=== PATIENT | male | born 1950 | race Caucasian/White ===

== ENCOUNTER 2017-09-14 11:22 | Inpatient (IN) ==
[2017-09-14 12:47] VITALS: BMI 37.6
[2017-09-14] MEDS ORDERED: ALBUTEROL 2.5mg/3ml (0.083%) NEB AEROSOL PRN (13:15)
[2017-09-14] MEDS ORDERED: ACETAMINOPHEN 325 MG TABLET PO PRN (13:15)
--- OUTSIDE RECORDS SUMMARY | 2017-09-14 13:24 | External Medical Summary | Continuity of Care Document ---
:1950 Author Organization [facility] Care Team Providers Name Role Phone Surinder Pleitez MD Unavailable Unavailable Insurance Providers Payer Name Policy Number Subscriber Name Relationship Humana [id number] JesusJunior Sr 17 Self / Same As Patient Medicare A And B [id number] Junior Lee Sr 18 Self / Same As Patient Advance Directives Directive Response Recorded Date/Time Advanced Directives Not applicable 01/09/16 3:40am Chief Complaint and Reason for Visit Chief Complaint Pain Reason for Visit [id number] Problems Active Problems Medical Problem Onset Date Status Ureterolithiasis ~10/31/2014 Acute Medications Current Home Medications Medication Dose Units Route Directions Days/Qty Instructions Start Date Acetaminophen/Hydr 1-2 Tab ORAL Every 6 Hours as 20 01/09/16 ocodone Bitart 1 needed for Pain Each Tamsulosin Hcl 0.4 0.4 Mg ORAL Daily 7 01/09/16 Mg Past Home Medications Medication Directions Ordered Status Hydrocodone Bit/Acetaminophen 1 Every 4HRS as needed for Severe 10/31/14 Discontinued Each Tablet, 1 Each Oral Pain Hydrocodone Bit/Acetaminophen 1 Four Times Daily as needed for 05/23/15 Discontinued Each Tablet, 1 Each Oral Severe Pain Social History Query Response Start Date Stop Date Smoking Status Never smoker Hospital Discharge Instructions No hospital discharge instructions. Plan of Care Discharge Date 01/09/16 5:00am Disposition 01 HOME OR SELF-CARE Condition at Discharge Stable Instructions/Education Provided Nephrolithiasis (ED) Renal Colic (ED) Prescriptions See Medication Section Referrals Surinder Pleitez MD - Additional Instructions/Education Follow up in the office if symptoms not completely resolved in 3-5 days, sooner if worsen. Ibuprofen 800mg 4 times daily for pain. Some of your test results may not be complete prior to your leaving the Emergency Department. The Emergency Department is not authorized to give test results over the phone. Please contact the doctor's office listed in this packet of information for your final results. Follow up with your primary care physician or return to the Emergency Department for worsening or worrisome symptoms. * Emergency Department phone number: [phone], x [phone]* MEDICAL RECORD If you need copies of your X-rays, call [phone] x [phone]. If you need copies of your medical record, including lab results, a signed authorization for release of records will be required. A telephone call for release of Health Information is not allowed. BILLING Billing can sometimes be confusing and frustrating. To help avoid confusion in the future, please take a moment to acquaint yourself with the billing parties for services. [employer] Emergency Room Services [facility] Physician Services [facility] X[facility] Patients will receive bills for services from the appropriate provider. If you have any questions about your [facility] bill, our staff will be happy to assist you. Please call [phone], and ask for the billing department. THANK YOU for choosing [facility] as your emergency care provider! Care Plan and Goals ~~Discharge Care Plan~~ Problem: Kidney stone Goal: Pass the kidney stone and decrease pain. Instructions: Strain all urine. When you pass the kidney stone, keep stone and take it to the physician's office as directed, for stone analysis. Drink 6-8 glasses of water or fresh squeezed lemonade. Follow discharge instructions as directed. Functional Status No functional status results. Allergies, Adverse Reactions, Alerts No known allergies. Immunizations Name Given Type Status Date Influenza Vaccine Received if Current 01/07/16 Historical Historical Vital Signs Acute Vital Signs Vital Response Date/Time Temperature (Fahrenheit) 97.5 01/09/2016 5:33am Pulse 91 bpm 01/09/2016 5:33am Respirations 20 01/09/2016 5:33am Height 6 ft 2 in Weight 352 lb Body Mass Index 45.0 kg/m^2 Results Laboratory Results Test Name Result Units Flags Reference Collection Result Comments Date/Time Date/Time White Blood Count 8.28 10^3uL 4.0-11.0 01/09/2016 01/09/2016 4:00am 4:27am Red Blood Count 4.19 10^6uL L 4.50-5.50 01/09/2016 01/09/2016 4:00am 4:27am Hemoglobin 13.5 g/dL 13.5-17.0 01/09/2016 01/09/2016 4:00am 4:27am Hematocrit 38.90 % L 39.00-50.00 01/09/2016 01/09/2016 4:00am 4:27am Mean Corpuscular 93 FL 80-100 01/09/2016 01/09/2016 Volume 4:00am 4:27am Mean Corpuscular 32.2 PG 26.0-34.0 01/09/2016 01/09/2016 Hemoglobin 4:00am 4:27am Mean Corpuscular 34.7 g/dL 31.0-37.0 01/09/2016 01/09/2016 Hemoglobin Concent 4:00am 4:27am Red Cell 13.0 % 11.8-15.6 01/09/2016 01/09/2016 Distribution Width 4:00am 4:27am Platelet Count 179 10^3uL 150-450 01/09/2016 01/09/2016 4:00am 4:27am Mean Platelet 9.9 FL H 6.0-9.5 01/09/2016 01/09/2016 Volume 4:00am 4:27am Neutrophils (%) 66 % 51-67 01/09/2016 01/09/2016 (Auto) 4:00am 4:27am Lymphocytes (%) 20 % 20-46 01/09/2016 01/09/2016 (Auto) 4:00am 4:27am Monocytes (%) 11 % 3-11 01/09/2016 01/09/2016 (Auto) 4:00am 4:27am Eosinophils (%) 3 % 0-4 01/09/2016 01/09/2016 (Auto) 4:00am 4:27am Basophils (%) 0 % 0-2 01/09/2016 01/09/2016 (Auto) 4:00am 4:27am Neutrophils # 5.5 X10^3 01/09/2016 01/09/2016 (Auto) 4:00am 4:27am Lymphocytes # 1.6 X10^3 01/09/2016 01/09/2016 (Auto) 4:00am 4:27am Monocytes # (Auto) 0.9 X10^3 01/09/2016 01/09/2016 4:00am 4:27am Eosinophils # 0.2 10^3uL 01/09/2016 01/09/2016 (Auto) 4:00am 4:27am Basophils # (Auto) 0.0 10^3uL 01/09/2016 01/09/2016 4:00am 4:27am Volume Urine 12 mL 01/09/2016 01/09/2016 Centrifuged 3:40am 4:32am Urine Collection CLEAN 01/09/2016 01/09/2016 Type CATCH 3:40am 4:32am Urine Color Yellow 01/09/2016 01/09/2016 3:40am 4:31am Urine Clarity Clear 01/09/2016 01/09/2016 3:40am 4:31am Urine pH 5.0 5.0 - 8.0 01/09/2016 01/09/2016 3:40am 4:31am Urine Specific >=1.030 1.005-1.030 01/09/2016 01/09/2016 [place] 3:40am 4:31am Urine Protein 1+ H Negative 01/09/2016 01/09/2016 3:40am 4:31am Urine Glucose (UA) Negative Negative 01/09/2016 01/09/2016 3:40am 4:31am Urine RBC (Auto) 3+ H Negative 01/09/2016 01/09/2016 3:40am 4:31am Urine Ketones Negative Negative 01/09/2016 01/09/2016 3:40am 4:31am Urine Nitrite Negative Negative 01/09/2016 01/09/2016 3:40am 4:31am Urine Bilirubin Negative Negative 01/09/2016 01/09/2016 3:40am 4:31am Urine Urobilinogen 0.2 mg/dL 0.2-1.0 01/09/2016 01/09/2016 3:40am 4:31am Urine Leukocyte Negative Negative 01/09/2016 01/09/2016 Esterase 3:40am 4:31am Urine RBC >100 /HPF 01/09/2016 01/09/2016 3:40am 4:32am Urine WBC 2-5 /HPF 01/09/2016 01/09/2016 3:40am 4:32am Urine Bacteria None Seen /HPF 01/09/2016 01/09/2016 3:40am 4:32am Urine Squamous 10-20 /LPF 01/09/2016 01/09/2016 Epithelial Cells 3:40am 4:32am Urine Mucus 2+ H 01/09/2016 01/09/2016 3:40am 4:32am Sodium Level 143 mmol/L 135-150 01/09/2016 01/09/2016 4:00am 4:26am Potassium Level 5.0 mmol/L # 3.5-5.1 01/09/2016 01/09/2016 4:00am 4:26am Chloride Level 105 mmol/L 98-108 01/09/2016 01/09/2016 4:00am 4:26am Carbon Dioxide 28 mmol/L 22-29 01/09/2016 01/09/2016 Level 4:00am 4:26am Anion Gap 15.1 MEQ/L H 3-15 01/09/2016 01/09/2016 4:00am 4:26am Blood Urea Nitrogen 17 mg/dL # 7-18 01/09/2016 01/09/2016 4:00am 4:26am Creatinine 1.30 mg/dL 0.8-1.5 01/09/2016 01/09/2016 4:00am 4:26am BUN/Creatinine 13 10-20 01/09/2016 01/09/2016 Ratio 4:00am 4:26am Estimat Glomerular 66.8 01/09/2016 01/09/2016 Filtration Rate 4:00am 4:26am Estimated GFR 55.2 01/09/2016 01/09/2016 (Non- 4:00am 4:26am [place] Glucose Level 117 mg/dL H 70-110 01/09/2016 01/09/2016 4:00am 4:26am Calculated 278 mosm/L L 280-300 01/09/2016 01/09/2016 Osmolality 4:00am 4:26am Calcium Level 9.0 mg/dL 8.8-10.8 01/09/2016 01/09/2016 4:00am 4:26am Calcium/Ionized 3.7 mg/dL L 3.8-4.6 01/09/2016 01/09/2016 Calcium Ratio 4:00am 4:26am Total Bilirubin 0.8 mg/dL 0.1-1.0 01/09/2016 01/09/2016 4:00am 4:26am Alkaline 84 U/L 38-126 01/09/2016 01/09/2016 Phosphatase 4:00am 4:26am Aspartate Amino 28 U/L 15-37 01/09/2016 01/09/2016 Transf (AST/SGOT) 4:00am 4:26am Alanine 24 U/L L 30-65 01/09/2016 01/09/2016 Aminotransferase 4:00am 4:26am (ALT/SGPT) Total Protein 8.1 g/dL 6.4-8.5 01/09/2016 01/09/2016 4:00am 4:26am Albumin 3.9 g/dL 3.4-5.0 01/09/2016 01/09/2016 4:00am 4:26am Albumin/Globulin 0.928 L 1.1-1.8 01/09/2016 01/09/2016 Ratio 4:00am 4:26am Procedures No known history of procedures. Encounters Encounter Location Arrival/Admit Date Discharge/Depart Date Attending Provider Departed [facility] 01/09/16 3:21am 01/09/16 5:00am [facility] Reyna Hare MD Recent Diagnosis
--- OUTSIDE RECORDS SUMMARY | 2017-09-14 13:24 | External Medical Summary | Summary of Care ---
:1950 Author Name Nayana Griggs Address [address] Unavailable [place], [place] [id number] Care Team Providers Name Role Phone Nayana Griggs Unavailable Unavailable Surinder Henriquez Unavailable Unavailable Unavailable Unavailable Unavailable Functional Status Functional Status Health Issues Name Dates Details Functional status health issues are not documented Status: Cognitive Status Health Issues Name Dates Details Cognitive status health issues are not documented Status: Problems Name Dates Details Hematuria (599.70, R31.9) Status: Active Recurrent UTI (urinary tract infection) (599.0, N39.0) Status: Active Postoperative visit (V58.49, Z48.89) Status: Active Infected tooth (522.4, K04.7) Status: Active 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.2, D49.2) Status: Active Medications Name Dates Details Medication not documented Allergies and Adverse Reactions Name Dates Details No Known Allergies (Allergy) Status: Active Past Medical History Name Dates Details History of kidney stones (V13.01, Z87.442) Status: Resolved History of Request for circumcision Status: Resolved Procedures Procedure Dates Details History of Elective Cardioversion External Completed: History of Elective Circumcision Procedures not documented Immunization Name Dates Details Immunizations not documented Family History Mother Name Dates Details Family history of Status: Active Family history of Dementia in Alzheimer's disease (331.0, G30.9) Status: Active Father Name Dates Details Family history of Status: Active Family history of lung cancer (V16.1, Z80.1) Status: Active Social History Name Dates Details - Status: Smoking Status Name Dates Details Former smoker Vital Signs Date Test Result Details 15-Mar-2016 08:19 BP Systolic 130 mm[Hg] Status: Comments: Location: ; Position: BP Diastolic 98 mm[Hg] Status: Comments: Location: ; Position: Temperature 97.5 f Status: Comments: Method: Heart Rate 92 /min Status: Comments: Location: ; Weight 356.375 lb Status: Physical Findings 98 Status: Comments: O2 Saturation Body Mass Index Calculated 45.76 kg/m2 Status: Body Surface Area Calculated 2.78 m2 Status: Results Date Description Value Details Results not documented Plan of Care Name Dates Details Planned Observations Planned Goals not documented Instructions Name Dates Details Instructions not documented Encounters Appointment; Shaw Saravia M.D. On 31-Dec-2015 Encounter Diagnosis: Problem not documented 16:20 Appointment; Jose Eduardo Bradley M.D. On Encounter Diagnosis: Problem not documented 10:30 Appointment; Jose Eduardo Bradley M.D. On Encounter Diagnosis: Problem not documented 09:00 Appointment; Jose Eduardo Bradley M.D. On Encounter Diagnosis: Problem not documented 11:00
--- OUTSIDE RECORDS SUMMARY | 2017-09-14 13:24 | External Medical Summary | Summary of Care ---
:1950 Author Name Jose Eduardo Bradley M.D. Address Unavailable Unavailable , Care Team Providers Name Role Phone MartinezSurinder Primary Care Provider Unavailable Unavailable Unavailable Unavailable Functional Status Functional Status Health Issues Name Dates Details Functional status health issues are not documented Status: Cognitive Status Health Issues Name Dates Details Cognitive status health issues are not documented Status: Problems Name Dates Details Request for circumcision Status: Active Encounter for circumcision (V50.2, Z41.2) Status: Active Phimosis (605, N47.1) Status: Active Medications Name Dates Details No Reported Medications Refills: 0 Active Allergies and Adverse Reactions Name Dates Details No Known Allergies Status: Active Past Medical History Name Dates Details History of kidney stones (V13.01, Z87.442) Status: Resolved Procedures Procedure Dates Details History of Elective Cardioversion External Completed: Procedures not documented Immunization Name Dates Details Immunizations not documented Family History Mother Name Dates Details Family history of Status: Active Family history of Dementia in Alzheimer's disease (331.0, G30.9) Status: Active Father Name Dates Details Family history of Status: Active Family history of lung cancer (V16.1, Z80.1) Status: Active Social History Name Dates Details Smoking StatusFormer smoker Vital Signs Date Test Result Details 08:15 BP Systolic 169 mm[Hg] Status: BP Diastolic 90 mm[Hg] Status: Heart Rate 89 /min Status: Height 74 in Status: Weight 316 lb Status: Body Mass Index Calculated 40.57 kg/m2 Status: Body Surface Area Calculated 2.64 m2 Status: 10:46 Height 74 in Status: Results Date Description Value Details Results not documented Plan of Care Planned Observations Name Dates Details Planned Goals not documented Goal Instructions Instructions not documented Encounters Appointment; Jose Eduardo Bradley On Encounter Diagnosis: Problem not documented 09:00 Appointment; Jose Eduardo Bradley On Encounter Diagnosis: Problem not documented 11:00
--- OUTSIDE RECORDS SUMMARY | 2017-09-14 13:24 | External Medical Summary | Summary of Care ---
:1950 Author Name Jose Eduardo Bradley M.D. Address Unavailable Unavailable , Care Team Providers Name Role Phone Jem Sherwood M.D. Unavailable Unavailable Jose Eduardo Bradley M.D. Unavailable Unavailable Chris Crawford M.D. Unavailable Unavailable Surinder Henriquez Primary Care Provider Unavailable Unavailable Unavailable Unavailable Functional Status Functional Status Health Issues Name Dates Details Functional status health issues are not documented Status: Cognitive Status Health Issues Name Dates Details Cognitive status health issues are not documented Status: Problems Name Dates Details Request for circumcision Status: Active Encounter for circumcision (V50.2, Z41.2) Status: Active Balanitis (607.1, N48.1) Status: Active Phimosis (605, N47.1) Status: Active Medications Name Dates Details Aspirin 81 MG TABS Refills: 0 Jem Sherwood M.D. Started ActiveAtenolol 50 MG Oral Tablet TAKE 1 TABLET DAILY. Quantity: 30 Refills: 3 Chris Crawford M.D. Started ActiveClotrimazole-Betamethasone 1-0.05 % External Cream Apply to affected area twice daily x 2 weeks Quantity: 1 Refills: 0 Jose Eduardo Bradley M.D. Started Jetoww14 GM Tube Allergies and Adverse Reactions Name Dates Details [...] smoker Vital Signs Date Test Result Details 10:46 Height 74 in Status: Results Date Description Value Details Results not documented Plan of Care Planned Observations Name Dates Details Planned Goals not documented Goal Planned Encounters Appointment; Provider: Jose Eduardo Bradley On 09:00 Instructions Instructions not documented Encounters Appointment; Jose Eduardo Bradley On Encounter Diagnosis: Problem not documented 11:00
--- OUTSIDE RECORDS SUMMARY | 2017-09-14 13:25 | External Medical Summary | Summary of Care ---
:1950 Author Name Jose Eduardo Bradley M.D. Address [address] [place] [address] [place] [address] Care Team Providers Name Role Phone Jose Eduardo Bradley M.D. Unavailable Unavailable Surinder Henriquez Unavailable Unavailable Unavailable [...] Active Postoperative visit (V58.49, Z48.89) Status: Active Medications Name Dates Details TraMADol HCl - 50 MG Oral Tablet 1 tablet po every 4 hours prn Quantity: 40 Refills: 0 Jose Eduardo Bradley M.D. Start Active Allergies and Adverse Reactions Name Dates [...] Details 08:15 BP Systolic 169 mm[Hg] Status: Comments: Location: ; Position: BP Diastolic 90 mm[Hg] Status: Comments: Location: ; Position: Heart Rate 89 /min Status: Comments: Location: ; Height 74 in Status: Weight 316 lb Status: Body Mass Index Calculated 40.57 kg/m2 Status: Body Surface Area Calculated 2.64 m2 Status: 10:46 Height 74 in Status: Results Date Description Value Details Results not documented Plan of Care Name Dates Details Planned Observations Planned Goals not documented Instructions Name Dates Details Instructions not documented Encounters Appointment; Jose Eduardo Bradley M.D. On Encounter Diagnosis: Problem not documented 09:00 Appointment; Jose Eduardo Bradley M.D. On Encounter Diagnosis: Problem not documented 11:00
--- OUTSIDE RECORDS SUMMARY | 2017-09-14 13:25 | External Medical Summary | Continuity of Care Document ---
:1950 Author Organization [facility] Care Team Providers Name Role Phone Surinder Pleitez MD Unavailable Unavailable Insurance Providers Payer Name Policy Number Subscriber Name Relationship [employer] [id number] Junior Lee Sr 17 Self / Same As Patient Medicare A And B [id number] Junior Lee Sr 17 Self / Same As Patient Advance Directives Directive Response Recorded Date/Time Advanced Directives No 05/06/16 7:05pm Chief Complaint and Reason for Visit Chief Complaint Skin Condition Reason for Visit Erythrasma Problems Active Problems Medical Problem Onset Date Status Erythrasma Unknown Acute Left medial knee pain Unknown Acute Ureterolithiasis ~10/31/2014 Acute Medications Current Home Medications Medication Dose Units Route Directions Days/Qty Instructions Start Date Ibuprofen (Motrin) 400 Mg ORAL As Needed 05/06/16 400 Mg Erythromycin 30 Gm TOPICAL Twice A Day 10 Days 05/06/16 Base/Ethanol 30 Gm Erythromycin Base 500 Mg ORAL Four Times Daily 10 Days 05/06/16 500 Mg Past Home Medications Medication Directions Ordered Status Hydrocodone Bit/Acetaminophen 1 Every 4HRS as needed for Severe 10/31/14 Discontinued Each Tablet, 1 Each Oral Pain Hydrocodone Bit/Acetaminophen 1 Four Times Daily as needed for 05/23/15 Discontinued Each Tablet, 1 Each Oral Severe Pain Acetaminophen/Hydrocodone Bitart Every 6 Hours as needed for 01/09/16 Discontinued 1 Each Tablet, 1-2 Tab Oral Pain Tamsulosin Hcl 0.4 Mg Cap, 0.4 Daily 01/09/16 Discontinued Mg Oral Tramadol Hcl 50 Mg Tablet, 50 Mg Four Times Daily as needed for 03/02/16 Discontinued Oral Severe Pain Social History Query Response Start Date Stop Date Smoking Status Former smoker Hospital Discharge Instructions No hospital discharge instructions. Plan of Care Discharge Date 05/06/16 8:30pm Disposition 01 HOME OR SELF-CARE Condition at Discharge Stable Instructions/Education Provided Cellulitis (Skin Infection), Adult (DC) Prescriptions See Medication Section Referrals Surinder Pleitez MD - Additional Instructions/Education Erythromycin 2% Gel, as Rx'd, apply twice a day for 10 days, 1 refill. Erythromycin 500mg as Rx'd, orally, four times a day for 10 days, 1 refill. Keep area as dry as possible. Loose clothing. Try to lose weight. Avoid excessive heat also -- no heat lamps on the area. Use an Anti-bacterial soap, such as Dove or other brand, daily. Follow up with PCP next week to re-evaluate. Some of your test results may not [...] worrisome symptoms. * Emergency Department phone number: [phone], x [phone]* MEDICAL RECORD If you need copies of your X-rays, call [phone] x [phone]. If you need copies of [...] the billing parties for services. SERVICE [employer]ILLING [employer] Emergency Room Services [facility] Physician Services [facility] X-rays [facility] Patients will receive bills for services from the appropriate provider. If you have any questions about your [facility] bill, our staff will be happy to assist you. Please call [phone], and ask for the billing department. THANK YOU for choosing [facility] as your emergency care provider! Care Plan and Goals ~~Discharge Care Plan~~ Problem: Rash/hives Goal: Decreased redness, itching, and blotches. Instructions: Take medication(s) as directed. Keep a log of medication times and dosages to avoid over or under dosage. Avoid triggers that cause your rash or hives. Call return for worsening of symptoms Functional Status No functional status results. Allergies, Adverse Reactions, Alerts Allergen Type Severity Reaction Status Last Updated No Known Allergies Allergy Unknown Active 05/06/16 Immunizations Name Given Type Status Date Influenza Vaccine Received if Current 01/07/16 Historical Historical Vital Signs Acute Vital Signs Vital Response Date/Time Temperature (Fahrenheit) 99.0 05/06/2016 7:05pm Pulse 77 bpm 05/06/2016 8:28pm Respirations 20 05/06/2016 8:28pm Height 6 ft 2 in Weight 360 lb Body Mass Index 46.0 kg/m^2 Results No known relevant diagnostic tests, laboratory data and/or discharge summary. Procedures No known history of procedures. Encounters Encounter Location Arrival/Admit Date Discharge/Depart Date Attending Provider Departed [facility] 05/06/16 6:58pm 05/06/16 8:30pm [facility] Emergency Room [facility] DIEGO Duarte MD Recent Diagnosis
--- OUTSIDE RECORDS SUMMARY | 2017-09-14 13:25 | External Medical Summary | Continuity of Care Document ---
:1950 Author Organization Care Team Providers Name Role Phone Surinder Pleitez MD Unavailable Unavailable Insurance Providers Payer Name Policy Number Subscriber Name Relationship [employer] [id number] Junior Lee Sr 17 Self / Same As Patient Medicare A And B [id number] Junior Lee Sr 17 Self / Same As Patient Advance Directives Directive Response Recorded Date/Time Advanced Directives No 03/02/16 7:50pm Chief Complaint and Reason for Visit Chief Complaint Pain Reason for Visit Left medial knee pain Problems Active Problems Medical Problem Onset Date Status Left medial knee pain Unknown Acute Ureterolithiasis ~10/31/2014 Acute Medications Current Home Medications Medication Dose Units Route Directions Days/Qty Instructions Start Date Tramadol Hcl 50 Mg 50 Mg ORAL Four Times Daily 20 03/02/16 as needed for Severe Pain Past Home Medications Medication Directions Ordered Status [...] Cap, 0.4 Daily 01/09/16 Discontinued Mg Oral Social History Query Response Start Date Stop Date Smoking Status Never smoker Hospital Discharge Instructions No hospital discharge instructions. Plan of Care Discharge Date 03/02/16 8:45pm Disposition 01 HOME OR SELF-CARE Condition at Discharge Stable Instructions/Education Provided Knee Sprain (ED) Prescriptions See Medication Section Referrals Surinder Pleitez MD - Additional Instructions/Education Keep Left knee ALESHIA and splint, except to shower. Elevate, ice for another 24 hours. OTC Tylenol, per bottle, as main pain med. Ultram 50mg as Dispensed / Rx'd, as needed for severe pain. Follow up with PCP next week. You might need an MRI to further evaluate. Some of your test results may not [...] worrisome symptoms. * Emergency Department phone number: [phone], x [phone]* MEDICAL RECORD If you need copies of your X-rays, call [phone]. If you need copies of [...] [facility] [employer] Emergency Room Services Physician Services [facility] Patients will receive bills for services from the appropriate provider. If you have any questions about your bill, our staff will be happy to assist you. Please call [phone], and ask for the billing department. THANK YOU for choosing as your emergency care provider! Care Plan and Goals ~~Discharge Care Plan~~ Problem: Sprain, strain or fracture of extremity Goal: Extremity will be pink and warm to touch, with good movement of fingers or toes. Instructions: Apply ice bag and elevate extremity above the level of your heart. Monitor extremity for pink color to fingers or toes and movement. Call your physician if extremity becomes blue in color or cool to touch. Some swelling of fingers or toes is expected, continue to wiggle fingers and toes and keep elevated. Allow 24-48 hours for the splint to dry completely. Do not place splint on a hard surface to avoid a pressure area. Take medication(s) as directed. Follow up with Orthopedic or primary care physician as directed. Functional Status No functional status results. Allergies, Adverse Reactions, Alerts Allergen Type Severity Reaction Status Last Updated No Known Allergies Allergy Unknown Active 03/02/16 Immunizations Name Given Type Status Date Influenza Vaccine Received if Current 01/07/16 Historical Historical Vital Signs Acute Vital Signs Vital Response Date/Time Temperature (Fahrenheit) 97.9 03/02/2016 8:46pm Pulse 90 bpm 03/02/2016 8:46pm Respirations 20 03/02/2016 8:46pm Height 6 ft 2 in Weight 361 lb Body Mass Index 46.0 kg/m^2 Results No known relevant diagnostic tests, laboratory data and/or discharge summary. Procedures No known history of procedures. Encounters Encounter Location Arrival/Admit Date Discharge/Depart Date Attending Provider Departed Mackenzie 03/02/16 7:50pm 03/02/16 8:45pm LUZ [facility] Emergency Room [facility] DIEGO Duarte MD Recent Diagnosis
--- OUTSIDE RECORDS SUMMARY | 2017-09-14 13:25 | External Medical Summary | Summary of Care ---
:1950 Author Name Jose Eduardo Bradley M.D. Address [address] [place] [address] [place] [address] Care Team Providers Name Role Phone Jose Eduardo Bradley M.D. Unavailable Unavailable Surinder Henriquez Primary Care [...] N47.1) Status: Active Medications Name Dates Details TraMADol HCl - 50 MG Oral Tablet 1 tablet po every 4 hours prn Quantity: 40 Refills: 0 Jose Eduardo Bradley M.D. Started Active Allergies and Adverse Reactions Name Dates [...] Encounters Appointment; Provider: Jose Eduardo Bradley On 10:30 Appointment; Provider: Jose Eduardo Bradley On 13:30 Instructions Instructions not documented Encounters Appointment; Jose Eduardo Bradley On Encounter Diagnosis: Problem not documented 09:00 Appointment; Jose Eduardo Bradley On Encounter Diagnosis: Problem not documented 11:00
--- OUTSIDE RECORDS SUMMARY | 2017-09-14 13:25 | External Medical Summary | Continuity of Care Document ---
:1950 Author Organization [facility] Care Team Providers Name Role Phone Surinder Pleitez MD Unavailable Unavailable Insurance Providers Payer Name Policy Number Subscriber Name Relationship [employer] [id number] Junior Lee Sr 17 Self / Same As Patient Advance Directives Directive Response Recorded Date/Time Advanced Directives No 05/27/16 7:46am Chief Complaint and Reason for Visit Chief Complaint Skin Condition Reason for Visit Abscess of skin or subcutaneous tissue [id number] Problems Active Problems Medical Problem Onset Date Status Abscess of leg, right Unknown Acute Abscess of skin or subcutaneous tissue Unknown Acute Erythrasma ~05/06/2016 Acute Left medial knee pain Unknown Resolved Ureterolithiasis ~10/31/2014 Resolved Medications Current Home Medications Medication Dose Units Route Directions Days/Qty Instructions Start Date Ibuprofen (Motrin) 400 Mg ORAL As Needed 05/06/16 400 Mg Erythromycin 30 Gm TOPICAL Twice A Day 10 Days 05/06/16 Base/Ethanol 30 Gm Erythromycin Base 500 Mg ORAL Four Times Daily 10 Days 05/06/16 500 Mg Sulfamethoxazole/T 1 Tab ORAL Three Times A 30 05/27/16 rimethoprim 1 Each Day Past Home Medications Medication Directions Ordered Status [...] discharge instructions. Plan of Care Discharge Date 05/27/16 8:10am Disposition 01 HOME OR SELF-CARE Condition at Discharge Stable Instructions/Education Provided Skin Abscess Prescriptions See Medication Section Referrals Surinder Pleitez MD - Additional Instructions/Education Some of your test results may not [...] worrisome symptoms. * Emergency Department phone number: [phone], x [phone]* MEDICAL RECORD If you need copies of your X-rays, call [phone]. If you need copies of [...] the billing parties for services. [facility] [employer] Emergency Room Services [facility] Physician Services [facility] X-rays [facility] Patients will receive bills for services from the appropriate provider. If you have any questions about your [facility] bill, our staff will be happy to assist you. Please call [phone], and ask for the billing department. THANK YOU for choosing [facility] as your emergency care provider! Care Plan and Goals ~~Discharge Care Plan~~ Problem: Wound care and treatment Goal: Wound will be clean and dry, without redness, swelling or drainage. Instructions: Take medication(s) as prescribed. Keep wound clean and dry. Apply antibiotic ointment as directed. Follow up with primary care physician as directed. Keep wound covered if working in an unclean environment. Functional Status No functional status results. Allergies, Adverse Reactions, Alerts Allergen Type Severity Reaction Status Last Updated No Known Allergies Allergy Unknown Active 05/27/16 Immunizations Name Given Type Status Date Influenza Vaccine Received if Current 01/07/16 Historical Historical Vital Signs Acute Vital Signs Vital Response Date/Time Temperature (Fahrenheit) 96.9 05/27/2016 8:01am Pulse 74 bpm 05/27/2016 8:01am Respirations 16 05/27/2016 8:01am Height 6 ft 2 in Weight 359 lb Body Mass Index 46.0 kg/m^2 Results No known relevant diagnostic tests, laboratory data and/or discharge summary. Procedures Procedure Status Date Provider(s) EMERGENCY DEPT VISIT Completed 05/06/16 Encounters Encounter Location Arrival/Admit Date Discharge/Depart Date Attending Provider Departed Mack[facility] 05/27/16 7:37am 05/27/16 8:10am [facility] Emergency Room [facility] PRADEEP Harrison MD Departed Arechiga 05/06/16 6:58pm 05/06/16 8:30pm [facility] Room [facility] DIEGO Duarte MD Recent Diagnosis
--- OUTSIDE RECORDS SUMMARY | 2017-09-14 13:25 | External Medical Summary | Summary of Care ---
:1950 Author Name Shaw Saravia M.D. Address Unavailable Unavailable , Care Team Providers Name Role Phone Shaw Saravia M.D. Unavailable Unavailable Surinder Henriquez Unavailable Unavailable [...] Active Infected tooth (522.4, K04.7) Status: Active Medications Name Dates Details Clarithromycin 500 MG Oral Tablet TAKE 1 TABLET EVERY 12 HOURS DAILY. Quantity: 20 Refills: 1 Shaw Saravia M.D. Start 31-Dec-2015 Active Allergies and Adverse Reactions Name Dates [...] smoker Vital Signs Date Test Result Details 31-Dec-2015 16:26 BP Systolic 148 mm[Hg] Status: Comments: Location: ; Position: BP Diastolic 90 mm[Hg] Status: Comments: Location: ; Position: Temperature 98.2 f Status: Comments: Method: Heart Rate 103 /min Status: Comments: Location: ; Weight 356 lb Status: Physical Findings 95 Status: Comments: O2 Saturation Body Mass Index Calculated 45.71 kg/m2 Status: Body Surface Area Calculated 2.78 m2 Status: Results Date Description Value Details Results not documented Plan of Care Name Dates Details Planned Observations Planned Goals not documented Interventions Provided Medication ChangesClarithromycin 500 MG Oral Tablet - Start Instructions Name Dates Details Instructions not documented Encounters Appointment; Jose Eduardo Bradley M.D. On Encounter Diagnosis: Problem not documented 10:30 Appointment; Jose Eduardo Bradley M.D. On Encounter Diagnosis: Problem not documented 09:00 Appointment; Jose Eduardo Bradley M.D. On Encounter Diagnosis: Problem not documented 11:00
--- OUTSIDE RECORDS SUMMARY | 2017-09-14 13:25 | External Medical Summary | Continuity of Care Document ---
:1950 Author Organization [facility] Care Team Providers Name Role Phone Surinder Pleitez MD Unavailable Unavailable Insurance Providers Payer Name Policy Number Subscriber Name Relationship [employer] [id number] Junior Lee Sr 17 Self / Same As Patient Chief Complaint and Reason for Visit Chief Complaint GI Complaint Reason for Visit [id number] Problems Medical Problems Problem Onset Date Status Ureterolithiasis ~10/31/2014 Active Medications Medication Dose Route Sig Days/Qty Instructions Order Discontinued Status Date Date Hydrocodone 1 Each ORAL EVERY 20 Qty Active Bit/Acetaminop 4HRS PRN 5 hen SEVERE PAIN Social History No social history. Hospital Discharge Instructions No hospital discharge instructions. Plan of Care Discharge Date 10/31/14 5:23am Disposition 01 HOME OR SELF-CARE Condition at Discharge Stable Instructions/Education Provided Nephrolithiasis (ED) Prescriptions See Medications Section Referrals Surinder Pleitez MD Additional Instructions/Education Push fluids. Strain urine, collect any stones for your PCP. OTC Ibuprofen 400mg every 6 to 8 hours with food as needed, as main pain med. Hydrocodone 5's as Dispensed / Rx'd, as needed for severe pain. Follow up with PCP in 3 days. Return to ER as needed. Some of your test results may not [...] worrisome symptoms. * Emergency Department phone number: [phone], x [phone]* MEDICAL RECORD If you need copies of your X-rays, call [phone]. If you need copies of [...] [facility]ICE [facility] [employer] Emergency Room Services [facility] Physician Services [facility] X-rays [facility] Patients will receive bills for services from the appropriate provider. If you have any questions about your [facility] bill, our staff will be happy to assist you. Please call [phone], and ask for the billing department. THANK YOU for choosing [facility] as your emergency care provider! Functional Status No functional status results. Allergies, Adverse Reactions, Alerts Allergen Type Severity Reaction Status Last Updated No Known Drug Allergies Active 10/31/14 Immunizations No immunization records. Vital Signs Acute Vital Signs Vital Response Date/Time Temperature (Fahrenheit) 97.4 Pulse 90 bpm Respirations 20 Height 6 ft 2 in Weight 356 lb Body Mass Index 45.0 kg/m^2 Results Test Source Date Result Interp. Ref. Range Comments Albumin/Globulin October 31, 1.058 L 1.1-1.8 Ratio 2014 2:47am Albumin October 31, 3.6 g/dL N 3.4-5.0 2014 2:47am Total Protein October 31, 7.0 g/dL N 6.4-8.5 2014 2:47am Alanine October 31, 21 U/L L 30-65 Aminotransferase 2015 (ALT/SGPT) 2:47am Aspartate Amino October 31, 25 U/L N 15-37 Transf (AST/SGOT) 2014 2:47am Alkaline Phosphatase October 31, 85 U/L N 38-126 2015 2:47am Total Bilirubin October 31, 0.5 mg/dL N 0.1-1.0 2014 2:47am Calcium/Ionized October 31, 4.1 mg/dL N 3.8-4.6 Calcium Ratio 2014 2:47am Calcium Level October 31, 9.2 mg/dL N 8.8-10.8 2014 2:47am Calculated Osmolality October 31, 280 mosm/L N [phone] 2:47am Glucose Level October 31, 133 mg/dL H 70-110 2014 2:47am Estimated GFR October 31, 48.1 (Non- 2015 2:47am Estimat Glomerular October 31, 58.2 Filtration Rate 2014 2:47am BUN/Creatinine Ratio October 31, 8 L 10-20 2014 2:47am Creatinine October 31, 1.47 mg/dL N 0.8-1.5 2014 2:47am Blood Urea Nitrogen October 31, 12 mg/dL N 7-18 2014 2:47am Anion Gap October 31, 14.7 MEQ/L N 3-15 2014 2:47am Carbon Dioxide Level October 31, 26 mmol/L N 22-29 2014 2:47am Chloride Level October 31, 107 mmol/L N 98-108 2014 2:47am Potassium Level October 31, 3.8 mmol/L N 3.5-5.1 2014 2:47am Sodium Level October 31, 144 mmol/L N [phone] 2:47am Urine Calcium Oxalate October 31, 1+ /HPF H Urine Crystals 2014 collection 2:40am method Clean Catch Urine Squamous October 31, 0-2 /LPF Urine Epithelial Cells 2015 collection 2:40am method Clean Catch Urine Bacteria October 31, None seen Urine 2015 /HPF collection 2:40am method Clean Catch Urine WBC October 31, None seen Urine 2015 /HPF collection 2:40am method Clean Catch Urine RBC October 31, 10-20 /HPF H Urine 2015 collection 2:40am method Clean Catch Urine Collection Type October 31, Random voided Urine 2015 collection 2:40am method Clean Catch Volume Urine October 31, <10ml Urine Centrifuged 2015 unspun collection 2:40am method Clean Catch Urine Leukocyte October 31, Negative Negative Urine Esterase 2014 collection 2:40am method Clean Catch Urine Urobilinogen October 31, 1.0 mg/dL 0.2-1.0 Urine 2015 collection 2:40am method Clean Catch Urine Bilirubin October 31, Negative Negative Urine 2014 collection 2:40am method Clean Catch Urine Nitrite October 31, Negative Negative Urine 2014 collection 2:40am method Clean Catch Urine Ketones October 31, Negative Negative Urine 2014 collection 2:40am method Clean Catch Urine RBC (Auto) October 31, 3+ H Negative Urine 2014 collection 2:40am method Clean Catch Urine Glucose (UA) October 31, Negative Negative Urine 2014 collection 2:40am method Clean Catch Urine Protein October 31, Trace H Negative Urine 2014 collection 2:40am method Clean Catch Urine Specific October 31, >=1.030 1.005-1.030 Urine Iron 2014 collection 2:40am method Clean Catch Urine pH October 31, 5.0 5.0 - 8.0 Urine 2014 collection 2:40am method Clean Catch Urine Clarity October 31, Clear Urine 2014 collection 2:40am method Clean Catch Urine Color October 31, Yellow Urine 2014 collection 2:40am method Clean Catch Basophils # (Auto) October 31, 0.0 10^3uL 2014 2:47am Eosinophils # (Auto) October 31, 0.4 10^3uL 2014 2:47am Monocytes # (Auto) October 31, 0.8 X10^3 2014 2:47am Lymphocytes # (Auto) October 31, 2.0 X10^3 2014 2:47am Neutrophils # (Auto) October 31, 5.4 X10^3 2014 2:47am Basophils (%) (Auto) October 31, 0 % N 0-2 2014 2:47am Eosinophils (%) October 31, 4 % N 0-4 (Auto) 2014 2:47am Monocytes (%) (Auto) October 31, 10 % N 3-11 2014 2:47am Lymphocytes (%) October 31, 23 % N 20-46 (Auto) 2014 2:47am Neutrophils (%) October 31, 63 % N 51-67 (Auto) 2014 2:47am Mean Platelet Volume October 31, 9.7 FL H 6.0-9.5 2014 2:47am Platelet Count October 31, 172 10^3uL N 121-669 1817 2:47am Red Cell Distribution October 31, 12.6 % N 11.8-15.6 Width 2014 2:47am Mean Corpuscular October 31, 35.1 g/dL N 31.0-37.0 Hemoglobin Concent 2014 2:47am Mean Corpuscular October 31, 32.7 PG N 26.0-34.0 Hemoglobin 2014 2:47am Mean Corpuscular October 31, 93 FL N 80-100 Volume 2014 2:47am Hematocrit October 31, 39.00 % N 39.00-50.00 2014 2:47am Hemoglobin October 31, 13.7 g/dL N 13.5-17.0 2014 2:47am Red Blood Count October 31, 4.19 10^6uL L 4.50-5.50 2014 2:47am White Blood Count October 31, 8.56 10^3uL N 4.0-11.0 2014 2:47am Procedures No known history of procedures. Encounters Encounter Location Date/Time Departed Emergency Room [facility] 10/31/14 2:26am Recent Diagnosis
--- NOTE | 2017-09-14 13:33 | IRU History & Physical Report ---
HPI IRU Date: Date: 09/14/17 Time: 1330 HPI: Mr. Lee is admitted to the rehabilitation area to try to regain the skills to return to his home. He sustained a stroke on 05/13/2017. Siew affected his left side. Significant sore throat. He has been in skilled rehabilitation at [facility] has continued to progress. He is interested in returning home but needs more intensive rehabilitation to meet that goal. PFSH Hyperglycemia Sleep apnea Hypertension Atrial fib Review of Systems - Constitutional Constitutional: Present: weakness. Absent: anorexia - Cardiovascular Rhythm: Present: abnormal rhythm - Musculoskeletal Musculoskeletal: Present: muscle weakness Medications Home Medications Medication Instructions Recorded Confirmed Type Acetaminophen [Tylenol 650 mg/20.3 325 mg PO Q4H PRN 09/14/17 09/14/17 History ml Soln] Albuterol Sulfate 2.5 mg AEROSOL Q6H PRN 09/14/17 09/14/17 History Aspirin 1 tab PO DAILY 09/14/17 09/14/17 History Atorvastatin [Lipitor] 1 tab PO HS 09/14/17 09/14/17 History Clotrimazole 1% Cream [LOTRIMIN 15 applicatio TOP TID 09/14/17 09/14/17 History Cream] Cyanocobalamin (Vitamin B-12) 1 tab PO DAILY 09/14/17 09/14/17 History [Vitamin B-12] Ferrous Gluconate 1 tab PO WB 09/14/17 09/14/17 History Gabapentin 300 mg PO TID 09/14/17 09/14/17 History Melatonin/Pyridoxine HCl (B6) 1 each PO DAILY PRN 09/14/17 09/14/17 History [Melatonin 3 mg Tablet] Metoprolol Tartrate [Lopressor] 25 mg PO BIDWM 09/14/17 09/14/17 History Pantoprazole Sodium [Protonix] 1 tab PO ACB 09/14/17 09/14/17 History Trazodone [Desyrel] 50 mg PO HS 09/14/17 09/14/17 History Warfarin Sodium [Coumadin] 5 mg PO DAILY 09/14/17 09/14/17 History Allergies Allergy/AdvReac Type Severity Reaction Status Date / Time No Known Allergies Allergy Verified 09/14/17 12:06 Exam Vital Signs: Temperature 97.4 F 06/08/18 11:58 Pulse Rate 87 09/14/17 11:58 Respiratory Rate 20 09/14/17 11:58 Blood Pressure 133/72 09/14/17 11:58 Pulse Oximetry 97 09/14/17 11:58 Height/Weight/BMI: Height 1.88 m Weight 133 kg Body Mass Index 37.6 - Routine Extremities Exam Comments: weakness on the Left side IRU A/P (1) Left hemiparesis Current visit: Yes Status: Acute work on ambulation, transfers and fall prevention (2) CVA (cerebral vascular accident) Qualifiers: CVA mechanism: unspecified Qualified Code(s): I63.9 - Cerebral infarction, unspecified Current visit: Yes Status: Acute DVT Prophylaxis: Coumadin Resuscitation Status: Full Code - Course Hospital Course: Erik Shwa MD: - Interventions to Obtain Goals PT Treatment Plan: Balance/Proprioception, Functional Activities, Gait Training OT Treatment Plan: ADL (Basic Care), Balance Training Goals Progress/Modifications: become as independent as possible
[2017-09-14] MEDS ORDERED: FALL RISK - PHARMACY CONSULT MC ONE (13:38)
--- NOTE | 2017-09-14 13:52 | IRU 24Hr Post Admit Eval ---
24 Hr Post Admission Physical - Relevant Changes Relevant Changes: No Reviewed: I have reviewed the patient's information and concur with the finding and results of the pre-admission screen. Certification: I certify the patient for rehabilitation. - Patient Condition (1) Left hemiparesis Status: Acute Code(s): G81.94 - Hemiplegia, unspecified affecting left nondominant side (2) CVA (cerebral vascular accident) Status: Acute Qualifiers: CVA mechanism: unspecified Qualified Code(s): I63.9 - Cerebral infarction, unspecified Code(s): I63.9 - Cerebral infarction, unspecified - Prior Functional Status Lives With: Spouse Residence Type: Apartment/Private Home Assitive Devices: None Prior Functional Status: Indep. at home or school - Current Functional Status Failed Alternative Therapy: Arrived from Acute Care Patient Requirements: The patient requires oversight by rehabilitation physician to manage their rehabilitation treatment plan and multidisciplinary approach to care that can only be provided in an IRF and requires a multidisciplinary approach to care, provided by professional PTs, OTs, STs, dieticians, RTs, rehabilitation nurses and is not available in lesser levels of care. Limitations Req: Mobility Impairment, ADL Impairment, Limited Mobility Speech Therapy Minutes: 90 Physical Therapy Minutes: 90 Occupational Therapy Minutes: 90 Therapy: The patient is to receive therapy at least 5 days a week. - Complications/Comorbidities Impact on Functional Outcomes: atrial fib, HTN Barriers to Discharge: Weakness, Balance, Endurance - Plan to Avoid Complications Plan to Avoid Complications: The patient cannot receive this care in a lesser intensive setting such as [facility] or Outpatient Therapy due to the patient requiring the following .
--- NOTE | 2017-09-14 15:52 | Consult Note ---
Consult Information - Data of Consult Consult date: 09/14/17 Requesting Physician: Reginald Landaverde MD Primary Care Provider: Surinder Pleitez - Consult Narrative Reason for consult: Management of medical concerns s/p stroke History of present illness: Junior is a very pleasant 67-year-old gentleman who was hospitalized extensively at [facility] following a stroke. 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 On the morning of his stroke, his Justina woke up during the night and hurt the patient gurgling. He was noted to have acute onset of left facial droop and left-sided weakness, and he also fell out of bed. She reports a known history of atrial fibrillation 10 years, and had not previously been treated with any rate controlling agents or anticoagulation. At the time of his initial admission , he was on no medications at home. Following EMS assessment, he was transferred to [facility], where he was found to have a very large acute right MCA stroke. Initial NIH stroke scale was 11. He had very severe cognitive and functional deficits with medical stabilization, therefore he was dismissed to senior living facility. He did require a G-tube initially, but he has been advanced to eating completely by mouth. His G-tube has been successfully removed. He has noted to have new muscle activation in his previously hemiplegic left side. Patient is very motivated to return to more functional lifestyle, therefore he has been accepted at [facility] for more aggressive physical therapy. Patient is fully alert, very pleasant. He reports his main desire is to "make me walk again". He is demonstrating increasing movement of his left leg, and he does have some minor movement of his left arm. He is very cognizant during our visit, is joking around, and participating with therapy as well. Medical records have been extensively reviewed today during his initial visit. He reports that overall, he is feeling well, and does not report any other acute concerns today. Past Medical History Medical History Updates: Large right CVA stroke, involving right cerebral hemisphere and right temporal lobe, insular cortex left carl-neglect, hemianopsia, left arm weakness, dysphasia. Atrial fibrillation. H/O Escherichia coli bacteremia. Hypertension. Morbid obesity. Anemia, iron deficiency and B12 deficiency. Hypokalemia, hypophosphatemia. LUCIE. Hyperlipidemia. Insomnia. Chronic low back pain Surgical History: Lumbar laminectomy Family History: No family history of heart disease Family History: As Above - Social History Smoking status: Never smoker Substance use type: does not use Alcohol intake frequency: a few times a week Housing: house Household members: spouse Current occupational status: employed Current residence: Assisted Review of Systems All systems PM: 10-point ROS was reviewed, no additional remarkable complaints except - Cardiovascular Rhythm: Present: abnormal rhythm - Respiratory Respiratory: Absent: dyspnea, hemoptysis, chest congestion - Genitourinary Genitourinary: Present: urinary incontinence - Musculoskeletal Musculoskeletal: Present: abnormal gait - Neurological Neurological: Present: abnormal gait, abnormal movements, lack of coordination, weakness Medications Home Medications Medication Instructions Recorded Confirmed Type Acetaminophen [Tylenol 650 mg/20.3 325 mg PO Q4H PRN 09/14/17 09/14/17 History ml Soln] Albuterol Sulfate 2.5 mg AEROSOL Q6H PRN 09/14/17 09/14/17 History Aspirin 1 tab PO DAILY 09/14/17 09/14/17 History Atorvastatin [Lipitor] 1 tab PO HS 09/14/17 09/14/17 History Clotrimazole 1% Cream [LOTRIMIN 15 applicatio TOP TID 09/14/17 09/14/17 History Cream] Cyanocobalamin (Vitamin B-12) 1 tab PO DAILY 09/14/17 09/14/17 History [Vitamin B-12] Ferrous Gluconate 1 tab PO WB 09/14/17 09/14/17 History Gabapentin 300 mg PO TID 09/14/17 09/14/17 History Melatonin/Pyridoxine HCl (B6) 1 each PO DAILY PRN 09/14/17 09/14/17 History [Melatonin 3 mg Tablet] Metoprolol Tartrate [Lopressor] 25 mg PO BIDWM 09/14/17 09/14/17 History Pantoprazole Sodium [Protonix] 1 tab PO ACB 09/14/17 09/14/17 History Trazodone [Desyrel] 50 mg PO HS 09/14/17 09/14/17 History Warfarin Sodium [Coumadin] 5 mg PO DAILY 09/14/17 09/14/17 History Allergies Allergy/AdvReac Type Severity Reaction Status Date / Time No Known Allergies Allergy Verified 09/14/17 12:06 Exam Vital Signs: Temperature 97.4 F 09/14/17 11:58 Pulse Rate 87 09/14/17 11:58 Respiratory Rate 20 09/14/17 11:58 Blood Pressure 133/72 09/14/17 11:58 Pulse Oximetry 97 09/14/17 11:58 Height/Weight/BMI: Height 1.88 m Weight 133 kg Body Mass Index 37.6 - Constitutional Present: no acute distress, well nourished, well developed, obese, cooperative - Routine HEENT Exam Head: Present: normocephalic, atraumatic Eye: Present: EOMI, PERRL ENT: Present: mucous membranes moist - Routine Neck Exam Present: trachea midline. Absent: JVD, tenderness - Routine Respiratory Exam Present: decreased breath sounds, CTA bilaterally, diminished air movement. Absent: rales, rhonchi, wheezes, crackles - Routine Cardiovascular Exam Present: S1, S2, no murmur, irregular rhythm - Routine Abdominal Exam Present: soft, normoactive bowel sounds, non distended, non tender - Routine Extremities Exam Present: edema (Trace LE edema left left, some dependent edema left hand/arm) - Routine Skin Exam Present: intact, dry, warm - Routine Neurological Exam Present: alert, oriented X3, sensory deficit, motor deficit, abnormal gait, moving all extremities, vision grossly intact, normal speech. Absent: CN II- XII intact, facial asymmetry - Routine Psychiatric Exam Present: normal affect, normal thought process, cooperative Results - Labs Microbiology Results: Blood culture 1 out of 2 positive for Escherichia coli 05/15/2017 Levaquin 2 weeks per ID recommendations - Impressions 05/11/2017 Brain MRI: Acute cortical infarct involving the right cerebral hemisphere, with the majority of right temporal lobe and insular cortex. No evidence of mass lesion, bleeding or shift. May 11, 2017 Carotid ultrasound: No hemodynamically significant stenosis 05/11/2017 2-D echocardiogram: Moderate left atrial, severe right atrial, mild right ventricular enlargement. EF 60-65%, underlying atrial fib. No right to left shunting. 05/15/2017 Overnight oximetry, revealed significant nocturnal hypoxia 05/15/2017 PEG tube placement, revealed gastric ulcers with successful a PEG tube placement Assessment and Plan (1) CVA (cerebral vascular accident) Current visit: Yes Status: Acute (2) Left hemiparesis Current visit: Yes Status: Acute Assessment and Plan: Impression: Large right MCA stroke (05/11/17) Left hemiparesis Dysphagia, resolved Paroxysmal Atrial Fib Chronic anticoagulation on Warfarin HTN LUCIE Anemia, ARMANDO, B12 deficiency Plan: 09/14/2017 Agree with IRU admission for further therapy. Patient is very motivated to return to walking and self care. Continue ASA, Warfarin due to atrial fib-chronic. Metoprolol for HTN and weight control. Continue CPAP for LUCIE. s/p PEG tube removal, dysphagia has resolved. Continue oral supplements for anemia, and repeat baseline labs in AM. Continue supportive care. If additional support at home is needed, may be able to refer to [facility] for 's benefits as he served in the [facility] [place]. Thank you for the consult. We will follow this pt with you. DVT Prophylaxis: Coumadin GI Prophylaxis: Protonix Resuscitation Status: Full Code - Physician Narrative Physician: Bertha Lopez MD Narrative: Date: 09/14/17 Time: 2049 I have independently evaluated and examined this patient. I reviewed the chart, the patient's history, and the [employer]/PA's documented findings as above. We discussed and formulated the assessment and plan as above with additions as below: Mr. Lee was seen earlier this evening. He was resting comfortably in bed and indicated that he has been able to pivot transfer recently but has not been able to walk since his stroke. In the recent past he's had return of some functional use of his left leg and can now raise it off the bed resulting in hope that further functional return and potentially ambulation can be restored. Patient denied pain or loss of sensation on the left. NAD Respirations nonlabored, anterior breath sounds clear Regular rhythm, S1-S2 Slight left facial droop Very weak left shoulder shrug present but no power evident left hand or forearm left dorsiflexion/plantar flexion graded 4/5, able to lift left leg off the bed but cannot hold up against resistance Sensation intact to light touch symmetrically right/left INR 4.34 Aggressive PT/OT to restore function; high-risk medications in use-pharmacy to assist in management of warfarin dosing. Warfarin on hold due to elevated INR. Blood pressure stable. Hospital Course Summary Disclaimer: The visit summary below is not to be considered part of the above Progress Note. 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 Patient is very motivated to return to walking and self care. Continue ASA, Warfarin due to atrial fib-chronic. Metoprolol for HTN and weight control. Continue CPAP for LUCIE. s/p PEG tube removal, dysphagia has resolved. Continue oral supplements for anemia, and repeat baseline labs in AM. Continue supportive care. If additional support at home is needed, may be able to refer to [facility] for 's benefits as he served in the [facility]. Thank you for the consult. We will follow this pt with you. Addendum entered and electronically signed by Simona Noel APRN 09/14/17 16:16 : Gastric ulcers on EGD when PEG placed. Continue PPI for GI healing and protection due to chronic warfarin need.
[2017-09-14] MEDS ORDERED: WARFARIN - PHARMACY CONSULT MC ONE (16:17)
[2017-09-14] MEDS: GABAPENTIN 300 MG CAPSULE PO SCH ×2 (16:32→21:43)
[2017-09-14] MEDS ORDERED: WARFARIN 5 MG TABLET PO SCH (17:00)
[2017-09-14] MEDS: ATORVASTATIN 20 MG TABLET PO SCH (21:43)
[2017-09-14] MEDS: MELATONIN 1 MG TABLET PO PRN (21:43)
[2017-09-14] MEDS: TRAZODONE 50 MG TABLET PO SCH (21:43)
[2017-09-14] MEDS: CIPROFLOXACIN 500 MG TABLET PO SCH (22:24)
[2017-09-15] MEDS: PANTOPRAZOLE 40 MG TABLET PO SCH (06:11)
[2017-09-15] MEDS: CYANOCOBALAMIN (B-12) 500mcg TABLET PO SCH (08:43)
[2017-09-15] MEDS: ASPIRIN 81 MG CHEWABLE TABLET PO SCH (08:44)
[2017-09-15] MEDS: FERROUS GLUCONATE 324 MG TABLET PO SCH (08:44)
[2017-09-15] MEDS: GABAPENTIN 300 MG CAPSULE PO SCH ×3 (08:44→21:51)
[2017-09-15] MEDS: CIPROFLOXACIN 500 MG TABLET PO SCH ×2 (08:50→21:51)
[2017-09-15] MEDS: MELATONIN 1 MG TABLET PO PRN (21:51)
[2017-09-15] MEDS: ATORVASTATIN 20 MG TABLET PO SCH (21:51)
[2017-09-15] MEDS: TRAZODONE 50 MG TABLET PO SCH (21:51)
[2017-09-16] MEDS: PANTOPRAZOLE 40 MG TABLET PO SCH (06:30)
[2017-09-16] MEDS: CYANOCOBALAMIN (B-12) 500mcg TABLET PO SCH (09:28)
[2017-09-16] MEDS: GABAPENTIN 300 MG CAPSULE PO SCH ×3 (09:28→21:50)
[2017-09-16] MEDS: ASPIRIN 81 MG CHEWABLE TABLET PO SCH (09:28)
[2017-09-16] MEDS: CIPROFLOXACIN 500 MG TABLET PO SCH (09:29)
[2017-09-16] MEDS: FERROUS GLUCONATE 324 MG TABLET PO SCH (09:29)
[2017-09-16] MEDS ORDERED: WARFARIN - PHARMACY CONSULT MC ONE (13:03)
--- NOTE | 2017-09-16 13:38 | Pharmacy Consult ---
Pharmacy Consult-Warfarin - Laboratory Information 09/14/17 09/15/17 09/15/17 13:31 04:10 04:10 Hgb 9.8 L Hct 31.4 L INR 4.34 H 4.17 H 09/16/17 11:22 Hgb Hct INR 2.69 H - Consult Information Warfarin consult noted by Dr. Lopez for Mr Lee. Dx is chronic afib. Target INR is 2-3. Warfarin 4mg is ordered for today. Will continue to follow. Thank you.
[2017-09-16] MEDS: NYSTATIN TP SCH ×3 (13:45→21:51)
[2017-09-16] MEDS: TRIAMCINOLONE TP SCH ×3 (13:45→21:51)
[2017-09-16] MEDS ORDERED: WARFARIN 4 MG TABLET PO ONE (14:00)
[2017-09-16] MEDS: TRAZODONE 50 MG TABLET PO SCH (21:50)
[2017-09-16] MEDS: ATORVASTATIN 20 MG TABLET PO SCH (21:51)
[2017-09-17] MEDS: PANTOPRAZOLE 40 MG TABLET PO SCH ×2 (04:42→08:28)
--- NOTE | 2017-09-17 07:52 | Pharmacy Consult ---
Pharmacy Consult-Warfarin - Laboratory Information 09/14/17 09/15/17 09/15/17 13:31 04:10 04:10 Hgb 9.8 L Hct 31.4 L INR 4.34 H 4.17 H 09/16/17 09/17/17 11:22 04:48 Hgb Hct INR 2.69 H 2.13 H - Consult Information 67 y.o. M with history of a.fib and chronic anticoagulation with warfarin. Home warfarin dose= 5 mg po daily. goal INR range= 2.0 to 3.0 INR was supratherapeutic on admission, no dose given 09/14 and 09/15 date INR dose 09/14 4.34 no dose 09/15 4. no dose 09/16 2.69 4 mg 09/17 2.13 plan: 4 mg INR is in therapeutic range. Due to high INR on admission will give a dose of Warfarin 4 mg po x 1 dose this is less than home dose. Potential drug-drug interaction exists between Cephalexin and Warfarin. This may increase INR and risk of bleeding. Pharmacy will monitor and adjust as needed. Thank you, Odalys Rousseau [facility]
[2017-09-17] MEDS: FERROUS GLUCONATE 324 MG TABLET PO SCH (08:29)
[2017-09-17] MEDS: ASPIRIN 81 MG CHEWABLE TABLET PO SCH (08:29)
[2017-09-17] MEDS: GABAPENTIN 300 MG CAPSULE PO SCH ×3 (08:30→21:00)
[2017-09-17] MEDS: CYANOCOBALAMIN (B-12) 500mcg TABLET PO SCH (08:30)
[2017-09-17] MEDS: TRIAMCINOLONE TP SCH ×4 (10:45→21:00)
[2017-09-17] MEDS: NYSTATIN TP SCH ×4 (10:45→21:00)
--- NOTE | 2017-09-17 12:00 | IRU Plan of Care ---
U Overall Plan of Care - Date Date: 09/17/17 - Patient Impairments (1) CVA (cerebral vascular accident) Qualifiers: CVA mechanism: embolism Precerebral and cerebral artery: middle cerebral artery Laterality of affected vessel: right Qualified Code(s): I63.411 - Cerebral infarction due to embolism of right middle cerebral artery Code(s): I63.9 - Cerebral infarction, unspecified Status: Acute Classification: Present on IRF Admission, IRF Tx That Should Address Diagnosis, Diagnosis Requiring Medical Follow Up (2) Left hemiparesis Code(s): G81.94 - Hemiplegia, unspecified affecting left nondominant side Status: Acute Classification: Present on IRF Admission, IRF Tx That Should Address Diagnosis, Diagnosis Requiring Medical Follow Up (3) Paroxysmal atrial fibrillation Code(s): I48.0 - Paroxysmal atrial fibrillation Status: Acute Classification: Present on IRF Admission, IRF Tx That Should Address Diagnosis, Diagnosis Requiring Medical Follow Up (4) Hypertension Qualifiers: Hypertension type: essential hypertension Qualified Code(s): I10 - Essential (primary) hypertension Code(s): I10 - Essential (primary) hypertension Status: Chronic Classification: Present on IRF Admission, IRF Tx That Should Address Diagnosis, Diagnosis Requiring Medical Follow Up (5) Obstructive sleep apnea Code(s): G47.33 - Obstructive sleep apnea (adult) (pediatric) Status: Chronic Classification: Present on IRF Admission, Diagnosis Requiring Medical Follow Up - Relevant Changes Relevant Changes: No Reviewed: I have reviewed the patient's information and concur with the finding and results of the pre-admission screen. Certification: I certify the patient for rehabilitation. - Medical Prognosis Medical Prognosis: Good Vital Signs: Last Vital Signs Temp 98.0 F 09/17/17 07:24 Pulse 75 09/17/17 07:24 Resp 20 09/17/17 07:24 BP 127/69 09/17/17 07:24 Pulse Ox 94 09/17/17 07:24 - Anticipated Interventions Anticipated Interventions: The patient requires inpatient IRF care for PT, OT, and/or ST for residuals remaining from right hemispheric CVA resulting in muscular weakness and strength deficits. Strength Deficits: Left Upper Extremity, Left Lower Extremity - Current Functional Status Failed Alternative Therapy: Arrived from Acute Care Patient Requires: The patient requires oversight by rehabilitation physician to manage their rehabilitation treatment plan and multidisciplinary approach to care that can only be provided in an IRF and requires a multidisciplinary approach to care, provided by professional PTs, OTs, STs, rehabilitation nurses, and may require STs, dieticians, and RTS. This is not available in lesser levels of care. Physical Therapy Minutes: 90 Occupational Therapy Minutes: 90 Therapy: The patient is to receive therapy at least [address] Treatment Plan: Evaluation Only ST Treatment Plan Duration: N/A ST Treatment Plan Frequency: N/A - Anticipated LOS/Outcomes Anticipated Functional Outcome: It is anticipated the patient will able to return to return to his home with his 's assistance. He will continue to require assistance with ADLs but will be able to perform most of his own care with minimal assistance. Expected functional improvements include: -- Modified independant to independant ambulation with or without assistive device -- Modified independant to independant ADL's with or without assistive device -- Return to pre-morbid level of mobility -- Maximize level of mobility and ADL's to decrease burden on any caregiver involved with this patient's care Anticipated Length of Stay (days): 7 Anticipated DC Destination: Home Health Service Home Safety Plan: The patient will be provided with the development of a Home Safety Plan for return to a home or home-like environment and and to ensure safety post discharge. - Plan to Avoid Complications Barriers to Attaining Goals: Weakness, Endurance Plan to Avoid Complications: The patient cannot receive this care in a lesser intensive setting such as Detention or Outpatient Therapy due to the patient requiring the following : This patient has paroxysmal atrial fibrillation and requires close monitoring of his INR and warfarin dosing. He has a history of anemia, obstructive sleep apnea and nocturnal hypoxemia. He has a history of hypertension. He has a recent stroke in May resulting in multiple functional deficits. Because of these multiple medical problems he requires a multidisciplinary approach with PT , OT and medical supervision along with 24 hour rehabilitation nursing monitoring and treatment.
[2017-09-17] MEDS: DOCUSATE SODIUM 100 MG CAPSULE PO SCH (12:42)
[2017-09-17] MEDS: POLYETHYL GLYCOL 3350 17gm PACKET PO SCH (12:42)
--- NOTE | 2017-09-17 13:12 | Progress Note ---
- Date 09/17/17 Subjective: Junior was watching TV in his room. He was sitting in his wheelchair. His left arm was in a sling. He reports that he sometimes has pain with urination and sometimes he cannot empty his bladder. He denies chest pain, dyspnea, abdominal pain or GI complaints. Objective Vital signs: Temperature 98.0 F 09/17/17 07:24 Pulse Rate 75 09/17/17 07:24 Respiratory Rate 20 09/17/17 07:24 Blood Pressure 127/69 09/17/17 07:24 Pulse Oximetry 94 09/17/17 07:24 Height/Weight/BMI: Height 1.88 m Weight 133 kg Body Mass Index 37.6 - Constitutional Present: no acute distress, well nourished, well developed, obese - Routine HEENT Exam Head: Present: normocephalic Eye: Present: PERRL. Absent: conjunctival icterus, scleral injection ENT: Present: mucous membranes moist - Routine Respiratory Exam Present: CTA bilaterally - Routine Cardiovascular Exam Present: RRR, S1, S2 - Routine Abdominal Exam Present: soft, normoactive bowel sounds, non distended, non tender - Routine Extremities Exam Present: edema (trace) - Routine Musculoskeletal Exam Musculoskeletal: Present: other (left arm in sling) - Routine Skin Exam Present: intact, dry, warm - Routine Neurological Exam Present: alert, motor deficit (LUE, LLE), facial asymmetry (left facial droop) - Routine Psychiatric Exam Present: normal affect, normal thought process, cooperative Results - Labs CBC & Chem 7: 09/15/17 04:10 09/15/17 04:10 Microbiology Results: Microbiology 09/14/17 16:16 Urine, Voided (Cc/notcc) Urine Culture - Final Escherichia coli Assessment and Plan (1) Left hemiparesis Current visit: Yes Status: Acute (2) CVA (cerebral vascular accident) Current visit: Yes Status: Acute Assessment and Plan: Impression: E. coli UTI Large right MCA stroke (05/11/17) Left hemiparesis Dysphagia, resolved Paroxysmal Atrial Fib Chronic anticoagulation on Warfarin HTN LUCIE Anemia, ARMANDO, B12 deficiency Plan: 09/17/2017 E. coli UTI. Continue Keflex (started 09/16/17). Sensitivities reviewed. INR therapeutic. BP under good control. Medically stable given significant comorbidities. DVT Prophylaxis: Coumadin GI Prophylaxis: Protonix Resuscitation Status: Full Code - Physician Narrative Narrative: Date: 09/17/17 Time: 1309 Hospital Course Summary Disclaimer: The visit summary below is not to be considered part of the above Progress Note. 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 Patient is very motivated to return to walking and self care. Continue ASA, Warfarin due to atrial fib-chronic. Metoprolol for HTN and weight control. Continue CPAP for LUCIE. s/p PEG tube removal, dysphagia has resolved. Continue oral supplements for anemia, and repeat baseline labs in AM. Continue supportive care. If additional support at home is needed, may be able to refer to [facility] for 's benefits as he served in the [employer] [facility] [facility] [place] [place]. Thank you for the consult. We will follow this pt with you. 09/17/2017 E. coli UTI. Continue Keflex (started 09/16/17). Sensitivities reviewed. INR therapeutic. BP under good control.
--- NOTE | 2017-09-17 14:57 | IRU Progress Note ---
- Subjective/Serverity of Illness Date: 09/17/17 Junior was interviewed in his room on inpatient rehabilitation. He is cooperative. He is anxious to get back home and get back to working at [employer]. Unfortunately has a dense left hemiparesis. Has no movement in the left upper extremity. He denies any chest pain and denies any shortness of breath. We did discuss his obstructive sleep apnea. He has used a nasal CPAP in the past but has declined to use it since because of claustrophobia. Unfortunately overnight oximetry does demonstrate presence of significant hypoxia. The patient does have atrial fibrillation and is recently placed on warfarin. Junior does complain of constipation with no stool for the past 5 days according to his report. Update on medical issues were actively monitoring and managing as follows: 1. Acute right hemispheric CVA affecting the left side with a dense left hemiparesis: There've been no new neurologic changes identified. He is cooperative with therapy. 2. Hypertension: Controlled at present 3. Atrial fibrillation: He is on warfarin with a therapeutic INR managed by pharmacy 4. Obstructive sleep apnea with nocturnal hypoxemia: Patient refuses to use nasal CPAP. He may require repeat overnight oximetry and use of oxygen at night at least. 5. Morbid obesity 6. Constipation Exam Vital Signs: Temperature 98.0 F 09/17/17 07:24 Pulse Rate 75 09/17/17 07:24 Respiratory Rate 20 09/17/17 07:24 Blood Pressure 127/69 09/17/17 07:24 Pulse Oximetry 94 09/17/17 07:24 Height/Weight/BMI: Height 1.88 m Weight 133 kg Body Mass Index 37.6 - Constitutional Present: no acute distress, well nourished, well developed, obese, cooperative - Routine HEENT Exam Head: Present: normocephalic Eye: Present: EOMI ENT: Present: mucous membranes moist, oropharynx clear - Routine Neck Exam Present: supple - Routine Respiratory Exam Present: decreased breath sounds, CTA bilaterally. Absent: wheezes, crackles - Routine Cardiovascular Exam Present: S1, S2, irregularly irregular. Absent: murmur - Routine Abdominal Exam Present: soft, normoactive bowel sounds, non distended. Absent: tenderness - Routine Extremities Exam Present: no edema, normal capillary refill - Routine Skin Exam Present: dry, warm - Routine Neurological Exam Present: alert, oriented X3, motor deficit (dense left hemiparesis), facial asymmetry. Absent: CN II-XII intact - Routine Psychiatric Exam Present: normal affect, cooperative Results IRU - Labs Labs: I reviewed other providers notes as well as laboratory findings etc. IRU A/P (1) CVA (cerebral vascular accident) Qualifiers: CVA mechanism: embolism Precerebral and cerebral artery: middle cerebral artery Laterality of affected vessel: right Qualified Code(s): I63.411 - Cerebral infarction due to embolism of right middle cerebral artery Current visit: Yes Status: Acute He has sustained significant left hemiparesis. He is cooperative with therapy. (2) Left hemiparesis Current visit: Yes Status: Acute (3) Paroxysmal atrial fibrillation Current visit: Yes Status: Acute He remains on warfarin at the present time. His INR is therapeutic. No evidence of bleeding. (4) Hypertension Qualifiers: Hypertension type: essential hypertension Qualified Code(s): I10 - Essential (primary) hypertension Current visit: Yes Status: Chronic Blood pressures appear to be adequately controlled. (5) Obstructive sleep apnea Current visit: Yes Status: Chronic He does have history of nocturnal hypoxemia. Patient refuses to use nasal CPAP. He may well require oxygen at home at night. DVT Prophylaxis: Coumadin Resuscitation Status: Full Code - Course Hospital Course: Erik Shaw MD: 09/17/17 14:58 Cooperative with therapy. Declines to use nasal CPAP. Blood pressures are controlled. Constipated. - Interventions to Obtain Goals PT Treatment Plan: Balance/Proprioception, Functional Activities, Gait Training , Patient/Family Education, Therapeutic Exercise OT Treatment Plan: ADL (Basic Care), Balance Training, Pt./Family Education, Ther. Exercise for ADL Goals Progress/Modifications: Junior is cooperative with therapy. We will add on MiraLAX for his constipation. He does have evidence of significant left hemiparesis. His blood pressures are well controlled. He is on warfarin which is a new medication for him over the last several weeks. His INR is therapeutic and there is no evidence of active bleeding. Continue working with him with PT and OT.
[2017-09-17] MEDS: ATORVASTATIN 20 MG TABLET PO SCH (21:00)
[2017-09-17] MEDS: TRAZODONE 50 MG TABLET PO SCH (21:00)
[2017-09-18] MEDS: PANTOPRAZOLE 40 MG TABLET PO SCH (06:10)
[2017-09-18] MEDS: FERROUS GLUCONATE 324 MG TABLET PO SCH (09:39)
[2017-09-18] MEDS: ASPIRIN 81 MG CHEWABLE TABLET PO SCH (09:39)
[2017-09-18] MEDS: CYANOCOBALAMIN (B-12) 500mcg TABLET PO SCH (09:40)
[2017-09-18] MEDS: DOCUSATE SODIUM 100 MG CAPSULE PO SCH (09:40)
[2017-09-18] MEDS: GABAPENTIN 300 MG CAPSULE PO SCH ×3 (09:41→22:38)
[2017-09-18] MEDS: NYSTATIN TP SCH ×4 (09:41→22:39)
[2017-09-18] MEDS: POLYETHYL GLYCOL 3350 17gm PACKET PO SCH (09:41)
[2017-09-18] MEDS: TRIAMCINOLONE TP SCH ×4 (09:41→22:39)
[2017-09-18] MEDS: BISACODYL 10 MG SUPPOSITORY RECTALLY PRN ×2 (09:57→14:31)
--- NOTE | 2017-09-18 11:14 | Pharmacy Consult ---
Pharmacy Consult-Warfarin - Laboratory Information 09/16/17 09/17/17 09/18/17 11:22 04:48 04:14 Hgb Hct INR 2.69 H 2.13 H 1.97 H - Consult Information Day 3 67 y.o. M with history of a.fib and chronic anticoagulation with warfarin. Home warfarin dose= 5 mg p o daily. goal INR range= 2.0 to 3.0 INR was supratherapeutic on admission, no dose given 09/14 and 09/15 date INR dose 09/14 4.34 no dose 09/15 4. no dose 09/16 2.69 4 mg 09/17 2.13 4 mg 09/18 1.97 5 mg INR is in subtherapeutic range. Due to the drop in INR, I ordered a dose of Warfarin 5 mg p o x 1 dose get him over the 2.00 range. Potential drug-drug interaction exists between Cephalexin and Warfarin. This may increase INR and risk of bleeding. It appears that the interaction is no effecting the INR at this time. The Pharmacy will monitor and adjust the Warfarin as needed. Thanks, Ez Simon, Pharmacist
[2017-09-18] MEDS ORDERED: WARFARIN 5 MG TABLET PO SCH (12:00)
--- NOTE | 2017-09-18 12:38 | IRU Progress Note ---
- Subjective/Serverity of Illness Date: 09/18/17 Junior was reassessed in his room on inpatient rehabilitation. He states that he is doing well and slept well until he got a blood draw this morning. He denies any chest pain or shortness of breath. Bowels continue to be sluggish he states. Upon exam, he is able to lift the left leg up off the bed to some degree but not against resistance. Left arm appears to be fairly flaccid. With regard to therapy, his flaccid left arm continues to be an issue. He requires moderate assistance for upper body dressing and maximum assistance for lower body dressing. Exam Vital Signs: Temperature 98.2 F 09/18/17 08:00 Pulse Rate 82 09/18/17 08:00 Respiratory Rate 18 09/18/17 08:00 Blood Pressure 115/78 09/18/17 08:00 Pulse Oximetry 91 09/18/17 08:00 Height/Weight/BMI: Height 1.88 m Weight 133 kg Body Mass Index 37.6 - Constitutional Present: well nourished, well developed, obese - Routine HEENT Exam Head: Present: normocephalic Eye: Present: EOMI ENT: Present: mucous membranes moist, oropharynx clear - Routine Neck Exam Present: supple - Routine Respiratory Exam Present: CTA bilaterally. Absent: wheezes - Routine Cardiovascular Exam Present: S1, S2, irregularly irregular. Absent: murmur - Routine Abdominal Exam Present: soft, normoactive bowel sounds, non distended. Absent: tenderness - Routine Extremities Exam Present: no edema, normal capillary refill - Routine Skin Exam Present: dry, warm - Routine Neurological Exam Present: alert, oriented X3, CN II-XII intact, motor deficit (left arm fairly flaccid. Is able to lift up her left leg off the bed about 6 inches but not much against resistance.) - Routine Psychiatric Exam Present: normal affect Results IRU - Labs Labs: Labs and other chart data reviewed. INR slightly subtherapeutic today. IRU A/P (1) CVA (cerebral vascular accident) Qualifiers: CVA mechanism: embolism Precerebral and cerebral artery: middle cerebral artery Laterality of affected vessel: right Qualified Code(s): I63.411 - Cerebral infarction due to embolism of right middle cerebral artery Current visit: Yes Status: Acute Primary deficit continues to be the left upper extremity. Left lower extremity is weak but able to move it. No new neurologic events. Remains on warfarin. Management per pharmacy. (2) Left hemiparesis Current visit: Yes Status: Acute (3) Paroxysmal atrial fibrillation Current visit: Yes Status: Acute Continues to appear to be in atrial fibrillation with controlled ventricular response. (4) Hypertension Qualifiers: Hypertension type: essential hypertension Qualified Code(s): I10 - Essential (primary) hypertension Current visit: Yes Status: Chronic (5) Obstructive sleep apnea Current visit: Yes Status: Chronic DVT Prophylaxis: Coumadin Resuscitation Status: Full Code - Course Hospital Course: Erik Shaw MD: 09/17/17 14:58 Cooperative with therapy. Declines to use nasal CPAP. Blood pressures are controlled. Constipated. 09/18/17 12:38 Slow progress with therapy. Blood pressures look good. Continues to be constipated. - Interventions to Obtain Goals PT Treatment Plan: Balance/Proprioception, Functional Activities, Gait Training , Patient/Family Education, Therapeutic Exercise OT Treatment Plan: ADL (Basic Care), Balance Training, Pt./Family Education, Ther. Exercise for ADL
[2017-09-18] MEDS ORDERED: BENZOCAINE 20% HEMORRHOIDAL OINT 28 GM TOP PRN (16:14)
[2017-09-18] MEDS: TRAZODONE 50 MG TABLET PO SCH (22:38)
[2017-09-18] MEDS: ATORVASTATIN 20 MG TABLET PO SCH (22:38)
[2017-09-19] MEDS: PANTOPRAZOLE 40 MG TABLET PO SCH (06:21)
[2017-09-19] MEDS: DOCUSATE SODIUM 100 MG CAPSULE PO SCH (08:30)
[2017-09-19] MEDS: CYANOCOBALAMIN (B-12) 500mcg TABLET PO SCH (08:30)
[2017-09-19] MEDS: ASPIRIN 81 MG CHEWABLE TABLET PO SCH (08:30)
[2017-09-19] MEDS: FERROUS GLUCONATE 324 MG TABLET PO SCH (08:31)
[2017-09-19] MEDS: GABAPENTIN 300 MG CAPSULE PO SCH ×3 (08:31→20:13)
[2017-09-19] MEDS: POLYETHYL GLYCOL 3350 17gm PACKET PO SCH (08:31)
--- NOTE | 2017-09-19 09:13 | Pharmacy Consult ---
Pharmacy Consult-Warfarin - Laboratory Information 09/14/17 09/15/17 09/15/17 13:31 04:10 04:10 Hgb 9.8 L Hct 31.4 L INR 4.34 H 4.17 H 09/16/17 09/17/17 09/18/17 11:22 04:48 04:14 Hgb Hct INR 2.69 H 2.13 H 1.97 H 09/19/17 09/19/17 05:13 05:13 Hgb 10.4 L Hct 33.1 L INR 1.84 H - Consult Information COUMADIN CONSULT (Recurring): 67 yr old male admitted to IRU on warfarin 5 mg daily at home for A.Fib. Patient's INR was elevated at admit. Patient currently on Cephalexin for UTI. Date INR Dose 09/15/17 4.17 None 09/16/17 2.69 4 mg 09/17/17 2.13 4 mg 09/18/17 1.97 5 mg 09/19/17 1.84 Will give 6 mg warfarin today. Pharmacy will continue to monitor the INR and adjust the warfarin dose. Thank you. Sarah Garcia, PharmD
[2017-09-19] MEDS: TRIAMCINOLONE TP SCH ×4 (09:30→20:13)
[2017-09-19] MEDS: NYSTATIN TP SCH ×4 (09:30→20:13)
[2017-09-19] MEDS ORDERED: WARFARIN 6 MG TABLET PO SCH (12:00)
[2017-09-19] MEDS ORDERED: WARFARIN 5 MG TABLET PO SCH (12:00)
--- NOTE | 2017-09-19 15:49 | Progress Note ---
- Date 09/19/17 Subjective: Patient is seen resting in his room this afternoon. Nursing staff asked that I visit him as he has been tearful and sad the past few days. He reports he misses being in [place] (he was there for rehab since his stroke in May.) His son and don't visit him as much here in [place] since they live in [place]. He states he has had some feelings of depression when he was in [place] but has felt more sad over the past few days being here. He has not had tx for depression in the past. He is not suicidal. He states he has some pain in the L arm/shoulder. He reports he had a [place] the [place] previously and thinks he may have injured it then. He is on Keflex for a UTI. Has no urinary sxs at this time. Objective Vital signs: Temperature 97.2 F 09/19/17 08:00 Pulse Rate 79 09/19/17 08:00 Respiratory Rate 20 09/19/17 08:00 Blood Pressure 139/66 09/19/17 08:00 Pulse Oximetry 97 09/19/17 08:00 Height/Weight/BMI: Height 1.88 m Weight 133 kg Body Mass Index 37.6 - Constitutional Present: no acute distress, well nourished, well developed Comments: tearful at times - Routine HEENT Exam Head: Present: normocephalic, atraumatic - Routine Respiratory Exam Present: CTA bilaterally. Absent: wheezes - Routine Cardiovascular Exam Present: no murmur, irregular rhythm - Routine Abdominal Exam Present: soft, non distended, non tender - Routine Extremities Exam Present: no edema, normal capillary refill Comments: L arm in a sling. Compression glove on the L hand. (L arm is mostly flaccid as result of prior stroke.) - Routine Skin Exam Present: dry, warm - Routine Neurological Exam Present: alert, oriented X3 - Routine Lymphatic Exam Lymphatic: Absent: adenopathy - Routine Psychiatric Exam Present: cooperative, depressed Results - Labs CBC & Chem 7: 09/19/17 05:13 09/15/17 04:10 Microbiology Results: Microbiology 09/14/17 16:16 Urine, Voided (Cc/notcc) Urine Culture - Final Escherichia coli - ABG Interpretation Interpretation: venous blood gas Assessment and Plan (1) Left hemiparesis Current visit: Yes Status: Acute (2) CVA (cerebral vascular accident) Current visit: Yes Status: Acute Assessment and Plan: Impression: E. coli UTI Situational depression L shoulder/arm pain - 09/19/17 Large right MCA stroke (05/11/17) Left hemiparesis Dysphagia, resolved Paroxysmal Atrial Fib Chronic anticoagulation on Warfarin HTN LUCIE Anemia, ARMANDO, B12 deficiency Plan: On day #4 of cephalexin for UTI. No sxs. Pharmacy following INR/coumadin dosing. Slightly subtherapeutic today- 1.84. Pt is willing to try an antidepressant. As he hasn't had much of an appetite, will start mirtazapine. Suspect large part of his current sxs is r/t fact that he isn't spending as much time with family and has less social interaction that what he was accustomed to. PRN Tylenol ordered for his L shoulder/arm pain. Will wait on imaging as pt has had no known injury since arriving here and today is first complaint of pain from what I can tell. If he consistently complains of pain, would go ahead with imaging. Vitals stable. Labs reviewed. - Physician Narrative Narrative: Date: 09/19/17 Time: 1544 Hospital Course Summary Disclaimer: The visit summary below is not to be considered part of the above Progress Note. 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 Patient is very motivated to return to walking and self care. Continue ASA, Warfarin due to atrial fib-chronic. Metoprolol for HTN and weight control. Continue CPAP for LUCIE. s/p PEG tube removal, dysphagia has resolved. Continue oral supplements for anemia, and repeat baseline labs in AM. Continue supportive care. If additional support at home is needed, may be able to refer to [facility] for 's benefits as he served in the [employer] [facility] [facility] [place]. Thank you for the consult. We will follow this pt with you. 09/17/2017 E. coli UTI. Continue Keflex (started 09/16/17). Sensitivities reviewed. INR therapeutic. BP under good control. 09/19/17 On day #4 of cephalexin for UTI. No sxs. Start mirtazapine for situational depression. Tylenol PRN for L shoulder/arm pain. If consistently complains, proceed with imaging.
[2017-09-19] MEDS: ATORVASTATIN 20 MG TABLET PO SCH (20:12)
[2017-09-19] MEDS: TRAZODONE 50 MG TABLET PO SCH (20:13)
[2017-09-19] MEDS: MIRTAZAPINE 15 MG TABLET PO SCH (20:13)
[2017-09-20] MEDS: PANTOPRAZOLE 40 MG TABLET PO SCH (06:25)
--- NOTE | 2017-09-20 07:52 | Pharmacy Consult ---
Pharmacy Consult-Warfarin - Laboratory Information 09/19/17 09/19/17 09/20/17 05:13 05:13 04:07 Hgb 10.4 L Hct 33.1 L INR 1.84 H 2.07 H - Consult Information Day 5 67 y.o. M with history of a.fib and chronic anticoagulation with warfarin. Home warfarin dose= 5 mg p o daily. goal INR range= 2.0 to 3.0 INR was supratherapeutic on admission, no dose given 09/14 and 09/15 date INR dose 09/14 4.34 no dose 09/15 4. no dose 09/16 2.69 4 mg 09/17 2.13 4 mg 09/18 1.97 5 mg 09/19 1.84 6 mg 09/20 2.07 6 mg INR is in therapeutic range. Due to the drop in INR, I ordered a dose of Warfarin 6 mg p o x 1 dose keep him over the 2.00 range. Potential drug-drug interaction exists between Cephalexin and Warfarin. This may increase INR and risk of bleeding. It appears that the interaction is no effecting the INR at this time. The Pharmacy will monitor and adjust the Warfarin as needed. Thanks, Ez Simon, Pharmacist
[2017-09-20] MEDS: ASPIRIN 81 MG CHEWABLE TABLET PO SCH (09:26)
[2017-09-20] MEDS: CYANOCOBALAMIN (B-12) 500mcg TABLET PO SCH (09:27)
[2017-09-20] MEDS: FERROUS GLUCONATE 324 MG TABLET PO SCH (09:27)
[2017-09-20] MEDS: GABAPENTIN 300 MG CAPSULE PO SCH ×3 (09:27→20:32)
[2017-09-20] MEDS: DOCUSATE SODIUM 100 MG CAPSULE PO SCH (09:27)
[2017-09-20] MEDS: TRIAMCINOLONE TP SCH ×4 (09:28→20:33)
[2017-09-20] MEDS: NYSTATIN TP SCH ×4 (09:28→20:33)
[2017-09-20] MEDS: POLYETHYL GLYCOL 3350 17gm PACKET PO SCH (09:28)
--- NOTE | 2017-09-20 11:42 | IRU Progress Note ---
- Subjective/Serverity of Illness Date: 09/20/17 Junior was reassessed in his room today. I also visited with his therapist. He is making great strides with therapy. Previously upon admission he was able to ambulate 3 feet with assistance of 2 people. He is now up to 18 feet with 1 person maximum assist. He is transferring with maximum assistance. The patient is improving from a functional standpoint. The patient is having adequate bowel movements at the present time which is an improvement. He continues to have an irregular heartbeat consistent with atrial fibrillation. He is INR is now therapeutic at 2.07. With regard to his neurologic status the left lower extremity does have strength although reduced compared to the right. Left upper extremity appears to be fairly flaccid and he is wearing a sling in this regard. Has been noted to be more tearful. He is sad because his family is not visiting him as much here in [place]. He would like to be back home. He was seen by the hospitalist service and started on mirtazapine which should help his sleep as well as depression. Likely the depression is situational however. Exam Vital Signs: Temperature 97.4 F 09/20/17 08:00 Pulse Rate 91 09/20/17 08:00 Respiratory Rate 20 09/20/17 08:00 Blood Pressure 124/74 09/20/17 08:00 Pulse Oximetry 92 09/20/17 08:00 Height/Weight/BMI: Height 1.88 m Weight 133 kg Body Mass Index 37.6 - Constitutional Present: no acute distress, well nourished, well developed, cooperative - Routine HEENT Exam Head: Present: normocephalic Eye: Present: EOMI ENT: Present: mucous membranes moist, oropharynx clear - Routine Neck Exam Present: supple - Routine Respiratory Exam Present: CTA bilaterally. Absent: wheezes - Routine Cardiovascular Exam Present: S1, S2, irregularly irregular. Absent: murmur - Routine Abdominal Exam Present: soft, normoactive bowel sounds, non distended. Absent: tenderness - Routine Extremities Exam Present: no edema, normal capillary refill - Routine Skin Exam Present: dry, warm - Routine Neurological Exam Present: alert, oriented X3, CN II-XII intact, motor deficit (left upper extremity is flaccid. Left lower extremity is able to be lifted up off the bed against resistance although is weaker than the right side.) - Routine Psychiatric Exam Present: cooperative, depressed Results IRU - Labs Labs: I reviewed other providers notes as well as chart data. IRU A/P (1) CVA (cerebral vascular accident) Qualifiers: CVA mechanism: embolism Precerebral and cerebral artery: middle cerebral artery Laterality of affected vessel: right Qualified Code(s): I63.411 - Cerebral infarction due to embolism of right middle cerebral artery Current visit: Yes Status: Acute He remains neurologically stable. Functionally he is improving with regard ambulatory skills and transfers. (2) Left hemiparesis Current visit: Yes Status: Acute (3) Paroxysmal atrial fibrillation Current visit: Yes Status: Acute Appears to be in atrial fibrillation. Mental time. His INR is therapeutic. Management per pharmacy. (4) Hypertension Qualifiers: Hypertension type: essential hypertension Qualified Code(s): I10 - Essential (primary) hypertension Current visit: Yes Status: Chronic (5) Obstructive sleep apnea Current visit: Yes Status: Chronic (6) Situational depression Current visit: Yes Status: Acute Patient has been more tearful. He is not sleeping well. He has been started on mirtazapine. DVT Prophylaxis: Coumadin Resuscitation Status: Full Code - Course Hospital Course: Erik Shaw MD: 09/17/17 14:58 Cooperative with therapy. Declines to use nasal CPAP. Blood pressures are controlled. Constipated. 09/18/17 12:38 Slow progress with therapy. Blood pressures look good. Continues to be constipated. 09/20/17 11:42 Started on mirtazapine for depression and sleep. Blood pressure stable. He is having bowel movements. Making significant progress particular with PT. - Interventions to Obtain Goals PT Treatment Plan: Balance/Proprioception, Functional Activities, Gait Training , Patient/Family Education, Therapeutic Exercise OT Treatment Plan: ADL (Basic Care), Balance Training, Pt./Family Education, Ther. Exercise for ADL Goals Progress/Modifications: He appears to remain in atrial fibrillation. His INR is therapeutic. He was started on mirtazapine for sleep and situational depression. Patient was encouraged in this regard. He is finally having bowel movements. We are also encouraged by his progress with regard to transfers and ambulation in particular. His blood pressure remained stable. Neurologically he is unchanged.
[2017-09-20] MEDS ORDERED: WARFARIN 6 MG TABLET PO SCH (12:00)
--- NOTE | 2017-09-20 14:05 | IRU Team Meeting ---
IRU Team Meeting - Nursing Bladder Assistive Devices Utilized:: Absorbent Pad Bladder Management Level of Assist: Total Assistance Bladder Frequency of Accidents: No accidents Bowel Assistive Devices Utilized:: Medication, Absorbent Pad Bowel Management Level of Assist: Modified Independent Vital Signs: Vital Signs - 24 hr 09/19/17 16:00 09/19/17 21:59 09/20/17 08:00 Temperature 97.4 F 98.1 F 97.4 F Pulse Rate 76 81 91 Respiratory Rate 18 20 20 Blood Pressure 126/67 123/78 124/74 Pulse Oximetry 96 100 92 Current Medications: Acetaminophen (Tylenol) 650 mg PO Q5H PRN PRN Reason: Pain Albuterol Sulfate (Proventil Neb (0.083%)) 2.5 mg AEROSOL Q6H PRN PRN Reason: Shortness of air/wheezing Aspirin (Asa) 81 mg PO DAILY [facility] Last Admin: 09/20/17 09:26 Dose: 81 mg Atorvastatin Calcium (Lipitor) 20 mg PO HS [facility] Last Admin: 09/19/17 20:12 Dose: 20 mg Benzocaine (Preparation H) 1 applic TOP Q4H PRN PRN Reason: Hemorrhoids Bisacodyl (Dulcolax) 10 mg RECTALLY DAILY PRN PRN Reason: Constipation Last Admin: 09/18/17 14:31 Dose: 10 mg Cephalexin HCl (Keflex 500 Mg) 500 mg PO TID [facility] Stop: 09/21/17 14:59 Last Admin: 09/20/17 09:27 Dose: 500 mg Cyanocobalamin (Vit. B-12) 1,000 mcg PO DAILY [facility] Last Admin: 09/20/17 09:27 Dose: 1,000 mcg Docusate Sodium (Colace) 100 mg PO DAILY [facility] Last Admin: 09/20/17 09:27 Dose: 100 mg Ferrous Gluconate (Fergon) 324 mg PO WB [facility] Last Admin: 09/20/17 09:27 Dose: 324 mg Gabapentin (Neurontin) 300 mg PO TID [facility] Last Admin: 09/20/17 09:27 Dose: 300 mg Magnesium Hydroxide (Mom) 30 ml PO DAILY PRN PRN Reason: Constipation Last Admin: 09/18/17 09:57 Dose: 30 ml Melatonin (Melatonin) 3 mg PO HS PRN PRN Reason: Sleep Last Admin: 09/15/17 21:51 Dose: 3 mg Metoprolol Tartrate (Lopressor) 25 mg PO BIDWM [facility] Last Admin: 09/20/17 09:26 Dose: 25 mg Mirtazapine (Remeron) 15 mg PO HS [facility] Last Admin: 09/19/17 20:13 Dose: 15 mg Nystatin/Triamcinolone Acetonide (Mycolog Ii) 1 applic TP QID [facility] Last Admin: 09/20/17 13:26 Dose: 1 applic Pantoprazole Sodium (Protonix Tab) 40 mg PO ACB [facility] Last Admin: 09/20/17 06:25 Dose: 40 mg Polyethylene Glycol (Miralax) 17 gm PO DAILY [facility] Last Admin: 09/20/17 09:28 Dose: 17 gm Trazodone HCl (Desyrel) 50 mg PO HS [facility] Last Admin: 09/19/17 20:13 Dose: 50 mg Warfarin Sodium (Coumadin Protocol) 0 MC NOTE [facility] Warfarin Sodium (Coumadin) 6 mg PO NOON [facility] Stop: 09/20/17 23:59 Last Admin: 09/20/17 13:26 Dose: 6 mg Current Medical Issues: Status post acute CVA involving right MCA, paroxysmal atrial fibrillation, hypertension, UTI, urinary incontinence, 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 Team meeting was held in the patient's room with the patient and the following family members present: patient's Sheila and patient's son Mr. Lee has developed a spontaneous crying episodes. Discussion with family indicates this is happened since his stroke in May. 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 He has been started on mirtazapine however. He remains in atrial fibrillation with INR therapeutic. He does have a urinary tract infection and is currently on antibiotics in this regard. He remains with urinary incontinence. His blood pressure is adequately controlled. - Physical Therapy Bed, Chair, Wheelchair Transfer Assist: Maximal Assistance, 1 Person Assist Ambulation Ability: Total Assistance, 2 or More Person Assist Ambulation Distance: 18 Wheelchair Propulsion Ability: Modified Independent Wheelchair Propulsion Distance: 372 Stair Climbing Ability: Patient Unsafe/Unable Car Transfer Ability: Patient Unsafe/Unable Comments: Patient has demonstrated good progression toward ambulatory goals. He is able to ambulate over 18 feet with assistance of 1 person. Transfers are with maximum assistance. Does have bilateral lower extremity strength which is improving as evidenced by reduced frequency of rest breaks during lower extremity exercises. - Occupational Therapy Eating Ability: Stand By Assist/Supervision Grooming Ability: Maximal Assistance Bathing Ability: Moderate Assistance Upper Body Dressing Ability: Moderate Assistance Lower Body Dressing Ability: Maximal Assistance Tub Transfer Assist: Patient Unsafe/Unable Toileting Assist: Total Assistance Toilet Transfer Assist: Total Assistance, 2 or More Person Assist Comments: Patient has developed episodes of apparent depression/crying episodes. Does have increased tone in the left upper extremity. Requires moderate assistance for upper body dressing and maximal assistance for lower body dressing along with moderate assistance for bathing. Progress is noted. - Goals Physical Therapy Goals: 09/20/17 Goals: 1.) Ambulate 30 feet with moderate assistance. 2.) Transfers requiring moderate assistance. 3.) Static standing balance with no upper extremity support for 30 seconds. Occupational Therapy Goals: OT goals 09/20/17: 1.) Upper body dressing with supervision. 2.) Lower body dressing with minimal assistance. 3.) Toilet transfer with moderate assistance. - Barriers to Discharge Barriers to Attaining Goals: Balance (trending toward improving balance and proprioception is offered.), Other (reduced coordination: Exercises targeted at improving coordination are offered.) - Care Plan Anticipated Length of Stay (days): 10 Anticipated Length of Stay: Reassess in one week Anticipated DC Destination: Home, Self Care, Home Health Service I have led this team conference and agree with the plan. Interventions/Goals: Patient's family present with the patient during team meeting and questions were addressed. Patient's goal is to get home if at all possible. He is making progress and we will continue working with him with reassessment in 1 week.
[2017-09-20] MEDS: TRAZODONE 50 MG TABLET PO SCH (20:32)
[2017-09-20] MEDS: MIRTAZAPINE 15 MG TABLET PO SCH (20:32)
[2017-09-20] MEDS: ATORVASTATIN 20 MG TABLET PO SCH (20:32)
[2017-09-21] MEDS: PANTOPRAZOLE 40 MG TABLET PO SCH (05:54)
[2017-09-21] MEDS: CYANOCOBALAMIN (B-12) 500mcg TABLET PO SCH (08:41)
[2017-09-21] MEDS: DOCUSATE SODIUM 100 MG CAPSULE PO SCH (08:41)
[2017-09-21] MEDS: ASPIRIN 81 MG CHEWABLE TABLET PO SCH (08:41)
[2017-09-21] MEDS: FERROUS GLUCONATE 324 MG TABLET PO SCH (08:41)
[2017-09-21] MEDS: POLYETHYL GLYCOL 3350 17gm PACKET PO SCH (08:41)
[2017-09-21] MEDS: GABAPENTIN 300 MG CAPSULE PO SCH ×3 (08:41→21:58)
[2017-09-21] MEDS: NYSTATIN TP SCH ×4 (08:41→21:59)
[2017-09-21] MEDS: TRIAMCINOLONE TP SCH ×4 (08:41→21:59)
--- NOTE | 2017-09-21 09:45 | Pharmacy Consult ---
Pharmacy Consult-Warfarin - Laboratory Information 09/19/17 09/19/17 09/20/17 05:13 05:13 04:07 Hgb 10.4 L Hct 33.1 L INR 1.84 H 2.07 H 09/21/17 04:50 Hgb Hct INR 2.39 H - Consult Information Day 6 67 y.o. M with history of a.fib and chronic anticoagulation with warfarin. Home warfarin dose= 5 mg p o daily. goal INR range= 2.0 to 3.0 INR was supratherapeutic on admission, no dose given 09/14 and 09/15 date INR dose 09/14 4.34 no dose 09/15 4. no dose 09/16 2.69 4 mg 09/17 2.13 4 mg 09/18 1.97 5 mg 09/19 1.84 6 mg 09/20 2.07 6 mg 09/21 2.39 6 mg INR is in therapeutic range. I have ordered a dose of Warfarin 6 mg p o x 1 dose keep him over the 2.00 range. Potential drug-drug interaction exists between Cephalexin (although this should be discontinued today) and Warfarin. This may increase INR and risk of bleeding. It appears that the interaction is not effecting the INR at this time. The Pharmacy will monitor and adjust the Warfarin as needed. Thanks, Ez Simon, Pharmacist
--- NOTE | 2017-09-21 11:14 | IRU Progress Note ---
- Subjective/Serverity of Illness Date: 09/21/17 Junior was reassessed in his room on inpatient rehabilitation. He states that he continues to want to improve and get stronger. However, we discussed his going home. He does not want to go home. He wants to go back to "the rehabilitation center" in [place]. He is improving with therapy. His amplitude ability and transfer ability is improving. He is eating and drinking adequately. He remains in atrial fibrillation clinically. His INR is therapeutic. Exam Vital Signs: Temperature 97.8 F 09/21/17 08:00 Pulse Rate 80 09/21/17 08:00 Respiratory Rate 16 09/21/17 08:00 Blood Pressure 120/70 09/21/17 08:00 Pulse Oximetry 93 09/21/17 08:00 Height/Weight/BMI: Height 1.88 m Weight 133.8 kg Body Mass Index 37.6 - Constitutional Present: no acute distress, well nourished, well developed, obese, cooperative - Routine HEENT Exam Eye: Present: EOMI ENT: Present: mucous membranes moist - Routine Respiratory Exam Present: CTA bilaterally. Absent: wheezes - Routine Cardiovascular Exam Present: S1, S2, irregularly irregular. Absent: murmur - Routine Abdominal Exam Present: soft, normoactive bowel sounds, non distended. Absent: tenderness - Routine Extremities Exam Present: no edema, normal capillary refill - Routine Skin Exam Present: dry, warm - Routine Neurological Exam Present: alert, oriented X3, CN II-XII intact, motor deficit (left upper extremity does not move and has increased tone. Left lower extremity is weak but improving.) - Routine Psychiatric Exam Present: normal affect, cooperative IRU A/P (1) CVA (cerebral vascular accident) Qualifiers: CVA mechanism: embolism Precerebral and cerebral artery: middle cerebral artery Laterality of affected vessel: right Qualified Code(s): I63.411 - Cerebral infarction due to embolism of right middle cerebral artery Current visit: Yes Status: Acute Continues to demonstrate lack of movement in the left upper extremity with increased tone. Left lower extremity is moving better. (2) Left hemiparesis Current visit: Yes Status: Acute (3) Paroxysmal atrial fibrillation Current visit: Yes Status: Acute Remains in atrial fibrillation with therapeutic INR. (4) Hypertension Qualifiers: Hypertension type: essential hypertension Qualified Code(s): I10 - Essential (primary) hypertension Current visit: Yes Status: Chronic (5) Obstructive sleep apnea Current visit: Yes Status: Chronic (6) Situational depression Current visit: Yes Status: Acute DVT Prophylaxis: Coumadin Resuscitation Status: Full Code - Course Hospital Course: Erik Shaw MD: 09/17/17 14:58 Cooperative with therapy. Declines to use nasal CPAP. Blood pressures are controlled. Constipated. 09/18/17 12:38 Slow progress with therapy. Blood pressures look good. Continues to be constipated. 09/20/17 11:42 Started on mirtazapine for depression and sleep. Blood pressure stable. He is having bowel movements. Making significant progress particular with PT. 09/21/17 11:15 Patient states he wants to go back to rehabilitation in [place]. Blood pressures are stable. Improving with therapies. He is working hard. - Interventions to Obtain Goals PT Treatment Plan: Balance/Proprioception, Functional Activities, Gait Training , Patient/Family Education, Therapeutic Exercise OT Treatment Plan: ADL (Basic Care), Balance Training, Pt./Family Education, Ther. Exercise for ADL
[2017-09-21] MEDS ORDERED: WARFARIN 6 MG TABLET PO SCH (12:00)
[2017-09-21] MEDS: TRAZODONE 50 MG TABLET PO SCH (21:58)
[2017-09-21] MEDS: MIRTAZAPINE 15 MG TABLET PO SCH (21:58)
[2017-09-21] MEDS: ATORVASTATIN 20 MG TABLET PO SCH (21:58)
[2017-09-22] MEDS: PANTOPRAZOLE 40 MG TABLET PO SCH (05:43)
[2017-09-22] MEDS: ACETAMINOPHEN 325 MG TABLET PO PRN (05:44)
[2017-09-22] MEDS: GABAPENTIN 300 MG CAPSULE PO SCH ×3 (08:41→22:55)
[2017-09-22] MEDS: POLYETHYL GLYCOL 3350 17gm PACKET PO SCH (08:41)
[2017-09-22] MEDS: FERROUS GLUCONATE 324 MG TABLET PO SCH (08:41)
[2017-09-22] MEDS: CYANOCOBALAMIN (B-12) 500mcg TABLET PO SCH (08:41)
[2017-09-22] MEDS: ASPIRIN 81 MG CHEWABLE TABLET PO SCH (08:41)
[2017-09-22] MEDS: DOCUSATE SODIUM 100 MG CAPSULE PO SCH (08:43)
--- NOTE | 2017-09-22 09:05 | Pharmacy Consult ---
Pharmacy Consult-Warfarin - Laboratory Information 09/14/17 09/15/17 09/15/17 13:31 04:10 04:10 Hgb 9.8 L Hct 31.4 L INR 4.34 H 4.17 H 09/16/17 09/17/17 09/18/17 11:22 04:48 04:14 Hgb Hct INR 2.69 H 2.13 H 1.97 H 09/19/17 09/19/17 09/20/17 05:13 05:13 04:07 Hgb 10.4 L Hct 33.1 L INR 1.84 H 2.07 H 09/21/17 09/22/17 04:50 08:06 Hgb Hct INR 2.39 H 3.23 H - Consult Information Day 7 67 y.o. M with history of a.fib and chronic anticoagulation with warfarin. Home warfarin dose= 5 mg p o daily. goal INR range= 2.0 to 3.0 INR was supratherapeutic on admission, no dose given 09/14 and 09/15 date INR dose 09/14 4.34 no dose 09/15 4.17 no dose 09/16 2.69 4 mg 09/17 2.13 4 mg 09/18 1.97 5 mg 09/19 1.84 6 mg 09/20 2.07 6 mg 09/21 2.39 6 mg 09/22 3.23 plan: no warfarin dose today INR is supra-therapeutic today. Will give no Warfarin dose today. Nursing reports not visible signs of bleeding. Potential drug-drug interaction exists between Cephalexin and Warfarin. This may increase INR and risk of bleeding. Last dose of Cephalexin was 09/21 @0900 The Pharmacy will monitor and adjust the Warfarin as needed. Thank you, Odalys Rousseau, [facility]
[2017-09-22] MEDS: TRIAMCINOLONE TP SCH ×4 (12:20→22:56)
[2017-09-22] MEDS: NYSTATIN TP SCH ×4 (12:20→22:56)
--- NOTE | 2017-09-22 15:53 | Progress Note ---
- Date 09/22/17 Subjective: Junior was resting in bed. He has no new concerns other than he wants to go home. He actually wants to go home and not to another rehab facility. He denies chest pain, SOA, abdominal pain, appetite changes. He feels like he's walking better but isn't able to move his left arm at all. Objective Vital signs: Temperature 97.5 F 09/22/17 15:38 Pulse Rate 86 09/22/17 15:38 Respiratory Rate 20 09/22/17 15:38 Blood Pressure 113/56 09/22/17 15:38 Pulse Oximetry 95 09/22/17 15:38 Height/Weight/BMI: Height 1.88 m Weight 133.8 kg Body Mass Index 37.6 - Constitutional Present: no acute distress, well nourished, well developed, obese - Routine HEENT Exam Head: Present: normocephalic Eye: Absent: conjunctival icterus, scleral injection - Routine Respiratory Exam Present: CTA bilaterally - Routine Cardiovascular Exam Present: irregularly irregular - Routine Abdominal Exam Present: soft, normoactive bowel sounds, non distended, non tender - Routine Extremities Exam Present: no edema - Routine Skin Exam Present: intact, dry, warm - Routine Neurological Exam Present: alert, oriented X3, motor deficit (Left upper extremity paresis; able to lift left leg off bed and flex/extend knee), facial asymmetry (left facial droop) - Routine Psychiatric Exam Present: normal affect, normal thought process, cooperative Results - Labs CBC & Chem 7: 09/19/17 05:13 09/15/17 04:10 Microbiology Results: Microbiology 09/14/17 16:16 Urine, Voided (Cc/notcc) Urine Culture - Final Escherichia coli Assessment and Plan (1) Left hemiparesis Current visit: Yes Status: Acute (2) CVA (cerebral vascular accident) Current visit: Yes Status: Acute Assessment and Plan: Impression: E. coli UTI Situational depression L shoulder/arm pain - 09/19/17 Large right MCA stroke (05/11/17) Left hemiparesis Dysphagia, resolved Paroxysmal Atrial Fib Chronic anticoagulation on Warfarin HTN LUCIE Anemia, ARMANDO, B12 deficiency Plan: Cephalexin course completed for E. coli UTI. INR supratherapeutic today at 3.23. Oral intake appears to be improving since starting mirtazapine. Did not complain of shoulder pain today. DVT Prophylaxis: Coumadin Resuscitation Status: Full Code - Physician Narrative Narrative: Date: 09/22/17 Time: 1545 Hospital Course Summary Disclaimer: The visit summary below is not to be considered part of the above Progress Note. 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 Patient is very motivated to return to walking and self care. Continue ASA, Warfarin due to atrial fib-chronic. Metoprolol for HTN and weight control. Continue CPAP for LUCIE. s/p PEG tube removal, dysphagia has resolved. Continue oral supplements for anemia, and repeat baseline labs in AM. Continue supportive care. If additional support at home is needed, may be able to refer to [place] for 's benefits as he served in the [employer]. Thank you for the consult. We will follow this pt with you. 09/17/2017 E. coli UTI. Continue Keflex (started 09/16/17). Sensitivities reviewed. INR therapeutic. BP under good control. 09/19/17 On day #4 of cephalexin for UTI. No sxs. Start mirtazapine for situational depression. Tylenol PRN for L shoulder/arm pain. If consistently complains, proceed with imaging. 09/22/17 Cephalexin course completed for E. coli UTI. INR supratherapeutic today at 3.23. Oral intake appears to be improving since starting mirtazapine. Did not complain of shoulder pain today.
[2017-09-22] MEDS: MELATONIN 1 MG TABLET PO PRN (22:55)
[2017-09-22] MEDS: MIRTAZAPINE 15 MG TABLET PO SCH (22:56)
[2017-09-22] MEDS: ATORVASTATIN 20 MG TABLET PO SCH (22:56)
[2017-09-22] MEDS: TRAZODONE 50 MG TABLET PO SCH (22:57)
[2017-09-23] MEDS: PANTOPRAZOLE 40 MG TABLET PO SCH (05:48)
[2017-09-23] MEDS: DOCUSATE SODIUM 100 MG CAPSULE PO SCH (09:24)
[2017-09-23] MEDS: POLYETHYL GLYCOL 3350 17gm PACKET PO SCH (09:24)
[2017-09-23] MEDS: FERROUS GLUCONATE 324 MG TABLET PO SCH (09:24)
[2017-09-23] MEDS: ASPIRIN 81 MG CHEWABLE TABLET PO SCH (09:24)
[2017-09-23] MEDS: CYANOCOBALAMIN (B-12) 500mcg TABLET PO SCH (09:24)
[2017-09-23] MEDS: GABAPENTIN 300 MG CAPSULE PO SCH ×3 (09:28→21:57)
[2017-09-23] MEDS: NYSTATIN TP SCH ×4 (10:11→21:57)
[2017-09-23] MEDS: TRIAMCINOLONE TP SCH ×4 (10:11→21:57)
[2017-09-23] MEDS ORDERED: WARFARIN 4 MG TABLET PO SCH (12:00)
[2017-09-23] MEDS: ATORVASTATIN 20 MG TABLET PO SCH (21:57)
[2017-09-23] MEDS: MIRTAZAPINE 15 MG TABLET PO SCH (21:57)
[2017-09-23] MEDS: MELATONIN 1 MG TABLET PO PRN (21:58)
[2017-09-23] MEDS: TRAZODONE 50 MG TABLET PO SCH (21:58)
[2017-09-24] MEDS: ACETAMINOPHEN 325 MG TABLET PO PRN (06:09)
[2017-09-24] MEDS: PANTOPRAZOLE 40 MG TABLET PO SCH (06:10)
--- NOTE | 2017-09-24 08:18 | Pharmacy Consult ---
Pharmacy Consult-Warfarin - Laboratory Information 09/14/17 09/15/17 09/15/17 13:31 04:10 04:10 Hgb 9.8 L Hct 31.4 L INR 4.34 H 4.17 H 09/16/17 09/17/17 09/18/17 11:22 04:48 04:14 Hgb Hct INR 2.69 H 2.13 H 1.97 H 09/19/17 09/19/17 09/20/17 05:13 05:13 04:07 Hgb 10.4 L Hct 33.1 L INR 1.84 H 2.07 H 09/21/17 09/22/17 09/23/17 04:50 08:06 04:18 Hgb Hct INR 2.39 H 3.23 H 2.94 H 09/24/17 04:48 Hgb Hct INR 2.34 H - Consult Information INR is in target range. Warfarin 5mg po is ordered for noon today. Will continue to monitor. Thank you.
[2017-09-24] MEDS: CYANOCOBALAMIN (B-12) 500mcg TABLET PO SCH (08:58)
[2017-09-24] MEDS: GABAPENTIN 300 MG CAPSULE PO SCH ×3 (08:58→20:15)
[2017-09-24] MEDS: ASPIRIN 81 MG CHEWABLE TABLET PO SCH (08:58)
[2017-09-24] MEDS: POLYETHYL GLYCOL 3350 17gm PACKET PO SCH (08:58)
[2017-09-24] MEDS: FERROUS GLUCONATE 324 MG TABLET PO SCH (08:58)
[2017-09-24] MEDS: DOCUSATE SODIUM 100 MG CAPSULE PO SCH (08:58)
[2017-09-24] MEDS: TRIAMCINOLONE TP SCH ×4 (11:21→20:14)
[2017-09-24] MEDS: NYSTATIN TP SCH ×4 (11:21→20:14)
--- NOTE | 2017-09-24 11:58 | IRU Progress Note ---
- Subjective/Serverity of Illness Date: 09/24/17 Junior was interviewed in his room today on inpatient rehabilitation. He continues to be quite emotional with symptoms consistent with pseudobulbar palsy. Consider restarting Nuedexta but the likelihood of him continuing this as nonpatient is minimal due to coverage. The patient's vital signs are stable. His INR is therapeutic. This is managed by pharmacy. No evidence of bleeding. He continues in atrial fibrillation clinically. He is in no distress and his lungs are clear. From an occupational therapy standpoint, bathing is with moderate assistance as his upper body dressing. Lower body dressing is with maximum assistance due to inability to use the left upper extremity. Physical therapy, as/chair/ wheelchair transfers require total assistance. He is able to ambulate 15-18 feet with a platform walker with total to maximum assistance. Exam Vital Signs: Temperature 98.2 F 09/24/17 08:00 Pulse Rate 77 09/24/17 08:00 Respiratory Rate 16 09/24/17 08:00 Blood Pressure 108/72 09/24/17 08:00 Pulse Oximetry 93 09/24/17 08:00 Height/Weight/BMI: Height 1.88 m Weight 133.8 kg Body Mass Index 37.6 - Constitutional Present: no acute distress, well nourished, well developed, cooperative - Routine HEENT Exam Eye: Present: EOMI ENT: Present: mucous membranes moist, oropharynx clear - Routine Respiratory Exam Present: CTA bilaterally. Absent: wheezes - Routine Cardiovascular Exam Present: S1, S2, irregularly irregular. Absent: murmur - Routine Abdominal Exam Present: soft, normoactive bowel sounds, non distended. Absent: tenderness - Routine Extremities Exam Present: no edema, normal capillary refill - Routine Skin Exam Present: dry, warm - Routine Neurological Exam Present: alert, oriented X3, CN II-XII intact, motor deficit (left upper extremity not able to be intentionally moved. Increased tone noted. Some suggestion of "frozen shoulder" on the left. Left lower extremity demonstrates reduced strength but he is able to ambulate as noted.) - Routine Psychiatric Exam Present: depressed IRU A/P (1) CVA (cerebral vascular accident) Qualifiers: CVA mechanism: embolism Precerebral and cerebral artery: middle cerebral artery Laterality of affected vessel: right Qualified Code(s): I63.411 - Cerebral infarction due to embolism of right middle cerebral artery Current visit: Yes Status: Acute Patient is stable neurologically. Remains on warfarin with therapeutic INR. Left upper extremity demonstrates no intentional movement and does have increased tone. Left lower extremity is weak but able to ambulate. (2) Left hemiparesis Current visit: Yes Status: Acute (3) Paroxysmal atrial fibrillation Current visit: Yes Status: Acute INR is therapeutic. (4) Hypertension Qualifiers: Hypertension type: essential hypertension Qualified Code(s): I10 - Essential (primary) hypertension Current visit: Yes Status: Chronic Blood pressures are well controlled. (5) Obstructive sleep apnea Current visit: Yes Status: Chronic (6) Situational depression Current visit: Yes Status: Acute DVT Prophylaxis: Coumadin Resuscitation Status: Full Code - Course Hospital Course: Erik Shaw MD: 09/17/17 14:58 Cooperative with therapy. Declines to use nasal CPAP. Blood pressures are controlled. Constipated. 09/18/17 12:38 Slow progress with therapy. Blood pressures look good. Continues to be constipated. 09/20/17 11:42 Started on mirtazapine for depression and sleep. Blood pressure stable. He is having bowel movements. Making significant progress particular with PT. 09/21/17 11:15 Patient states he wants to go back to rehabilitation in [place]. Blood pressures are stable. Improving with therapies. He is working hard. 09/24/17 11:58 Patient states that he would like to get back home but this he means the rehabilitation center in [place]. He is making progress. He is medically stable and INR is therapeutic. - Interventions to Obtain Goals PT Treatment Plan: Balance/Proprioception, Functional Activities, Gait Training , Patient/Family Education, Therapeutic Exercise OT Treatment Plan: ADL (Basic Care), Balance Training, Pt./Family Education, Ther. Exercise for ADL Goals Progress/Modifications: Continues to have frequent episodes of crying and tearfulness consistent with pseudobulbar palsy. He is cooperative with therapy and would like to get back to [place] to the rehabilitation center if possible. States that his house is too small for him to go back there. He is making progress in terms of ambulation , transfers and ADLs. Once again I did consider the possibility of pseudobulbar palsy with the use of Nuedexta. However I am not optimistic that he would be able to take this as an outpatient so I'm not certain there is much benefit using it for the short- term. Neurologically he is stable. INR is therapeutic.
[2017-09-24] MEDS ORDERED: WARFARIN 5 MG TABLET PO SCH (12:00)
[2017-09-24] MEDS: ATORVASTATIN 20 MG TABLET PO SCH (20:14)
[2017-09-24] MEDS: MIRTAZAPINE 15 MG TABLET PO SCH (20:15)
[2017-09-24] MEDS: TRAZODONE 50 MG TABLET PO SCH (20:15)
[2017-09-25] MEDS: PANTOPRAZOLE 40 MG TABLET PO SCH (05:45)
[2017-09-25] MEDS: ACETAMINOPHEN 325 MG TABLET PO PRN (05:45)
--- NOTE | 2017-09-25 08:00 | Pharmacy Consult ---
Pharmacy Consult-Warfarin - Laboratory Information 09/14/17 09/15/17 09/15/17 13:31 04:10 04:10 Hgb 9.8 L Hct 31.4 L INR 4.34 H 4.17 H 09/16/17 09/17/17 09/18/17 11:22 04:48 04:14 Hgb Hct INR 2.69 H 2.13 H 1.97 H 09/19/17 09/19/17 09/20/17 05:13 05:13 04:07 Hgb 10.4 L Hct 33.1 L INR 1.84 H 2.07 H 09/21/17 09/22/17 09/23/17 04:50 08:06 04:18 Hgb Hct INR 2.39 H 3.23 H 2.94 H 09/24/17 09/25/17 04:48 04:14 Hgb Hct INR 2.34 H 2.46 H - Consult Information Warfarin 5mg dose today at noon is ordered. INR move up slightly with yesterdays 5mg dose. Thanks
[2017-09-25] MEDS: GABAPENTIN 300 MG CAPSULE PO SCH ×3 (08:56→22:17)
[2017-09-25] MEDS: NYSTATIN TP SCH ×4 (08:56→22:18)
[2017-09-25] MEDS: DOCUSATE SODIUM 100 MG CAPSULE PO SCH (08:56)
[2017-09-25] MEDS: ASPIRIN 81 MG CHEWABLE TABLET PO SCH (08:56)
[2017-09-25] MEDS: CYANOCOBALAMIN (B-12) 500mcg TABLET PO SCH (08:56)
[2017-09-25] MEDS: TRIAMCINOLONE TP SCH ×4 (08:56→22:18)
[2017-09-25] MEDS: FERROUS GLUCONATE 324 MG TABLET PO SCH (08:56)
[2017-09-25] MEDS: POLYETHYL GLYCOL 3350 17gm PACKET PO SCH (08:56)
--- NOTE | 2017-09-25 11:53 | IRU Progress Note ---
- Subjective/Serverity of Illness Date: 09/25/17 Junior was interviewed and examined in his room on inpatient rehabilitation. Left upper extremity continues to not have purposeful movement. Is able to move the left leg which is weaker than the right. He denies any chest pain. He denies any evidence of bleeding. Continues to be cooperative with therapy and making progress. INR is therapeutic. Exam Vital Signs: Temperature 98.4 F 09/25/17 07:39 Pulse Rate 77 09/25/17 07:39 Respiratory Rate 18 09/25/17 07:39 Blood Pressure 107/66 09/25/17 07:39 Pulse Oximetry 90 09/25/17 07:39 Height/Weight/BMI: Height 1.88 m Weight 133.8 kg Body Mass Index 37.6 - Constitutional Present: no acute distress, well nourished, well developed, obese - Routine HEENT Exam Eye: Present: EOMI ENT: Present: mucous membranes moist - Routine Neck Exam Present: supple - Routine Respiratory Exam Present: CTA bilaterally. Absent: wheezes - Routine Cardiovascular Exam Present: S1, S2, irregularly irregular. Absent: murmur - Routine Abdominal Exam Present: soft, normoactive bowel sounds, non distended. Absent: tenderness - Routine Extremities Exam Present: normal capillary refill - Routine Skin Exam Present: dry, warm - Routine Neurological Exam Present: alert, oriented X3, CN II-XII intact, motor deficit (as before, left upper extremity demonstrates increased tone and no movement. Left lower extremity is weak but able to move.) - Routine Psychiatric Exam Present: normal affect IRU A/P (1) CVA (cerebral vascular accident) Qualifiers: CVA mechanism: embolism Precerebral and cerebral artery: middle cerebral artery Laterality of affected vessel: right Qualified Code(s): I63.411 - Cerebral infarction due to embolism of right middle cerebral artery Current visit: Yes Status: Acute Patient is neurologically stable at the present time. Tolerating warfarin without evidence of bleeding. No new neurologic changes identified. (2) Left hemiparesis Current visit: Yes Status: Acute Patient continues to progress with therapy for both PT and OT. (3) Paroxysmal atrial fibrillation Current visit: Yes Status: Acute (4) Hypertension Qualifiers: Hypertension type: essential hypertension Qualified Code(s): I10 - Essential (primary) hypertension Current visit: Yes Status: Chronic (5) Obstructive sleep apnea Current visit: Yes Status: Chronic (6) Situational depression Current visit: Yes Status: Acute DVT Prophylaxis: Coumadin Resuscitation Status: Full Code - Course Hospital Course: Erik Shaw MD: 09/17/17 14:58 Cooperative with therapy. Declines to use nasal CPAP. Blood pressures are controlled. Constipated. 09/18/17 12:38 Slow progress with therapy. Blood pressures look good. Continues to be constipated. 09/20/17 11:42 Started on mirtazapine for depression and sleep. Blood pressure stable. He is having bowel movements. Making significant progress particular with PT. 09/21/17 11:15 Patient states he wants to go back to rehabilitation in [place]. Blood pressures are stable. Improving with therapies. He is working hard. 09/24/17 11:58 Patient states that he would like to get back home but this he means the rehabilitation center in [place]. He is making progress. He is medically stable and INR is therapeutic. 09/25/17 11:53 INR is therapeutic. Continues to work with therapy and making progress. - Interventions to Obtain Goals PT Treatment Plan: Balance/Proprioception, Functional Activities, Gait Training , Patient/Family Education, Therapeutic Exercise OT Treatment Plan: ADL (Basic Care), Balance Training, Pt./Family Education, Ther. Exercise for ADL
[2017-09-25] MEDS ORDERED: WARFARIN 5 MG TABLET PO SCH (12:00)
[2017-09-25] MEDS: MIRTAZAPINE 15 MG TABLET PO SCH (22:17)
[2017-09-25] MEDS: ATORVASTATIN 20 MG TABLET PO SCH (22:17)
[2017-09-25] MEDS: TRAZODONE 50 MG TABLET PO SCH (22:17)
[2017-09-26] MEDS: PANTOPRAZOLE 40 MG TABLET PO SCH (06:34)
--- NOTE | 2017-09-26 07:44 | Pharmacy Consult ---
Pharmacy Consult-Warfarin - Laboratory Information 09/14/17 09/15/17 09/15/17 13:31 04:10 04:10 Hgb 9.8 L Hct 31.4 L INR 4.34 H 4.17 H 09/16/17 09/17/17 09/18/17 11:22 04:48 04:14 Hgb Hct INR 2.69 H 2.13 H 1.97 H 09/19/17 09/19/17 09/20/17 05:13 05:13 04:07 Hgb 10.4 L Hct 33.1 L INR 1.84 H 2.07 H 09/21/17 09/22/17 09/23/17 04:50 08:06 04:18 Hgb Hct INR 2.39 H 3.23 H 2.94 H 09/24/17 09/25/17 09/26/17 04:48 04:14 05:24 Hgb Hct INR 2.34 H 2.46 H 2.30 H - Consult Information INR is remaining fairly stable with 5mg dosing of warfarin daily for the last 3 days. Thanks
[2017-09-26] MEDS: POLYETHYL GLYCOL 3350 17gm PACKET PO SCH (08:53)
[2017-09-26] MEDS: NYSTATIN TP SCH ×4 (08:53→20:42)
[2017-09-26] MEDS: TRIAMCINOLONE TP SCH ×4 (08:53→20:42)
[2017-09-26] MEDS: FERROUS GLUCONATE 324 MG TABLET PO SCH (08:54)
[2017-09-26] MEDS: DOCUSATE SODIUM 100 MG CAPSULE PO SCH (08:54)
[2017-09-26] MEDS: ASPIRIN 81 MG CHEWABLE TABLET PO SCH (08:54)
[2017-09-26] MEDS: CYANOCOBALAMIN (B-12) 500mcg TABLET PO SCH (08:54)
[2017-09-26] MEDS: GABAPENTIN 300 MG CAPSULE PO SCH ×3 (08:54→20:43)
[2017-09-26] MEDS ORDERED: FALL RISK - PHARMACY CONSULT MC ONE (10:04)
[2017-09-26] MEDS ORDERED: WARFARIN 5 MG TABLET PO SCH (12:00)
[2017-09-26] MEDS: TRAZODONE 50 MG TABLET PO SCH (20:43)
[2017-09-26] MEDS: MIRTAZAPINE 15 MG TABLET PO SCH (20:43)
[2017-09-26] MEDS: ATORVASTATIN 20 MG TABLET PO SCH (20:43)
[2017-09-27] MEDS: PANTOPRAZOLE 40 MG TABLET PO SCH (05:33)
--- NOTE | 2017-09-27 07:28 | Pharmacy Consult ---
Pharmacy Consult-Warfarin - Laboratory Information 09/14/17 09/15/17 09/15/17 13:31 04:10 04:10 Hgb 9.8 L Hct 31.4 L INR 4.34 H 4.17 H 09/16/17 09/17/17 09/18/17 11:22 04:48 04:14 Hgb Hct INR 2.69 H 2.13 H 1.97 H 09/19/17 09/19/17 09/20/17 05:13 05:13 04:07 Hgb 10.4 L Hct 33.1 L INR 1.84 H 2.07 H 09/21/17 09/22/17 09/23/17 04:50 08:06 04:18 Hgb Hct INR 2.39 H 3.23 H 2.94 H 09/24/17 09/25/17 09/26/17 04:48 04:14 05:24 Hgb Hct INR 2.34 H 2.46 H 2.30 H 09/27/17 09/27/17 04:10 04:10 Hgb 9.9 L Hct 31.3 L INR 2.26 H - Consult Information COUMADIN CONSULT (RECURRING): INR REMAINS STABLE ON 5 MG DAILY (WHICH IS THE PATIENT'S HOME DOSE). PHARMACY WILL CONTINUE TO MONITOR THE INR AND ADJUST THE DOSE NEEDED. Tiffany MoodyD
[2017-09-27] MEDS: POLYETHYL GLYCOL 3350 17gm PACKET PO SCH (08:47)
[2017-09-27] MEDS: FERROUS GLUCONATE 324 MG TABLET PO SCH (08:47)
[2017-09-27] MEDS: GABAPENTIN 300 MG CAPSULE PO SCH ×3 (08:47→21:38)
[2017-09-27] MEDS: DOCUSATE SODIUM 100 MG CAPSULE PO SCH (08:47)
[2017-09-27] MEDS: CYANOCOBALAMIN (B-12) 500mcg TABLET PO SCH (08:47)
[2017-09-27] MEDS: ASPIRIN 81 MG CHEWABLE TABLET PO SCH (08:47)
[2017-09-27] MEDS ORDERED: WARFARIN 5 MG TABLET PO SCH (12:00)
[2017-09-27] MEDS: NYSTATIN TP SCH ×4 (12:43→21:38)
[2017-09-27] MEDS: TRIAMCINOLONE TP SCH ×4 (12:43→21:38)
--- NOTE | 2017-09-27 13:21 | IRU Progress Note ---
- Subjective/Serverity of Illness Date: 09/27/17 Junior was evaluated in his room on inpatient rehabilitation. He remains in atrial fibrillation clinically. He is working hard with therapy and making good progress, particularly physical therapy. He was able to ambulate today some 45 feet with assistance. He also continues to participate with occupational therapy and is making progress. He reports his appetite is good. He denies any chest pain or shortness of breath. Review of lab was undertaken. Hemoglobin is 9.9 g percent which is roughly stable. Exam Vital Signs: Temperature 97.2 F 09/27/17 00:00 Pulse Rate 80 09/27/17 08:55 Respiratory Rate 20 09/27/17 00:00 Blood Pressure 98/69 09/27/17 08:55 Pulse Oximetry 99 09/27/17 00:00 Height/Weight/BMI: Height 1.88 m Weight 133.8 kg Body Mass Index 37.6 - Constitutional Present: no acute distress, well nourished, well developed, obese, cooperative - Routine HEENT Exam Eye: Present: EOMI ENT: Present: mucous membranes moist - Routine Neck Exam Present: supple - Routine Respiratory Exam Present: decreased breath sounds, CTA bilaterally. Absent: wheezes - Routine Cardiovascular Exam Present: S1, S2, irregularly irregular. Absent: murmur - Routine Abdominal Exam Present: soft, normoactive bowel sounds, non distended. Absent: tenderness - Routine Extremities Exam Present: normal capillary refill - Routine Skin Exam Present: dry, warm - Routine Neurological Exam Present: alert, oriented X3, motor deficit (again left upper extremity shows no purposeful movement. Left lower extremity is weak but unchanged from before.). Absent: CN II-XII intact - Routine Psychiatric Exam Present: normal affect Results IRU - Labs Labs: Have reviewed chart dated including labs and INR. IRU A/P (1) CVA (cerebral vascular accident) Qualifiers: CVA mechanism: embolism Precerebral and cerebral artery: middle cerebral artery Laterality of affected vessel: right Qualified Code(s): I63.411 - Cerebral infarction due to embolism of right middle cerebral artery Current visit: Yes Status: Acute Junior is making good progress from a physical therapy and occupational therapy standpoint. His neurologic status appears to be stable at present. We are continuing to monitor his INR. Has no evidence of active bleeding and hemoglobin is roughly stable. (2) Left hemiparesis Current visit: Yes Status: Acute (3) Paroxysmal atrial fibrillation Current visit: Yes Status: Acute (4) Hypertension Qualifiers: Hypertension type: essential hypertension Qualified Code(s): I10 - Essential (primary) hypertension Current visit: Yes Status: Chronic Blood pressure slightly down today. We'll monitor carefully. (5) Obstructive sleep apnea Current visit: Yes Status: Chronic (6) Situational depression Current visit: Yes Status: Acute DVT Prophylaxis: Coumadin Resuscitation Status: Full Code - Course Hospital Course: Erik Shaw MD: 09/17/17 14:58 Cooperative with therapy. Declines to use nasal CPAP. Blood pressures are controlled. Constipated. 09/18/17 12:38 Slow progress with therapy. Blood pressures look good. Continues to be constipated. 09/20/17 11:42 Started on mirtazapine for depression and sleep. Blood pressure stable. He is having bowel movements. Making significant progress particular with PT. 09/21/17 11:15 Patient states he wants to go back to rehabilitation in [place]. Blood pressures are stable. Improving with therapies. He is working hard. 09/24/17 11:58 Patient states that he would like to get back home but this he means the rehabilitation center in [place]. He is making progress. He is medically stable and INR is therapeutic. 09/25/17 11:53 INR is therapeutic. Continues to work with therapy and making progress. 09/27/17 13:22 Making progress particularly with physical therapy. Neurologically stable. Blood pressure down a bit and we will monitor. - Interventions to Obtain Goals PT Treatment Plan: Balance/Proprioception, Functional Activities, Gait Training , Patient/Family Education, Therapeutic Exercise OT Treatment Plan: ADL (Basic Care), Balance Training, Pt./Family Education, Ther. Exercise for ADL
--- NOTE | 2017-09-27 13:25 | IRU Team Meeting ---
IRU Team Meeting - Nursing Bladder Assistive Devices Utilized:: Urinal, Absorbent Pad Bladder Management Level of Assist: Total Assistance Bladder Frequency of Accidents: No accidents Bowel Assistive Devices Utilized:: Medication, Absorbent Pad Bowel Management Level of Assist: Modified Independent Vital Signs: Vital Signs - 24 hr 09/26/17 15:48 09/27/17 00:00 09/27/17 08:55 Temperature 97.7 F 97.2 F Pulse Rate 100 69 80 Respiratory Rate 18 20 Blood Pressure 129/71 127/69 98/69 Pulse Oximetry 96 99 Current Medications: Acetaminophen (Tylenol) 650 mg PO Q5H PRN PRN Reason: Pain Last Admin: 09/25/17 05:45 Dose: 650 mg Albuterol Sulfate (Proventil Neb (0.083%)) 2.5 mg AEROSOL Q6H PRN PRN Reason: Shortness of air/wheezing Aspirin (Asa) 81 mg PO DAILY [facility] Last Admin: 09/27/17 08:47 Dose: 81 mg Atorvastatin Calcium (Lipitor) 20 mg PO HS [facility] Last Admin: 09/26/17 20:43 Dose: 20 mg Benzocaine (Preparation H) 1 applic TOP Q4H PRN PRN Reason: Hemorrhoids Bisacodyl (Dulcolax) 10 mg RECTALLY DAILY PRN PRN Reason: Constipation Last Admin: 09/18/17 14:31 Dose: 10 mg Cyanocobalamin (Vit. B-12) 1,000 mcg PO DAILY [facility] Last Admin: 09/27/17 08:47 Dose: 1,000 mcg Docusate Sodium (Colace) 100 mg PO DAILY [facility] Last Admin: 09/27/17 08:47 Dose: 100 mg Ferrous Gluconate (Fergon) 324 mg PO WB [facility] Last Admin: 09/27/17 08:47 Dose: 324 mg Gabapentin (Neurontin) 300 mg PO TID [facility] Last Admin: 09/27/17 08:47 Dose: 300 mg Magnesium Hydroxide (Mom) 30 ml PO DAILY PRN PRN Reason: Constipation Last Admin: 09/23/17 17:18 Dose: 30 ml Melatonin (Melatonin) 3 mg PO HS PRN PRN Reason: Sleep Last Admin: 09/23/17 21:58 Dose: 3 mg Metoprolol Tartrate (Lopressor) 25 mg PO BIDWM [facility] Last Admin: 09/27/17 10:27 Dose: Not Given Mirtazapine (Remeron) 15 mg PO HS [facility] Last Admin: 09/26/17 20:43 Dose: 15 mg Nystatin/Triamcinolone Acetonide (Mycolog Ii) 1 applic TP QID [facility] Last Admin: 09/27/17 12:43 Dose: Not Given Pantoprazole Sodium (Protonix Tab) 40 mg PO ACB [facility] Last Admin: 09/27/17 05:33 Dose: 40 mg Polyethylene Glycol (Miralax) 17 gm PO DAILY [facility] Last Admin: 09/27/17 08:47 Dose: 17 gm Trazodone HCl (Desyrel) 50 mg PO HS [facility] Last Admin: 09/26/17 20:43 Dose: 50 mg Warfarin Sodium (Coumadin Protocol) 0 MC NOTE TOMAS Current Medical Issues: Recent right hemispheric CVA with left hemiparesis, hypertension, atrial fibrillation Comments: I certify that I personally led the interdisciplinary team meeting and agree with comments, barriers and goals indicated. Team meeting was held in the patient's room with the patient and the following family members present: Patient's and son Junior is cooperative with therapy and nursing. His appetite is good. His bowels are moving. Denies any chest pain or shortness of breath. Neurologically he remains unchanged. His blood pressures are overall stable but down a bit today. - Physical Therapy Bed, Chair, Wheelchair Transfer Assist: Maximal Assistance, 1 Person Assist Ambulation Ability: Total Assistance, 1 Person Assist Ambulation Distance: 46 Wheelchair Propulsion Ability: Modified Independent, 1 Person Assist Wheelchair Propulsion Distance: 134 Stair Climbing Ability: Patient Unsafe/Unable Car Transfer Ability: Patient Unsafe/Unable Comments: Junior was able to ambulate some 45 feet today with hemiwalker and with assistance. He is making good progress with physical therapy. - Occupational Therapy Eating Ability: Stand By Assist/Supervision Grooming Ability: Minimal Assistance Bathing Ability: Moderate Assistance Upper Body Dressing Ability: Moderate Assistance Lower Body Dressing Ability: Maximal Assistance Tub Transfer Assist: Patient Unsafe/Unable Toileting Assist: Total Assistance Toilet Transfer Assist: Maximal Assistance, 1 Person Assist Comments: Junior is working on upper extremity/upper body dressing as well as lower body dressing. Slow progress noted. He is cooperative and making an effort. - Goals Physical Therapy Goals: 09/20/17 Goals: 1.) Ambulate 30 feet with moderate assistance. - met. 2.) Transfers requiring moderate assistance. - met. 3.) Static standing balance with no upper extremity support for 30 seconds. - met. 09/27/17. 1.) Ambulate 50 feet with minimal assistance and no LOB. 2.) Transfers requiring minimal assistance. Occupational Therapy Goals: OT goals 09/20/17, 09/27/17: 1.) Upper body dressing with supervision.- continue (Pt. currently requires moderate assistance). 2.) Lower body dressing with minimal assistance. - continue (Pt. currently requires maximal assistance). 3.) Toilet transfer with moderate assistance. - continue ( Pt. currently requires maximal assistance) - Barriers to Discharge Barriers to Attaining Goals: Balance (to address imbalance, patient is offered balance and proprioceptive training.), Other (reduced coordination. To address this, additional coordination activities are offered.) - Care Plan Anticipated Length of Stay (days): 10 Anticipated Length of Stay: Reassess in one week Anticipated DC Destination: Home, Self Care, Home Health Service I have led this team conference and agree with the plan. Interventions/Goals: Patient is making progress but particularly with regard to physical therapy. At this point it is hoped that he will be able to return to his home. We will reassess things in one week.
[2017-09-27] MEDS: ATORVASTATIN 20 MG TABLET PO SCH (21:38)
[2017-09-27] MEDS: SENNA + DOCUSATE TABLET PO SCH (21:38)
[2017-09-27] MEDS: TRAZODONE 50 MG TABLET PO SCH (21:38)
[2017-09-27] MEDS: MIRTAZAPINE 15 MG TABLET PO SCH (21:38)
[2017-09-27] MEDS: MELATONIN 1 MG TABLET PO PRN (21:38)
[2017-09-28] MEDS: PANTOPRAZOLE 40 MG TABLET PO SCH (06:14)
[2017-09-28] MEDS: ASPIRIN 81 MG CHEWABLE TABLET PO SCH (08:42)
[2017-09-28] MEDS: FERROUS GLUCONATE 324 MG TABLET PO SCH (08:42)
[2017-09-28] MEDS: CYANOCOBALAMIN (B-12) 500mcg TABLET PO SCH (08:42)
[2017-09-28] MEDS: DOCUSATE SODIUM 100 MG CAPSULE PO SCH (08:43)
[2017-09-28] MEDS: NYSTATIN TP SCH ×4 (08:43→19:44)
[2017-09-28] MEDS: TRIAMCINOLONE TP SCH ×4 (08:43→19:44)
[2017-09-28] MEDS: POLYETHYL GLYCOL 3350 17gm PACKET PO SCH (08:45)
[2017-09-28] MEDS: SENNA + DOCUSATE TABLET PO SCH ×2 (08:45→19:45)
[2017-09-28] MEDS: GABAPENTIN 300 MG CAPSULE PO SCH ×3 (08:45→19:43)
--- NOTE | 2017-09-28 11:54 | IRU Progress Note ---
- Subjective/Serverity of Illness Date: 09/28/17 Junior reports that he is able to walk further distances and improve with regard to self management and strength. Continues to be frustrated with left leg weakness he states. No movement in the left arm noted. He reports a good appetite. He denies any nausea or vomiting and reports that his bowels are moving adequately. His INR is slightly subtherapeutic today. Vascular access is difficult with regard to blood draws. No evidence of active bleeding. No new neurologic changes are identified. Exam Vital Signs: Temperature 97.8 F 09/28/17 07:47 Pulse Rate 75 09/28/17 07:47 Respiratory Rate 20 09/28/17 07:47 Blood Pressure 128/69 09/28/17 07:47 Pulse Oximetry 95 09/28/17 07:47 Height/Weight/BMI: Height 1.88 m Weight 133.8 kg Body Mass Index 37.6 - Constitutional Present: no acute distress, well nourished, well developed, obese, cooperative - Routine HEENT Exam Eye: Present: EOMI ENT: Present: mucous membranes moist, oropharynx clear - Routine Respiratory Exam Present: CTA bilaterally. Absent: wheezes - Routine Cardiovascular Exam Present: S1, S2, irregularly irregular. Absent: murmur - Routine Abdominal Exam Present: soft, normoactive bowel sounds, non distended. Absent: tenderness - Routine Extremities Exam Present: no edema, normal capillary refill - Routine Skin Exam Present: dry, warm - Routine Neurological Exam Present: alert, oriented X3, CN II-XII intact, motor deficit (Left upper and lower ext as before.) - Routine Psychiatric Exam Present: normal affect IRU A/P (1) CVA (cerebral vascular accident) Qualifiers: CVA mechanism: embolism Precerebral and cerebral artery: middle cerebral artery Laterality of affected vessel: right Qualified Code(s): I63.411 - Cerebral infarction due to embolism of right middle cerebral artery Current visit: Yes Status: Acute Neurologically he appears to be stable at present. Continue to monitor for any neurologic changes however. Progress with therapy continues to be identified. (2) Left hemiparesis Current visit: Yes Status: Acute (3) Paroxysmal atrial fibrillation Current visit: Yes Status: Acute (4) Hypertension Qualifiers: Hypertension type: essential hypertension Qualified Code(s): I10 - Essential (primary) hypertension Current visit: Yes Status: Chronic (5) Obstructive sleep apnea Current visit: Yes Status: Chronic (6) Situational depression Current visit: Yes Status: Acute DVT Prophylaxis: Coumadin Resuscitation Status: Full Code - Course Hospital Course: Erik Shaw MD: 09/17/17 14:58 Cooperative with therapy. Declines to use nasal CPAP. Blood pressures are controlled. Constipated. 09/18/17 12:38 Slow progress with therapy. Blood pressures look good. Continues to be constipated. 09/20/17 11:42 Started on mirtazapine for depression and sleep. Blood pressure stable. He is having bowel movements. Making significant progress particular with PT. 09/21/17 11:15 Patient states he wants to go back to rehabilitation in [place]. Blood pressures are stable. Improving with therapies. He is working hard. 09/24/17 11:58 Patient states that he would like to get back home but this he means the rehabilitation center in [place]. He is making progress. He is medically stable and INR is therapeutic. 09/25/17 11:53 INR is therapeutic. Continues to work with therapy and making progress. 09/27/17 13:22 Making progress particularly with physical therapy. Neurologically stable. Blood pressure down a bit and we will monitor. 09/28/17 11:54 Neurologically stable. INR slightly subtherapeutic. Continues to work with therapy and make progress. - Interventions to Obtain Goals PT Treatment Plan: Balance/Proprioception, Functional Activities, Gait Training , Patient/Family Education, Therapeutic Exercise OT Treatment Plan: ADL (Basic Care), Balance Training, Pt./Family Education, Ther. Exercise for ADL
[2017-09-28] MEDS ORDERED: WARFARIN 6 MG TABLET PO SCH (12:00)
--- NOTE | 2017-09-28 12:48 | Pharmacy Consult ---
Pharmacy Consult-Warfarin - Laboratory Information 09/24/17 09/25/17 09/26/17 04:48 04:14 05:24 Hgb Hct INR 2.34 H 2.46 H 2.30 H 09/27/17 09/27/17 09/28/17 04:10 04:10 05:15 Hgb 9.9 L Hct 31.3 L INR 2.26 H 1.80 H - Consult Information Warfarin Consult: Day 13 The INR was 1.80 and had dropped from 2.26 yesterday. The INR is subtherapeutic so I increased the dose of warfarin to 6 mg po today. Thanks for the Warfarin Dosing Protocol, Ez Simon, Pharmacist.
[2017-09-28] MEDS: ATORVASTATIN 20 MG TABLET PO SCH (19:43)
[2017-09-28] MEDS: MIRTAZAPINE 15 MG TABLET PO SCH (19:43)
[2017-09-28] MEDS: TRAZODONE 50 MG TABLET PO SCH (19:45)
[2017-09-28] MEDS: MELATONIN 1 MG TABLET PO PRN (19:45)
[2017-09-29] MEDS: GABAPENTIN 300 MG CAPSULE PO SCH ×4 (05:47→21:16)
[2017-09-29] MEDS: ATORVASTATIN 20 MG TABLET PO SCH ×2 (05:47→21:16)
[2017-09-29] MEDS: MIRTAZAPINE 15 MG TABLET PO SCH ×2 (05:48→21:16)
[2017-09-29] MEDS: NYSTATIN TP SCH ×5 (05:48→21:16)
[2017-09-29] MEDS: SENNA + DOCUSATE TABLET PO SCH ×3 (05:48→21:16)
[2017-09-29] MEDS: TRAZODONE 50 MG TABLET PO SCH ×2 (05:48→21:18)
[2017-09-29] MEDS: TRIAMCINOLONE TP SCH ×5 (05:48→21:16)
[2017-09-29] MEDS: PANTOPRAZOLE 40 MG TABLET PO SCH (06:08)
[2017-09-29] MEDS: POLYETHYL GLYCOL 3350 17gm PACKET PO SCH (09:04)
[2017-09-29] MEDS: ASPIRIN 81 MG CHEWABLE TABLET PO SCH (09:04)
[2017-09-29] MEDS: CYANOCOBALAMIN (B-12) 500mcg TABLET PO SCH (09:05)
[2017-09-29] MEDS: DOCUSATE SODIUM 100 MG CAPSULE PO SCH (09:05)
[2017-09-29] MEDS: FERROUS GLUCONATE 324 MG TABLET PO SCH (09:05)
[2017-09-29] MEDS ORDERED: WARFARIN 6 MG TABLET PO SCH (12:00)
--- NOTE | 2017-09-29 12:20 | Pharmacy Consult ---
Pharmacy Consult-Warfarin - Laboratory Information 09/14/17 09/15/17 09/15/17 13:31 04:10 04:10 Hgb 9.8 L Hct 31.4 L INR 4.34 H 4.17 H 09/16/17 09/17/17 09/18/17 11:22 04:48 04:14 Hgb Hct INR 2.69 H 2.13 H 1.97 H 09/19/17 09/19/17 09/20/17 05:13 05:13 04:07 Hgb 10.4 L Hct 33.1 L INR 1.84 H 2.07 H 09/21/17 09/22/17 09/23/17 04:50 08:06 04:18 Hgb Hct INR 2.39 H 3.23 H 2.94 H 09/24/17 09/25/17 09/26/17 04:48 04:14 05:24 Hgb Hct INR 2.34 H 2.46 H 2.30 H 09/27/17 09/27/17 09/28/17 04:10 04:10 05:15 Hgb 9.9 L Hct 31.3 L INR 2.26 H 1.80 H 09/29/17 07:23 Hgb Hct INR 2.0 H - Consult Information COUMADIN CONSULT (Recurring): INR is 2.0 today after 6 MG warfarin dose yesterday. Will give another dose of 6 mg today. Thank you. Sarah Garcia, TiffanyD
[2017-09-29] MEDS: MELATONIN 1 MG TABLET PO PRN (21:16)
[2017-09-30] MEDS: PANTOPRAZOLE 40 MG TABLET PO SCH (06:10)
[2017-09-30] MEDS: FERROUS GLUCONATE 324 MG TABLET PO SCH (09:12)
[2017-09-30] MEDS: CYANOCOBALAMIN (B-12) 500mcg TABLET PO SCH (09:12)
[2017-09-30] MEDS: SENNA + DOCUSATE TABLET PO SCH ×2 (09:12→21:15)
[2017-09-30] MEDS: NYSTATIN TP SCH ×4 (09:13→21:16)
[2017-09-30] MEDS: TRIAMCINOLONE TP SCH ×4 (09:13→21:16)
[2017-09-30] MEDS: GABAPENTIN 300 MG CAPSULE PO SCH ×3 (09:13→21:16)
[2017-09-30] MEDS: ASPIRIN 81 MG CHEWABLE TABLET PO SCH (09:13)
[2017-09-30] MEDS: POLYETHYL GLYCOL 3350 17gm PACKET PO SCH (09:13)
[2017-09-30] MEDS: DOCUSATE SODIUM 100 MG CAPSULE PO SCH (09:13)
--- NOTE | 2017-09-30 09:26 | Pharmacy Consult ---
Pharmacy Consult-Warfarin - Laboratory Information 09/14/17 09/15/17 09/15/17 13:31 04:10 04:10 Hgb 9.8 L Hct 31.4 L INR 4.34 H 4.17 H 09/16/17 09/17/17 09/18/17 11:22 04:48 04:14 Hgb Hct INR 2.69 H 2.13 H 1.97 H 09/19/17 09/19/17 09/20/17 05:13 05:13 04:07 Hgb 10.4 L Hct 33.1 L INR 1.84 H 2.07 H 09/21/17 09/22/17 09/23/17 04:50 08:06 04:18 Hgb Hct INR 2.39 H 3.23 H 2.94 H 09/24/17 09/25/17 09/26/17 04:48 04:14 05:24 Hgb Hct INR 2.34 H 2.46 H 2.30 H 09/27/17 09/27/17 09/28/17 04:10 04:10 05:15 Hgb 9.9 L Hct 31.3 L INR 2.26 H 1.80 H 09/29/17 09/30/17 07:23 06:41 Hgb Hct INR 2.0 H 2.40 H - Consult Information COUMADIN CONSULT (Recurring): INR is 2.4 today after 6 MG warfarin dose yesterday. The INR jumped up from 2.0 to 2.4. Will give a 3 MG dose of warfarin today. Thank you. Sarah Garcia, PharmD
[2017-09-30] MEDS ORDERED: WARFARIN 3 MG TABLET PO SCH (12:00)
--- NOTE | 2017-09-30 15:52 | Progress Note ---
- Date 09/30/17 Subjective: Junior is seen today in follow up. He is doing well, denies any c/o. Report eating well and bowels are moving normally. Reports that he has been increasing his walking- walked 74 feet yesterday! Denies any other acute concerns. Objective Vital signs: Temperature 97.9 F 09/30/17 07:59 Pulse Rate 75 09/30/17 07:59 Respiratory Rate 16 09/30/17 07:59 Blood Pressure 146/71 H 09/30/17 07:59 Pulse Oximetry 92 09/30/17 07:59 Height/Weight/BMI: Height 1.88 m Weight 136.7 kg Body Mass Index 37.6 - Constitutional Present: no acute distress, obese, cooperative - Routine HEENT Exam Head: Present: normocephalic, atraumatic Eye: Present: EOMI, PERRL ENT: Present: mucous membranes moist - Routine Respiratory Exam Present: CTA bilaterally. Absent: rales, rhonchi, wheezes - Routine Cardiovascular Exam Present: RRR, S1, S2, no murmur - Routine Abdominal Exam Present: soft, normoactive bowel sounds, non distended, non tender - Routine Extremities Exam Present: no edema, non tender, pulses intact - Routine Musculoskeletal Exam Musculoskeletal: Present: limited range of motion. Absent: normal gait - Routine Skin Exam Present: intact, dry, warm - Routine Neurological Exam Present: alert, oriented X3, normal speech. Absent: moving all extremities, facial asymmetry - Routine Psychiatric Exam Present: normal affect, normal thought process, cooperative Results - Labs CBC & Chem 7: 09/27/17 04:10 09/27/17 04:10 Microbiology Results: Microbiology 09/14/17 16:16 Urine, Voided (Cc/notcc) Urine Culture - Final Escherichia coli Assessment and Plan (1) Left hemiparesis Current visit: Yes Status: Acute (2) CVA (cerebral vascular accident) Current visit: Yes Status: Acute Assessment and Plan: Impression: E. coli UTI (POA)- Keflex completed Situational depression L shoulder/arm pain - 09/19/17 Large right MCA stroke (05/11/17) Left hemiparesis Dysphagia, resolved Paroxysmal Atrial Fib Chronic anticoagulation on Warfarin HTN LUCIE Anemia, ARMANDO, B12 deficiency Plan: 09/30/17 He is feeling well. Slow gains in ambulation. Mood is good. Weight has been stable. Pharmacy following Warfarin. Repeat CBC this week due to chronic anemia. BP looks good. - Physician Narrative Narrative: Date: 09/30/17 Time: 1548 Hospital Course Summary Disclaimer: The visit summary below is not to be considered part of the above Progress Note. 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 Patient is very motivated to return to walking and self care. Continue ASA, Warfarin due to atrial fib-chronic. Metoprolol for HTN and weight control. Continue CPAP for LUCIE. s/p PEG tube removal, dysphagia has resolved. Continue oral supplements for anemia, and repeat baseline labs in AM. Continue supportive care. If additional support at home is needed, may be able to refer to [place] for 's benefits as he [place] in [place] [employer] [place] Thank you for the consult. We will follow this pt with you. 09/17/2017 E. coli UTI. Continue Keflex (started 09/16/17). Sensitivities reviewed. INR therapeutic. BP under good control. 09/19/17 On day #4 of cephalexin for UTI. No sxs. Start mirtazapine for situational depression. Tylenol PRN for L shoulder/arm pain. If consistently complains, proceed with imaging. 09/22/17 Cephalexin course completed for E. coli UTI. INR supratherapeutic today at 3.23. Oral intake appears to be improving since starting mirtazapine. Did not complain of shoulder pain today. 09/30/17 He is feeling well. Slow gains in ambulation. Mood is good. Weight has been stable. Pharmacy following Warfarin. Repeat CBC this week due to chronic anemia. BP looks good.
[2017-09-30] MEDS: MELATONIN 1 MG TABLET PO PRN (21:15)
[2017-09-30] MEDS: TRAZODONE 50 MG TABLET PO SCH (21:15)
[2017-09-30] MEDS: MIRTAZAPINE 15 MG TABLET PO SCH (21:16)
[2017-09-30] MEDS: ATORVASTATIN 20 MG TABLET PO SCH (21:16)
[2017-10-01] MEDS: TRIAMCINOLONE TP SCH ×5 (07:50→21:55)
[2017-10-01] MEDS: NYSTATIN TP SCH ×5 (07:50→21:55)
[2017-10-01] MEDS: PANTOPRAZOLE 40 MG TABLET PO SCH (07:52)
--- NOTE | 2017-10-01 08:26 | Pharmacy Consult ---
Pharmacy Consult-Warfarin - Laboratory Information 09/14/17 09/15/17 09/15/17 13:31 04:10 04:10 Hgb 9.8 L Hct 31.4 L INR 4.34 H 4.17 H 09/16/17 09/17/17 09/18/17 11:22 04:48 04:14 Hgb Hct INR 2.69 H 2.13 H 1.97 H 09/19/17 09/19/17 09/20/17 05:13 05:13 04:07 Hgb 10.4 L Hct 33.1 L INR 1.84 H 2.07 H 09/21/17 09/22/17 09/23/17 04:50 08:06 04:18 Hgb Hct INR 2.39 H 3.23 H 2.94 H 09/24/17 09/25/17 09/26/17 04:48 04:14 05:24 Hgb Hct INR 2.34 H 2.46 H 2.30 H 09/27/17 09/27/17 09/28/17 04:10 04:10 05:15 Hgb 9.9 L Hct 31.3 L INR 2.26 H 1.80 H 09/29/17 09/30/17 10/01/17 07:23 06:41 04:29 Hgb 10.7 L Hct 32.0 L INR 2.0 H 2.40 H 10/01/17 04:29 Hgb Hct INR 2.50 H - Consult Information 67 y.o. M with history of a.fib and chronic anticoagulation with warfarin. Home warfarin dose= 5 mg p o daily. goal INR range= 2.0 to 3.0 date INR dose 09/14 4.34 no dose 09/15 4.17 no dose 09/16 2.69 4 mg 09/17 2.13 4 mg 09/18 1.97 5 mg 09/19 1.84 6 mg 09/20 2.07 6 mg 09/21 2.39 6 mg 09/22 3.23 no warfarin dose 09/23 2.94 4 mg 09/24 2.34 5 mg 09/25 2.46 5 mg 09/26 2.30 5 mg 09/27 2.26 5 mg 09/28 1.80 6 mg 09/29 2.0 6 mg 09/30 2.40 3 mg 10/01 2.50 plan: 5 mg po daily Will order Warfarin 5 mg po daily with INR every Sunday and . The Pharmacy will monitor and adjust the Warfarin as needed. Thank you, Odalys Rousseau RPh
[2017-10-01] MEDS: POLYETHYL GLYCOL 3350 17gm PACKET PO SCH (08:42)
[2017-10-01] MEDS: GABAPENTIN 300 MG CAPSULE PO SCH ×3 (08:43→21:54)
[2017-10-01] MEDS: ACETAMINOPHEN 325 MG TABLET PO PRN (08:44)
[2017-10-01] MEDS: FERROUS GLUCONATE 324 MG TABLET PO SCH (08:45)
[2017-10-01] MEDS: DOCUSATE SODIUM 100 MG CAPSULE PO SCH (08:45)
[2017-10-01] MEDS: CYANOCOBALAMIN (B-12) 500mcg TABLET PO SCH (08:45)
[2017-10-01] MEDS: SENNA + DOCUSATE TABLET PO SCH ×2 (08:46→21:55)
[2017-10-01] MEDS: ASPIRIN 81 MG CHEWABLE TABLET PO SCH (08:48)
--- NOTE | 2017-10-01 11:50 | IRU Progress Note ---
- Subjective/Serverity of Illness Date: 10/01/17 Eladia was reassessed in his room today. Continues to be tearful quite frequently. Again this appears to be consistent with a pseudo-bulbar affect most likely as these are unpredictable and brief. He is cooperative with therapy. Continues to work on ambulation and transfers. He states he wants to get out of here by October 10. He states his family is working on modifications at home although he realizes he will likely have to go to long-term care in the interim. He remains on warfarin with a therapeutic INR managed by pharmacy. He denies any pains. Denies shortness of breath or chest pain. Bowels are moving adequately. Exam Vital Signs: Temperature 97.8 F 10/01/17 07:33 Pulse Rate 82 10/01/17 07:33 Respiratory Rate 18 10/01/17 07:33 Blood Pressure 135/69 10/01/17 07:33 Pulse Oximetry 93 10/01/17 07:33 Height/Weight/BMI: Height 1.88 m Weight 136.7 kg Body Mass Index 37.6 - Constitutional Present: no acute distress, well nourished, well developed, obese, cooperative - Routine HEENT Exam Eye: Present: EOMI ENT: Present: mucous membranes moist, oropharynx clear - Routine Respiratory Exam Present: CTA bilaterally. Absent: wheezes - Routine Cardiovascular Exam Present: S1, S2, irregularly irregular. Absent: murmur - Routine Abdominal Exam Present: soft, normoactive bowel sounds, non distended. Absent: tenderness - Routine Extremities Exam Present: normal capillary refill - Routine Skin Exam Present: dry, warm - Routine Neurological Exam Present: alert, oriented X3, motor deficit (left upper extremity increased tone but no purposeful movement. Left lower extremity can move but is weaker than the right. Things appear to be stable.), normal speech. Absent: CN II-XII intact - Routine Psychiatric Exam Present: normal affect, depressed (vs pseudo-bulbar affect) Results IRU - Labs Labs: I have reviewed recent labs, chart data and other providers notes. IRU A/P (1) CVA (cerebral vascular accident) Qualifiers: CVA mechanism: embolism Precerebral and cerebral artery: middle cerebral artery Laterality of affected vessel: right Qualified Code(s): I63.411 - Cerebral infarction due to embolism of right middle cerebral artery Current visit: Yes Status: Acute Neurologically he seems to be stable. Left lower extremity weak but able to be utilized. Progressing with therapy with regard to transfers and ambulation. (2) Left hemiparesis Current visit: Yes Status: Acute (3) Paroxysmal atrial fibrillation Current visit: Yes Status: Acute INR is therapeutic. No evidence of active bleeding. 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 DVT Prophylaxis: Coumadin Resuscitation Status: Full Code - Course Hospital Course: Erik Shaw MD: 09/17/17 14:58 Cooperative with therapy. Declines to use nasal CPAP. Blood pressures are controlled. Constipated. 09/18/17 12:38 Slow progress with therapy. Blood pressures look good. Continues to be constipated. 09/20/17 11:42 Started on mirtazapine for depression and sleep. Blood pressure stable. He is having bowel movements. Making significant progress particular with PT. 09/21/17 11:15 Patient states he wants to go back to rehabilitation in [place]. Blood pressures are stable. Improving with therapies. He is working hard. 09/24/17 11:58 Patient states that he would like to get back home but this he means the rehabilitation center in [place]. He is making progress. He is medically stable and INR is therapeutic. 09/25/17 11:53 INR is therapeutic. Continues to work with therapy and making progress. 09/27/17 13:22 Making progress particularly with physical therapy. Neurologically stable. Blood pressure down a bit and we will monitor. 09/28/17 11:54 Neurologically stable. INR slightly subtherapeutic. Continues to work with therapy and make progress. 10/01/17 11:50 Neurologically stable. INR therapeutic. - Interventions to Obtain Goals PT Treatment Plan: Balance/Proprioception, Functional Activities, Gait Training , Patient/Family Education, Therapeutic Exercise OT Treatment Plan: ADL (Basic Care), Balance Training, Pt./Family Education, Ther. Exercise for ADL
[2017-10-01] MEDS: WARFARIN 5 MG TABLET PO SCH (12:23)
[2017-10-01] MEDS: ATORVASTATIN 20 MG TABLET PO SCH (21:54)
[2017-10-01] MEDS: MELATONIN 1 MG TABLET PO PRN (21:55)
[2017-10-01] MEDS: TRAZODONE 50 MG TABLET PO SCH (21:55)
[2017-10-01] MEDS: MIRTAZAPINE 15 MG TABLET PO SCH (21:55)
[2017-10-02] MEDS: PANTOPRAZOLE 40 MG TABLET PO SCH (06:11)
[2017-10-02] MEDS: SENNA + DOCUSATE TABLET PO SCH ×2 (10:00→21:58)
[2017-10-02] MEDS: ASPIRIN 81 MG CHEWABLE TABLET PO SCH (10:00)
[2017-10-02] MEDS: CYANOCOBALAMIN (B-12) 500mcg TABLET PO SCH (10:00)
[2017-10-02] MEDS: FERROUS GLUCONATE 324 MG TABLET PO SCH (10:00)
[2017-10-02] MEDS: DOCUSATE SODIUM 100 MG CAPSULE PO SCH (10:00)
[2017-10-02] MEDS: GABAPENTIN 300 MG CAPSULE PO SCH ×3 (10:00→21:58)
[2017-10-02] MEDS: TRIAMCINOLONE TP SCH ×5 (10:01→21:57)
[2017-10-02] MEDS: POLYETHYL GLYCOL 3350 17gm PACKET PO SCH (10:01)
[2017-10-02] MEDS: NYSTATIN TP SCH ×5 (10:01→21:57)
--- NOTE | 2017-10-02 11:28 | IRU Progress Note ---
- Subjective/Serverity of Illness Date: 10/02/17 Junior continues to be cooperative with therapy. He is able to perform sit to stand transfers with maximum assistance of 1 person. He denies any chest pain or shortness of breath. His INR is therapeutic. Exam Vital Signs: Temperature 98.0 F 10/02/17 07:43 Pulse Rate 78 10/02/17 07:43 Respiratory Rate 16 10/02/17 07:43 Blood Pressure 108/67 10/02/17 07:43 Pulse Oximetry 91 10/02/17 07:43 Height/Weight/BMI: Height 1.88 m Weight 136.7 kg Body Mass Index 37.6 - Constitutional Present: no acute distress, well nourished, well developed - Routine HEENT Exam Eye: Present: EOMI ENT: Present: mucous membranes moist - Routine Respiratory Exam Present: CTA bilaterally. Absent: wheezes - Routine Cardiovascular Exam Present: S1, S2, murmur, irregularly irregular - Routine Abdominal Exam Present: soft, normoactive bowel sounds, non distended. Absent: tenderness - Routine Extremities Exam Present: normal capillary refill - Routine Skin Exam Present: dry, warm - Routine Neurological Exam Present: alert, oriented X3, CN II-XII intact, motor deficit (again no purposeful movement left upper extremity.) - Routine Psychiatric Exam Present: normal affect IRU A/P (1) CVA (cerebral vascular accident) Qualifiers: CVA mechanism: embolism Precerebral and cerebral artery: middle cerebral artery Laterality of affected vessel: right Qualified Code(s): I63.411 - Cerebral infarction due to embolism of right middle cerebral artery Current visit: Yes Status: Acute Junior seems to be neurologically stable at this time. He is cooperative with therapy. Able to ambulate between 35 and 74 feet with maximum assistance of 1 person. (2) Left hemiparesis Current visit: Yes Status: Acute (3) Paroxysmal atrial fibrillation Current visit: Yes Status: Acute Clinically he seems to remain in atrial fibrillation. His INR is therapeutic. No evidence of bleeding. (4) Hypertension Qualifiers: Hypertension type: essential hypertension Qualified Code(s): I10 - Essential (primary) hypertension Current visit: Yes Status: Chronic (5) Obstructive sleep apnea Current visit: Yes Status: Chronic (6) Situational depression Current visit: Yes Status: Acute DVT Prophylaxis: Coumadin Resuscitation Status: Full Code - Course Hospital Course: Erik Shaw MD: 09/17/17 14:58 Cooperative with therapy. Declines to use nasal CPAP. Blood pressures are controlled. Constipated. 09/18/17 12:38 Slow progress with therapy. Blood pressures look good. Continues to be constipated. 09/20/17 11:42 Started on mirtazapine for depression and sleep. Blood pressure stable. He is having bowel movements. Making significant progress particular with PT. 09/21/17 11:15 Patient states he wants to go back to rehabilitation in [place]. Blood pressures are stable. Improving with therapies. He is working hard. 09/24/17 11:58 Patient states that he would like to get back home but this he means the rehabilitation center in [place]. He is making progress. He is medically stable and INR is therapeutic. 09/25/17 11:53 INR is therapeutic. Continues to work with therapy and making progress. 09/27/17 13:22 Making progress particularly with physical therapy. Neurologically stable. Blood pressure down a bit and we will monitor. 09/28/17 11:54 Neurologically stable. INR slightly subtherapeutic. Continues to work with therapy and make progress. 10/01/17 11:50 Neurologically stable. INR therapeutic. 10/02/17 11:28 Continues to work with therapy, demonstrating slow progress. INR therapeutic. - Interventions to Obtain Goals PT Treatment Plan: Balance/Proprioception, Functional Activities, Gait Training , Patient/Family Education, Therapeutic Exercise OT Treatment Plan: ADL (Basic Care), Balance Training, Pt./Family Education, Ther. Exercise for ADL
[2017-10-02] MEDS: WARFARIN 5 MG TABLET PO SCH (12:19)
[2017-10-02] MEDS: MELATONIN 1 MG TABLET PO PRN (21:58)
[2017-10-02] MEDS: ATORVASTATIN 20 MG TABLET PO SCH (21:58)
[2017-10-02] MEDS: MIRTAZAPINE 15 MG TABLET PO SCH (21:58)
[2017-10-02] MEDS: TRAZODONE 50 MG TABLET PO SCH (21:58)
[2017-10-02] MEDS: ACETAMINOPHEN 325 MG TABLET PO PRN (21:59)
[2017-10-03] MEDS: PANTOPRAZOLE 40 MG TABLET PO SCH (05:49)
[2017-10-03] MEDS: ASPIRIN 81 MG CHEWABLE TABLET PO SCH (08:32)
[2017-10-03] MEDS: GABAPENTIN 300 MG CAPSULE PO SCH ×3 (08:32→20:18)
[2017-10-03] MEDS: CYANOCOBALAMIN (B-12) 500mcg TABLET PO SCH (08:32)
[2017-10-03] MEDS: DOCUSATE SODIUM 100 MG CAPSULE PO SCH (08:32)
[2017-10-03] MEDS: FERROUS GLUCONATE 324 MG TABLET PO SCH (08:33)
[2017-10-03] MEDS: POLYETHYL GLYCOL 3350 17gm PACKET PO SCH (08:33)
[2017-10-03] MEDS: NYSTATIN TP SCH ×4 (08:33→23:14)
[2017-10-03] MEDS: SENNA + DOCUSATE TABLET PO SCH ×2 (08:33→20:19)
[2017-10-03] MEDS: TRIAMCINOLONE TP SCH ×4 (08:33→23:14)
[2017-10-03] MEDS: ACETAMINOPHEN 325 MG TABLET PO PRN ×3 (08:36→20:17)
[2017-10-03] MEDS: WARFARIN 5 MG TABLET PO SCH (12:40)
--- NOTE | 2017-10-03 13:47 | Progress Note ---
- Date 10/03/17 Subjective: F/U: left hemiparesis, a-fib Junior is seen today while sitting in his wheelchair in his room with family present. He denies any current complaints or concerns. No chest pain, shortness of breath, abdominal pain, nausea, vomiting or dysuria. Therapy reports that he has been doing well and making slow gains. He is able to ambulate between 35-75 feet with maximum 1 person assistance. Appetite is stable and bowels are moving. Objective Vital signs: Temperature 97.6 F 10/03/17 08:00 Pulse Rate 90 10/03/17 11:45 Respiratory Rate 12 10/03/17 08:00 Blood Pressure 144/71 H 10/03/17 11:45 Pulse Oximetry 100 10/03/17 11:45 Height/Weight/BMI: Height 6 ft 2 in Weight 294 lb 12.128 oz Body Mass Index 37.6 Comments: Sitting in wheelchair in room with family present. - Constitutional Present: no acute distress, well nourished, well developed, morbidly obese, cooperative - Routine HEENT Exam Head: Present: normocephalic, atraumatic Eye: Present: PERRL. Absent: conjunctival icterus ENT: Present: mucous membranes moist, oropharynx clear - Routine Respiratory Exam Present: CTA bilaterally. Absent: respiratory distress, wheezes - Routine Cardiovascular Exam Present: S1, S2, murmur, irregularly irregular - Routine Abdominal Exam Present: soft, normoactive bowel sounds, non tender - Routine Extremities Exam Present: pulses intact, normal capillary refill - Routine Musculoskeletal Exam Musculoskeletal: Present: no clubbing or cyanosis - Routine Skin Exam Present: dry, warm Comments: Afebrile. - Routine Neurological Exam Present: alert, hearing grossly intact, normal speech - Routine Lymphatic Exam Lymphatic: Absent: lymphedema - Routine Psychiatric Exam Present: cooperative Results - Labs CBC & Chem 7: 10/01/17 04:29 09/27/17 04:10 Microbiology Results: Microbiology 09/14/17 16:16 Urine, Voided (Cc/notcc) Urine Culture - Final Escherichia coli Assessment and Plan (1) Left hemiparesis Current visit: Yes Status: Acute (2) CVA (cerebral vascular accident) Current visit: Yes Status: Acute Assessment and Plan: Impression: E. coli UTI (POA)- Keflex completed Situational depression L shoulder/arm pain - 09/19/17 Large right MCA stroke (05/11/17) Left hemiparesis Dysphagia, resolved Paroxysmal Atrial Fib Chronic anticoagulation on Warfarin HTN LUCIE Anemia, ARMANDO, B12 deficiency Plan - 10/03/17 Overall, doing well and medically stable. Making slow gains with therapy. Continue to encourage participation in therapies. Pharmacy to continue with warfarin therapy. INR stable and therapeutic. Recheck labs in AM to monitor blood counts, electrolytes and renal function. DVT Prophylaxis: Coumadin GI Prophylaxis: Protonix Resuscitation Status: Full Code - Time spent with patient Time with patient PN: 25 minutes - Physician Narrative Physician: Bertha Lopez MD Narrative: Date: 10/03/17 Time: 1343 Hospital Course Summary Disclaimer: The visit summary below is not to be considered part of the above Progress Note. 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 Patient is very motivated to return to walking and self care. Continue ASA, Warfarin due to atrial fib-chronic. Metoprolol for HTN and weight control. Continue CPAP for LUCIE. s/p PEG tube removal, dysphagia has resolved. Continue oral supplements for anemia, and repeat baseline labs in AM. Continue supportive care. If additional support at home is needed, may be able to refer to [place] for 's benefits as he served in the [employer]. Thank you for the consult. We will follow this pt with you. 09/17/2017 E. coli UTI. Continue Keflex (started 09/16/17). Sensitivities reviewed. INR therapeutic. BP under good control. 09/19/17 On day #4 of cephalexin for UTI. No sxs. Start mirtazapine for situational depression. Tylenol PRN for L shoulder/arm pain. If consistently complains, proceed with imaging. 09/22/17 Cephalexin course completed for E. coli UTI. INR supratherapeutic today at 3.23. Oral intake appears to be improving since starting mirtazapine. Did not complain of shoulder pain today. 09/30/17 He is feeling well. Slow gains in ambulation. Mood is good. Weight has been stable. Pharmacy following Warfarin. Repeat CBC this week due to chronic anemia. BP looks good. 10/03/17 Overall, doing well and medically stable. Making slow gains with therapy. Continue to encourage participation in therapies. Pharmacy to continue with warfarin therapy. INR stable and therapeutic. Recheck labs in AM to monitor blood counts, electrolytes and renal function.
[2017-10-03] MEDS: ATORVASTATIN 20 MG TABLET PO SCH (20:18)
[2017-10-03] MEDS: MIRTAZAPINE 15 MG TABLET PO SCH (20:18)
[2017-10-03] MEDS: TRAZODONE 50 MG TABLET PO SCH (20:19)
[2017-10-04] MEDS: PANTOPRAZOLE 40 MG TABLET PO SCH (06:25)
--- NOTE | 2017-10-04 08:15 | Pharmacy Consult ---
Pharmacy Consult-Warfarin - Laboratory Information 09/14/17 09/15/17 09/15/17 13:31 04:10 04:10 Hgb 9.8 L Hct 31.4 L INR 4.34 H 4.17 H 09/16/17 09/17/17 09/18/17 11:22 04:48 04:14 Hgb Hct INR 2.69 H 2.13 H 1.97 H 09/19/17 09/19/17 09/20/17 05:13 05:13 04:07 Hgb 10.4 L Hct 33.1 L INR 1.84 H 2.07 H 09/21/17 09/22/17 09/23/17 04:50 08:06 04:18 Hgb Hct INR 2.39 H 3.23 H 2.94 H 09/24/17 09/25/17 09/26/17 04:48 04:14 05:24 Hgb Hct INR 2.34 H 2.46 H 2.30 H 09/27/17 09/27/17 09/28/17 04:10 04:10 05:15 Hgb 9.9 L Hct 31.3 L INR 2.26 H 1.80 H 09/29/17 09/30/17 10/01/17 07:23 06:41 04:29 Hgb 10.7 L Hct 32.0 L INR 2.0 H 2.40 H 10/01/17 10/04/17 10/04/17 04:29 04:29 04:29 Hgb 9.8 L Hct 30.7 L INR 2.50 H 2.65 H - Consult Information COUMADIN CONSULT (Recurring): INR now 2.65 from 2.5 after 3 days of Warfarin 5 mg. Will give another 5 mg dose today and recheck the INR in the morning to see if there is a trend of it increasing on the 5 mg dose or if it is now stable. Thank you. Sarah Garcia, TiffanyD
[2017-10-04] MEDS: POLYETHYL GLYCOL 3350 17gm PACKET PO SCH (08:44)
[2017-10-04] MEDS: CYANOCOBALAMIN (B-12) 500mcg TABLET PO SCH (08:45)
[2017-10-04] MEDS: ASPIRIN 81 MG CHEWABLE TABLET PO SCH (08:45)
[2017-10-04] MEDS: DOCUSATE SODIUM 100 MG CAPSULE PO SCH (08:45)
[2017-10-04] MEDS: FERROUS GLUCONATE 324 MG TABLET PO SCH (08:45)
[2017-10-04] MEDS: GABAPENTIN 300 MG CAPSULE PO SCH ×3 (08:45→21:31)
[2017-10-04] MEDS: SENNA + DOCUSATE TABLET PO SCH ×2 (08:46→21:31)
[2017-10-04] MEDS: TRIAMCINOLONE TP SCH ×4 (08:46→21:31)
[2017-10-04] MEDS: NYSTATIN TP SCH ×4 (08:46→21:31)
--- NOTE | 2017-10-04 11:02 | IRU Progress Note ---
- Subjective/Serverity of Illness Date: 10/04/17 Junior seems more subdued today. He does admit that he is discouraged at the present time. Does have movement in the left lower extremity. Unfortunately he had to be helped down to the floor yesterday as he was ambulating with assistance. No injury or trauma was identified. He denies any pains at the present time. Left upper extremity remains without meaningful movement. The patient denies any chest pain or shortness of breath. He reports his bowels are moving adequately. With regard to his depression he is on mirtazapine 15 mg at the present time. Exam Vital Signs: Temperature 97.6 F 10/04/17 08:00 Pulse Rate 80 10/04/17 08:00 Respiratory Rate 18 10/04/17 08:00 Blood Pressure 94/55 10/04/17 08:00 Pulse Oximetry 94 10/04/17 08:00 Height/Weight/BMI: Height 1.88 m Weight 133.7 kg Body Mass Index 37.6 - Constitutional Present: no acute distress, well nourished, well developed, obese - Routine HEENT Exam Head: Present: normocephalic Eye: Present: EOMI ENT: Present: mucous membranes moist, oropharynx clear - Routine Respiratory Exam Present: CTA bilaterally. Absent: wheezes - Routine Cardiovascular Exam Present: S1, S2, irregularly irregular. Absent: murmur - Routine Abdominal Exam Present: soft, normoactive bowel sounds, non distended. Absent: tenderness - Routine Extremities Exam Present: normal capillary refill - Routine Skin Exam Present: dry, warm - Routine Neurological Exam Present: alert, oriented X3, motor deficit (LUE not moving. No change.). Absent : CN II-XII intact - Routine Psychiatric Exam Present: cooperative, depressed. Absent: good insight, good judgment IRU A/P (1) CVA (cerebral vascular accident) Qualifiers: CVA mechanism: embolism Precerebral and cerebral artery: middle cerebral artery Laterality of affected vessel: right Qualified Code(s): I63.411 - Cerebral infarction due to embolism of right middle cerebral artery Current visit: Yes Status: Acute Patient's neurologic status is reassessed and unchanged. Left upper extremity not moving. Increased tone as before. Left lower extremity does provide some strength but reduced from the right side. This has been stable. (2) Left hemiparesis Current visit: Yes Status: Acute (3) Paroxysmal atrial fibrillation Current visit: Yes Status: Acute Difficult to hear his heart sounds but he appears to be in an irregular rhythm. Remains on warfarin with therapeutic INR at 2.65. (4) Hypertension Qualifiers: Hypertension type: essential hypertension Qualified Code(s): I10 - Essential (primary) hypertension Current visit: Yes Status: Chronic (5) Obstructive sleep apnea Current visit: Yes Status: Chronic (6) Situational depression Current visit: Yes Status: Acute DVT Prophylaxis: Coumadin Resuscitation Status: Full Code - Course Hospital Course: Erik Shaw MD: 09/17/17 14:58 Cooperative with therapy. Declines to use nasal CPAP. Blood pressures are controlled. Constipated. 09/18/17 12:38 Slow progress with therapy. Blood pressures look good. Continues to be constipated. 09/20/17 11:42 Started on mirtazapine for depression and sleep. Blood pressure stable. He is having bowel movements. Making significant progress particular with PT. 09/21/17 11:15 Patient states he wants to go back to rehabilitation in [place]. Blood pressures are stable. Improving with therapies. He is working hard. 09/24/17 11:58 Patient states that he would like to get back home but this he means the rehabilitation center in [place]. He is making progress. He is medically stable and INR is therapeutic. 09/25/17 11:53 INR is therapeutic. Continues to work with therapy and making progress. 09/27/17 13:22 Making progress particularly with physical therapy. Neurologically stable. Blood pressure down a bit and we will monitor. 09/28/17 11:54 Neurologically stable. INR slightly subtherapeutic. Continues to work with therapy and make progress. 10/01/17 11:50 Neurologically stable. INR therapeutic. 10/02/17 11:28 Continues to work with therapy, demonstrating slow progress. INR therapeutic. 10/04/17 11:02 Neurologically unchanged. INR remains therapeutic. - Interventions to Obtain Goals PT Treatment Plan: Balance/Proprioception, Functional Activities, Gait Training , Patient/Family Education, Therapeutic Exercise OT Treatment Plan: ADL (Basic Care), Balance Training, Pt./Family Education, Ther. Exercise for ADL
[2017-10-04] MEDS: WARFARIN 5 MG TABLET PO SCH (12:22)
--- NOTE | 2017-10-04 13:09 | IRU Team Meeting ---
IRU Team Meeting - Nursing Bladder Assistive Devices Utilized:: Urinal, Absorbent Pad Bladder Management Level of Assist: Total Assistance Bladder Frequency of Accidents: 1 accident this shift Bowel Assistive Devices Utilized:: Medication, Absorbent Pad Bowel Management Level of Assist: Total Assistance Bowel Frequency of Accidents: 1 accident this shift Number of Bowel Accidents: 1 Vital Signs: Vital Signs - 24 hr 10/03/17 15:59 10/03/17 19:58 10/04/17 08:00 Temperature 97.7 F 97.7 F 97.6 F Pulse Rate 80 85 80 Respiratory Rate 18 Blood Pressure 118/68 126/65 94/55 Pulse Oximetry 100 96 94 Current Medications: Acetaminophen (Tylenol) 650 mg PO Q5H PRN PRN Reason: Pain Last Admin: 10/03/17 20:17 Dose: 650 mg Albuterol Sulfate (Proventil Neb (0.083%)) 2.5 mg AEROSOL Q6H PRN PRN Reason: Shortness of air/wheezing Aspirin (Asa) 81 mg PO DAILY [facility] Last Admin: 10/04/17 08:45 Dose: 81 mg Atorvastatin Calcium (Lipitor) 20 mg PO HS [facility] Last Admin: 10/03/17 20:18 Dose: 20 mg Benzocaine (Preparation H) 1 applic TOP Q4H PRN PRN Reason: Hemorrhoids Bisacodyl (Dulcolax) 10 mg RECTALLY DAILY PRN PRN Reason: Constipation Last Admin: 09/18/17 14:31 Dose: 10 mg Cyanocobalamin (Vit. B-12) 1,000 mcg PO DAILY [facility] Last Admin: 10/04/17 08:45 Dose: 1,000 mcg Docusate Sodium (Colace) 100 mg PO DAILY [facility] Last Admin: 10/04/17 08:45 Dose: 100 mg Ferrous Gluconate (Fergon) 324 mg PO WB [facility] Last Admin: 10/04/17 08:45 Dose: 324 mg Gabapentin (Neurontin) 300 mg PO TID [facility] Last Admin: 10/04/17 08:45 Dose: 300 mg Magnesium Hydroxide (Mom) 30 ml PO DAILY PRN PRN Reason: Constipation Last Admin: 09/23/17 17:18 Dose: 30 ml Melatonin (Melatonin) 3 mg PO HS PRN PRN Reason: Sleep Last Admin: 10/02/17 21:58 Dose: 3 mg Metoprolol Tartrate (Lopressor) 25 mg PO BIDWM [facility] Last Admin: 10/04/17 08:45 Dose: 25 mg Mirtazapine (Remeron) 15 mg PO HS [facility] Last Admin: 10/03/17 20:18 Dose: 15 mg Nystatin/Triamcinolone Acetonide (Mycolog Ii) 1 applic TP QID [facility] Last Admin: 10/04/17 12:23 Dose: 1 applic Pantoprazole Sodium (Protonix Tab) 40 mg PO ACB [facility] Last Admin: 10/04/17 06:25 Dose: 40 mg Polyethylene Glycol (Miralax) 17 gm PO DAILY [facility] Last Admin: 10/04/17 08:44 Dose: 17 gm Senna/Docusate Sodium (Senna Plus Tablet) 1 tab PO BID [facility] Last Admin: 10/04/17 08:46 Dose: 1 tab Trazodone HCl (Desyrel) 50 mg PO HS [facility] Last Admin: 10/03/17 20:19 Dose: 50 mg Warfarin Sodium (Coumadin Protocol) 0 MC NOTE [facility] Warfarin Sodium (Coumadin) 5 mg PO NOON [facility] Last Admin: 10/04/17 12:22 Dose: 5 mg Current Medical Issues: CVA, hypertension, atrial fibrillation Comments: I certify that I personally led the interdisciplinary team meeting and agree with comments, barriers and goals indicated. Team meeting was held in the patient's room with the patient and the following family members present: Patient's spouse, patient's son Mr. 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 He is cooperative with therapy but has difficulty carryover from one day to the next. His appetite is adequate. His blood pressures are controlled and his INR is therapeutic. - Physical Therapy Bed, Chair, Wheelchair Transfer Assist: Maximal Assistance, 2 or More Person Assist Ambulation Ability: Total Assistance, 2 or More Person Assist Ambulation Distance: 41 Wheelchair Propulsion Ability: Stand By Assist/Supervision Wheelchair Propulsion Distance: 483 Stair Climbing Ability: Patient Unsafe/Unable Car Transfer Ability: Patient Unsafe/Unable Comments: He is cooperative with therapy but requires total assistance for ambulation. Requires assistance of 2 or more persons. He requires maximum verbal cues for sequencing and set up during transfers. Has reduced coordination with ambulation. - Occupational Therapy Eating Ability: Independent Grooming Ability: Independent Bathing Ability: Moderate Assistance Upper Body Dressing Ability: Moderate Assistance Lower Body Dressing Ability: Moderate Assistance Tub Transfer Assist: Patient Unsafe/Unable Toileting Assist: Total Assistance Toilet Transfer Assist: Maximal Assistance, 1 Person Assist Comments: He is cooperative with occupational therapy but limited by cognition. He is unable to recall safety education from one day to the next. He is at increased risk for falls. - Goals Physical Therapy Goals: 09/27/17, 10/04/17. 1.) Ambulate 50 feet with minimal assistance and no LOB. - not met. 2.) Transfers requiring minimal assistance. - not met, requires moderate assistance. Occupational Therapy Goals: OT goals 09/20/17, 09/27/17, 10/04/17: 1.) Upper body dressing with supervision.- continue (Pt. currently requires moderate assistance ). 2.) Lower body dressing with minimal assistance. - continue (Pt. currently requires moderate assistance). 3.) Toilet transfer with moderate assistance. - continue ( Pt. currently requires maximal assistance) - Barriers to Discharge Barriers to Attaining Goals: Balance (to address reduced balance, and attention directed at proprioceptive training and balance training.), Comprehension ( education, repeated verbal cues and repetitive activities are offered to address cognition issues.), Other (patient displays reduced safety and reduced coordination. To address, additional education provided for safety and increased coordination activities are provided.) - Care Plan Anticipated Length of Stay (days): 1 Anticipated DC Destination: Retirement/Facility I have led this team conference and agree with the plan. Interventions/Goals: Patient is displaying reduced carryover from one day to the next. He is not making significant progress at the present time. Arrangements are made to transfer to nursing facility as patient is not safe no stable to return home at this time from a functional standpoint. Medically he is stable.
[2017-10-04] MEDS: ACETAMINOPHEN 325 MG TABLET PO PRN (20:06)
[2017-10-04] MEDS: ATORVASTATIN 20 MG TABLET PO SCH (21:31)
[2017-10-04] MEDS: TRAZODONE 50 MG TABLET PO SCH (21:31)
[2017-10-04] MEDS: MIRTAZAPINE 15 MG TABLET PO SCH (21:31)
[2017-10-04 22:18] VITALS: RESP 18; O2SAT 98
[2017-10-05] MEDS: PANTOPRAZOLE 40 MG TABLET PO SCH (06:26)
--- NOTE | 2017-10-05 07:46 | Pharmacy Consult ---
Pharmacy Consult-Warfarin - Laboratory Information 09/14/17 09/15/17 09/15/17 13:31 04:10 04:10 Hgb 9.8 L Hct 31.4 L INR 4.34 H 4.17 H 09/16/17 09/17/17 09/18/17 11:22 04:48 04:14 Hgb Hct INR 2.69 H 2.13 H 1.97 H 09/19/17 09/19/17 09/20/17 05:13 05:13 04:07 Hgb 10.4 L Hct 33.1 L INR 1.84 H 2.07 H 09/21/17 09/22/17 09/23/17 04:50 08:06 04:18 Hgb Hct INR 2.39 H 3.23 H 2.94 H 09/24/17 09/25/17 09/26/17 04:48 04:14 05:24 Hgb Hct INR 2.34 H 2.46 H 2.30 H 09/27/17 09/27/17 09/28/17 04:10 04:10 05:15 Hgb 9.9 L Hct 31.3 L INR 2.26 H 1.80 H 09/29/17 09/30/17 10/01/17 07:23 06:41 04:29 Hgb 10.7 L Hct 32.0 L INR 2.0 H 2.40 H 10/01/17 10/04/17 10/04/17 04:29 04:29 04:29 Hgb 9.8 L Hct 30.7 L INR 2.50 H 2.65 H 10/05/17 05:30 Hgb Hct INR 2.40 H - Consult Information We will continue warfarin 5mg po at noon. INR remains stable between 2 and 3. Resume 2 x weekly INR's.
[2017-10-05 08:25] VITALS: BP 113/68; PULSE 81; TEMP 97.8
[2017-10-05] MEDS: CYANOCOBALAMIN (B-12) 500mcg TABLET PO SCH (08:47)
[2017-10-05] MEDS: POLYETHYL GLYCOL 3350 17gm PACKET PO SCH (08:47)
[2017-10-05] MEDS: SENNA + DOCUSATE TABLET PO SCH (08:47)
[2017-10-05] MEDS: ASPIRIN 81 MG CHEWABLE TABLET PO SCH (08:47)
[2017-10-05] MEDS: GABAPENTIN 300 MG CAPSULE PO SCH (08:47)
[2017-10-05] MEDS: FERROUS GLUCONATE 324 MG TABLET PO SCH (08:48)
[2017-10-05] MEDS: DOCUSATE SODIUM 100 MG CAPSULE PO SCH (08:48)
[2017-10-05] MEDS: NYSTATIN TP SCH ×2 (08:49→11:23)
[2017-10-05] MEDS: TRIAMCINOLONE TP SCH ×2 (08:49→11:23)
--- NOTE | 2017-10-05 10:42 | IRU Progress Note ---
- Subjective/Serverity of Illness Date: 10/05/17 Junior continues to work with therapy although progress is variable. Some days he recalls previous educational efforts and some days he does not. Does require verbal cueing. Efforts are underway at this time to provide a safe discharge plan for him. Have discussed with critical care nurse practitioner on several occasions. Medically he seems stable. His blood pressure is stable. His INR is therapeutic. He denies dyspnea or chest pain. Exam Vital Signs: Temperature 97.8 F 10/05/17 08:00 Pulse Rate 81 10/05/17 08:00 Respiratory Rate 18 10/05/17 08:00 Blood Pressure 113/68 10/05/17 08:00 Pulse Oximetry 98 10/05/17 08:00 Height/Weight/BMI: Height 1.88 m Weight 133.7 kg Body Mass Index 37.6 - Constitutional Present: no acute distress, well nourished, well developed, obese - Routine HEENT Exam Eye: Present: EOMI ENT: Present: mucous membranes moist, oropharynx clear - Routine Respiratory Exam Present: CTA bilaterally. Absent: wheezes - Routine Cardiovascular Exam Present: S1, S2, irregularly irregular. Absent: murmur - Routine Abdominal Exam Present: soft, normoactive bowel sounds, non distended. Absent: tenderness - Routine Extremities Exam Present: normal capillary refill - Routine Skin Exam Present: dry, warm - Routine Neurological Exam Present: alert, oriented X3, CN II-XII intact, motor deficit (no change with left upper extremity intentional movement, and reduced strength left lower extremity.) - Routine Psychiatric Exam Present: cooperative, depressed. Absent: good insight, good judgment Comments: Evidence of reduced memory/cognition deficits. IRU A/P (1) CVA (cerebral vascular accident) Qualifiers: CVA mechanism: embolism Precerebral and cerebral artery: middle cerebral artery Laterality of affected vessel: right Qualified Code(s): I63.411 - Cerebral infarction due to embolism of right middle cerebral artery Current visit: Yes Status: Acute Neurologic changes remain stable. Cooperative with therapy but functional gain is minimal and is plateauing. (2) Left hemiparesis Current visit: Yes Status: Acute (3) Paroxysmal atrial fibrillation Current visit: Yes Status: Acute INR is therapeutic. (4) Hypertension Qualifiers: Hypertension type: essential hypertension Qualified Code(s): I10 - Essential (primary) hypertension Current visit: Yes Status: Chronic (5) Obstructive sleep apnea Current visit: Yes Status: Chronic (6) Situational depression Current visit: Yes Status: Acute DVT Prophylaxis: Coumadin Resuscitation Status: Full Code - Course Hospital Course: Erik Shaw MD: 09/17/17 14:58 Cooperative with therapy. Declines to use nasal CPAP. Blood pressures are controlled. Constipated. 09/18/17 12:38 Slow progress with therapy. Blood pressures look good. Continues to be constipated. 09/20/17 11:42 Started on mirtazapine for depression and sleep. Blood pressure stable. He is having bowel movements. Making significant progress particular with PT. 09/21/17 11:15 Patient states he wants to go back to rehabilitation in [place]. Blood pressures are stable. Improving with therapies. He is working hard. 09/24/17 11:58 Patient states that he would like to get back home but this he means the rehabilitation center in [place]. He is making progress. He is medically stable and INR is therapeutic. 09/25/17 11:53 INR is therapeutic. Continues to work with therapy and making progress. 09/27/17 13:22 Making progress particularly with physical therapy. Neurologically stable. Blood pressure down a bit and we will monitor. 09/28/17 11:54 Neurologically stable. INR slightly subtherapeutic. Continues to work with therapy and make progress. 10/01/17 11:50 Neurologically stable. INR therapeutic. 10/02/17 11:28 Continues to work with therapy, demonstrating slow progress. INR therapeutic. 10/04/17 11:02 Neurologically unchanged. INR remains therapeutic. 10/05/17 10:41 Patient remains medically stable. INR is therapeutic. Safe discharge planning progress. - Interventions to Obtain Goals PT Treatment Plan: Balance/Proprioception, Functional Activities, Gait Training , Patient/Family Education, Therapeutic Exercise OT Treatment Plan: ADL (Basic Care), Balance Training, Pt./Family Education, Ther. Exercise for ADL
--- NOTE | 2017-10-05 11:13 | Extended Care Facility Orders ---
Admission Orders Admit to:: ICF, Other Allergies/Adverse Reactions: Allergies No Known Allergies Allergy (Verified 09/14/17 12:06) Admitting Diagnosis: Post stroke Admitting Physician: Reginald Landaverde MD Attending Physician: Reginald Landaverde MD Code Status: Full Code Anticiapted Length of Stay: 30 days or less Rehab Potential: fair Rehab Prognosis: fair Diet: 09/14/17 Dinner Regular Diet [DIET] Diet Modifications: Regular Diet [DIET] Diet Modifications: Wound/Incision Care: N/A May use Facility Protocol or Standing Orders: Yes May have flu vaccine: Yes Evaluations/Treatment: PT, OT Half-Way Certification: I certify that SNF services are not required. - Additional Information In Event of Arrest: Start CPR,call 911,send patient to the ER Resident is Aware of Diagnosis: Yes Laboratory/Radiology: Please obtain INR on Sunday with results to Dr. Surinder Henriquez. Referrals: Surinder Henriquez MD [Physician] - (Dr. Jody Henriquez on 10/11/17 at 1:10 pm for Hosp. follow-up. . If unable to make appt. call the office to reschedule. [facility] [address] [id number])
[2017-10-05] MEDS: WARFARIN 5 MG TABLET PO SCH (11:22)
--- NOTE | 2017-10-05 11:22 | Progress Note ---
Progress Note: I was just notified that there was some blood noted at the tip of the penis. This was just noted a few minutes ago. Patient is on warfarin and the INR is therapeutic. He denies any pain or burning. He was able to urinate without difficulty 15 minutes ago. In discussion with the nurse, the patient was using the urinal earlier this morning and had difficulty getting the penis out of the urinal possibly resulting in some mild trauma. I personally inspected the penis and there is some redness noted at the urethra itself. No other trauma is identified. retirement has sent transportation which should be here in about 10 minutes. This is from [place]. In view of the fact that he was able to urinate without difficulty 15 minutes ago, is afebrile, and is on Coumadin, I think it is reasonable to let him go to the long term today. We'll communicate with the long term the situation and have them monitor his urine output.
--- NOTE | 2017-10-05 11:54 | Discharge Summary ---
Discharge Information Date of admission: 09/14/17 11:30 Anticipated date of discharge: 10/05/17 Attending Physician: Reginald Landaverde MD Consults: 09/14/17 13:21 Physician Consult [CONS] Routine Consulting Provider: [facility] Hospitalists Reason For Exam: medical management Ordering Provider has Notified Family Development Specialist: No - Discharge Diagnosis (1) CVA (cerebral vascular accident) Status: Acute (2) Left hemiparesis Status: Acute (3) Paroxysmal atrial fibrillation Status: Acute (4) Hypertension Status: Chronic (5) Obstructive sleep apnea Status: Chronic (6) Situational depression Status: Acute 1. Status post right hemispheric cardioembolic stroke (infarction) affecting right temporal lobe and insular cortex. This resulted in left carl-neglect hemianopsia, left arm weakness, left leg weakness and initially dysphagia. 2. Paroxysmal atrial fibrillation requiring warfarin anticoagulation 3. Benign essential hypertension 4. Obstructive sleep apnea (patient refuses to use nasal CPAP) 5. Anemia of chronic disease 6. History of gastric ulcers noted on EGD at time of placement of PEG tube 7. 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 - Laboratory Labs: 10/04/17 04:29 10/04/17 04:29 - Microbiology Microbiology 09/14/17 16:16 Urine, Voided (Cc/notcc) Urine Culture - Final Escherichia coli History of Present Illness HPI: Mr. Lee is a very pleasant 67-year-old male who presented with sudden onset of left sided weakness and gurgling sensations in May 2017 in [place]. He possibly fell out of bed at home. He was brought to the emergency department by [facility] to [facility] on 05/11/2017. Since onset of stroke was unclear, he was not felt to be a candidate for TPA. He was noted to have atrial fibrillation. He was dismissed from [facility] on 05/22/2017 after being treated for his acute cerebrovascular accident involving the right cerebral hemisphere with right temporal lobe and insular cortex with left carl-neglect hemianopsia left arm weakness and dysphagia. He also had Escherichia coli bacteremia, hypertension, anemia secondary to iron deficiency and B12 deficiency, obstructive sleep apnea. At that location brain MRI on February 08 showed the acute cortical infarct involving the right cerebral hemisphere. No hemorrhage was seen. Carotid ultrasound on May 11 revealed no significant stenosis hemodynamically. Echocardiogram on 05/11/17 was a limited study demonstrating moderate left atrial but severe right atrial and mild right ventricular enlargement. Ejection fraction was 60-65% with underlying rhythm being atrial fibrillation. Bubble test was negative. Overnight oximetry showed significant hypoxemia. He did require PEG tube placement on May 15. He was started on warfarin for his atrial fibrillation. It was recommended that he continue nasal CPAP for obstructive sleep apnea but the patient declined to use it due to severe claustrophobia. He was transferred to intermediate at the time of dismissal from [facility]. He was at [facility] and rehabilitation. He underwent therapy at that location. His ability to swallow improved and the PEG tube was able to be removed. He started developing increasing muscle activation in the left lower extremity as well as improved sensation. For that reason consultation was placed to acute inpatient rehabilitation where he was transferred on 09/14/2017. Hospital Course This is a general summary of the patient's hospital course. For more details refer to the complete medical record. He was admitted to acute inpatient [facility] at [facility] on . He was followed by the hospitalist service as well as by Dr. Landaverde. His vital signs remain stable with blood pressures generally controlled around 120-125 systolic. He remained in atrial fibrillation but with a controlled ventricular response. His INR was monitored and pharmacy adjusted his warfarin. His INR on the day of dismissal (10/05/2017) is 2.40 on warfarin 5 mg daily. He was noted to have a urinary tract infection at the time of admission and was treated with cephalexin 500 mg 3 times daily from September 16 through September 21 for an Escherichia coli UTI. Medically he continued to be safe for swallowing. He was able to eat and drink adequately. Left upper extremity remained in a sling and displayed no intentional movement. It did display increased tone. Left lower extremity showed reduced strength but he was able to ambulate. Junior did display either depression or evidence of pseudo-bulbar palsy. He was treated with mirtazapine in this regard. Consideration was given to Nuedexta although, since he would not likely be able to afford this as an outpatient it was not administered here. Approximately 15 minutes prior to his transportation arriving from [place], the patient was noted to have a very small amount of bleeding on his underwear. The nurse initially and then I subsequently evaluated the patient's urethra. There was a small amount of blood noted. According to the nurse, the patient was using his urinal this morning and had difficulty removing the penis. There may have been some trauma noted. The patient states that there is no discomfort present in the penis at present and no lesions are identified. He states that he can urinate without difficulty and indeed 15 minutes prior to my examination was able to urinate without difficulty. The patient is on warfarin with therapeutic INR. It is likely that he has experienced some mild trauma of the urethra but is able to urinate without difficulty. Receiving facility will be notified of this to keep an eye on his urination. He is felt to be stable for dismissal. The following levels of functional competence are to be considered preliminary information. The reader is encouraged to refer to actual therapy notes and reports for specific details. The patient was followed by physical therapy while on acute inpatient rehabilitation. At the conclusion of his stay, the following functional competencies were identified: He requires total assistance of 2 persons to transfer. His ability to carry over from one dated the next is quite variable. Educational attempts are continuing to be required along with verbal cues. He is able to ambulate with a hemiwalker with total assistance of 2 or more persons 70 feet. He is not stable to ambulate on his own and requires close monitoring. His left upper extremity continues to not be functional in his left lower extremity is weak but able to be used. The patient was followed by occupational therapy while on acute inpatient rehabilitation. At the conclusion of his stay, the following functional competencies were identified: The patient is able to bathe with moderate assistance. Upper and lower body dressing requires moderate assistance. He tended to plateau toward the latter portion of his stay. It was felt that he had reached his maximum benefit from acute inpatient rehabilitation and he was transferred to long-term care at [facility]. It is anticipated he will be able to continue to receive PT and OT with Part B benefits from Medicare. His urinary situation will be reviewed with the receiving facility so they can monitor this. Hospital course: Impression: Large right MCA stroke (05/11/17) Left hemiparesis Dysphagia, resolved Paroxysmal Atrial Fib Chronic anticoagulation on Warfarin HTN LUCIE Anemia, ARMANDO, B12 deficiency Plan: 09/14/2017 Agree with IRU admission for further therapy. Patient is very motivated to return to walking and self care. Continue ASA, Warfarin due to atrial fib-chronic. Metoprolol for HTN and weight control. Continue CPAP for LUCIE. s/p PEG tube removal, dysphagia has resolved. Continue oral supplements for anemia, and repeat baseline labs in AM. Continue supportive care. If additional support at home is needed, may be able to refer to [place] for 's benefits as he served in the [employer]. Thank you for the consult. We will follow this pt with you. 09/17/2017 E. coli UTI. Continue Keflex (started 09/16/17). Sensitivities reviewed. INR therapeutic. BP under good control. 09/19/17 On day #4 of cephalexin for UTI. No sxs. Start mirtazapine for situational depression. Tylenol PRN for L shoulder/arm pain. If consistently complains, proceed with imaging. 09/22/17 Cephalexin course completed for E. coli UTI. INR supratherapeutic today at 3.23. Oral intake appears to be improving since starting mirtazapine. Did not complain of shoulder pain today. 09/30/17 He is feeling well. Slow gains in ambulation. Mood is good. Weight has been stable. Pharmacy following Warfarin. Repeat CBC this week due to chronic anemia. BP looks good. 10/03/17 Overall, doing well and medically stable. Making slow gains with therapy. Continue to encourage participation in therapies. Pharmacy to continue with warfarin therapy. INR stable and therapeutic. Recheck labs in AM to monitor blood counts, electrolytes and renal function. Time spent with patient: greater than 35 minutes Resuscitation Status: Full Code Discharge Plan - Med Rec/Dispo Referrals/Follow Up: Surinder Henriquez MD [Physician] - (Dr. Jody Henriquez on 10/11/17 at 1:10 pm for Hosp. follow-up. . If unable to make appt. call the office to reschedule. [facility] [address] [id number]) Prescriptions: New Acetaminophen [Tylenol] 650 mg PO Q5H PRN tab PRN Reason: Pain Mirtazapine [Remeron] 15 mg PO HS tab PEG 3350 17gm PACKET [Miralax] 17 gm PO DAILY packet Senna + Docusate [Senna Plus Tablet] 1 tab PO BID tab Continue Gabapentin 300 mg PO TID Albuterol Sulfate 2.5 mg AEROSOL Q6H PRN PRN Reason: Shortness Of Air/Wheezing Metoprolol Tartrate [Lopressor] 25 mg PO BIDWM Trazodone [Desyrel] 50 mg PO HS Pantoprazole Sodium [Protonix] 1 tab PO ACB Atorvastatin [Lipitor] 1 tab PO HS Ferrous Gluconate 1 tab PO WB Cyanocobalamin (Vitamin B-12) [Vitamin B-12] 1 tab PO DAILY Warfarin Sodium [Coumadin] 5 mg PO DAILY Aspirin 1 tab PO DAILY Melatonin/Pyridoxine HCl (B6) [Melatonin 3 mg Tablet] 1 each PO DAILY PRN PRN Reason: Sleep Clotrimazole 1% Cream [LOTRIMIN Cream] 15 applicatio TOP TID Discontinued Acetaminophen [Tylenol 650 mg/20.3 ml Soln] 325 mg PO Q4H PRN PRN Reason: Pain - Disposition 04 To [facility] Home/Facility - Dismissal Complete Discharge Instructions are:: Complete
--- NOTE | 2017-10-05 12:01 | Letter to Referring Physician ---
Dear Dr. Henriquez, This is a brief note to bring you up-to-date on the status of Junior Lee and his stay on the acute inpatient rehabilitation unit at [facility]. As you are aware, Junior suffered an acute cardioembolic stroke affecting the right hemisphere with left hemiparesis in May 2017. He was initially cared for at [facility] and subsequently at [facility]. He was noted to have increased muscle activation of the left side and was therefore transferred to [facility] acute inpatient rehabilitation where he was admitted on 09/14/2017. The PEG tube which had previously been placed in [place] was able to have been removed prior to his arrival here. While on inpatient rehabilitation, this patient was seen by occupational therapy and physical therapy and improved overall in their functional ability. However he tended to "plateau" toward the end of his stay and therefore arrangements were made to transfer him back to [facility] and long-term care. He is not felt to be safe to return home at this time but hopefully with further therapy will improve. He is able to ambulate with a hemiwalker with total assistance of 2 people. He is a high fall risk. He is able to transfer with total assistance of 2 people. The patient will be required to wear a sling on his left upper extremity indefinitely because at this time he has no intentional movement of that. His swallowing ability is fine and his speech is fluent. He does have frequent episodes of crying which may be related to pseudobulbar palsy versus depression. He is on mirtazapine in this regard. His final INR was 2.40 on the day of dismissal (10/05/2017) on warfarin 5 mg daily. I did order another INR early next week with results to you. In addition , the patient was noted to have a small amount of blood in his urethra approximately 15 minutes prior to when [place] was going to pick him up. He had been able to urinate without difficulty 15 minutes prior to that. We have advised the receiving facility to keep an eye on his urination in this regard. Please see a copy of the history and physical examination as well as discharge summary faxed separately for further details. Thank you for allowing us to be involved in this nice patient's care. Please contact me directly should you have any questions regarding their stay on the inpatient rehabilitation unit. Sincerely, Reginald Landaverde M.D.
== END 2017-10-05 12:30 | DRG 57 ==
PROVIDERS: ADMIT Internal Medicine; ATTEND Internal Medicine